=== PATIENT | female | born 1985 | race Caucasian/White ===

== ENCOUNTER → 2016-09-02 | Outpatient (CLI) | payer BC ==
[2016-09-02 11:57] LABS: Basophils % (A) 1 %; CH 32.2; CHCM 34.2; Eosinophils # (A) 0.2 k/uL (0-0.7); Eosinophils % (A) 4 %; HCT 43.9 % (34.0-46.0); HGB 14.4 gm/dL (11.4-16.0); Luc # (Auto) 0.12; Luc % (Auto) 3; Lymphocytes # (A) 0.9 k/uL (1.0-4.8); Lymphocytes % (A) 19 %; MCHC 32.7 g/dL (31.0-37.0); MCV 94.7 fL (80.0-100.0); Mean Platelet Volume 6.2; Monocytes # (A) 0.3 k/uL (0-1.0); Monocytes % (A) 7 %; Neutrophils # (A) 3.2 k/uL (1.3-7.7); Neutrophils % (A) 67 %; RBC 4.64 m/uL (3.80-5.40); RDW 12.2 % (11.5-15.5); WBC 4.8 k/uL (3.8-10.6); WBC (Perox) 5.12
[2016-09-02 12:03] LABS: Prothrombin Time 10.6 sec (9.0-12.0)
[2016-09-02 12:51] LABS: ALT 38 U/L (9-52); AST 33 U/L (14-36); Alkaline Phosphatase 45 U/L (38-126); Anion Gap 12 mmol/L; Blood Urea Nitrogen 14 mg/dL (7-17); Calcium 9.3 mg/dL (8.4-10.2); Carbon Dioxide 27 mmol/L (22-30); Chloride 106 mmol/L (98-107); Glucose 97 mg/dL (74-99); Non-African American GFR(MDRD) >60 (>60 ml/min/1.73 sqM); Potassium 3.7 mmol/L (3.5-5.1); Sodium 145 mmol/L (137-145); Total Bilirubin 0.6 mg/dL (0.2-1.3); Total Protein 8.7 g/dL (6.3-8.2)
== END | disposition home or self-care (01) ==
LOC: LABPAT 11:34
PROVIDERS: ATTEND Surgery Plastic and Reconstructive Surgery
DX: Z01.812 Encounter for preprocedural laboratory examination (principal); Z51.81 Encounter for therapeutic drug level monitoring
CPT/HCPCS: 80053; 85025; 85610; 85730

== ENCOUNTER 2016-09-07 09:21 | Day surgery (SDC) | payer BC, OTHER ==
[2016-09-01 09:37] VITALS: BMI 21.5
--- NOTE | 2016-09-07 06:08 | P.GSHP ---
History of Present Illness H&P Date: 09/07/16 CHIEF COMPLAINT: Incisional hernia. HISTORY OF PRESENT ILLNESS: Anyi Garcia is a 30-year-old female who is now at least 3+ years out from a diaphragmatic hiatal hernia. At that time, she weighed no more than 96 pounds. Today, she comes in with over 20 pound weight gain. She is getting infusions for her underlying Sjogren's disease. She also had a hysterectomy as well as back procedure. She is on multiple pain medications as well MS Contin and Piedmont 10s. She had diagnostic studies that are consistent with hernia of the epigastrium. Incidentally, she is now back on Prilosec as well. She reports that her pain of the epigastrium has become worse in the past month. PAST MEDICAL HISTORY: Lupus. Reynauds disease. Sjogrens. Osteoarthritis. Hypothyroidism. PAST SURGICAL HISTORY: Appendectomy. Cholecystectomy. Left cleft cyst excision. Placement of a titanium screw. Lap Bubba. MEDICATIONS: Please see list. ALLERGIES: Please see list. SOCIAL HISTORY: No illicit drug use FAMILY HISTORY: No reports of Crohn disease or ulcerative colitis. REVIEW OF ORGAN SYSTEMS: CONSTITUTIONAL: No reports of fevers or chills. GI: Denies any blood in stools or constipation. PHYSICAL EXAM: VITAL SIGNS: Stable GENERAL: Well-developed pleasant female in no acute distress. HEENT: No scleral icterus. Extraocular movements grossly intact. Moist buccal mucosa. NECK: Supple without lymphadenopathy. CHEST: Unlabored respirations. Equal bilateral excursions. CARDIOVASCULAR: Regular rate and rhythm. Distal 2+ pulses. Abdomen: Palpable 3 cm epigastric incisional ventral hernia, tender and no skin changes. MUSCULOSKELETAL: No clubbing, cyanosis, or edema. ASSESSMENT: 1. Incisional hernia. 2. Epigastric abdominal pain. 3. Chronic pain syndrome. 4. Gastroesophageal reflux disease. 5. Prior history of Bubba fundoplasty. 6. History of weight gain. 7. Autoimmune disease. 8. Lupus. 9. Sjogren's disease. PLAN: 1. I have recommended laparoscopic incisional ventral hernia repair with possibility of mesh placement. 2. She is an active smoker and I have asked her to discontinue, as this will increase the risk for complications and infections. 3. I have also recommended an upper endoscopy as she has recurrent reflux disease. She is also at risk for gastric ulcers between the steroids and Plaquenil. 4. No lifting over 4 pounds for 4 weeks was advised. 5. Disability paperwork to be filled upon completion of her surgery. 6. DVT prophylaxis. 7. Antibiotics prophylaxis. Past Medical History Past Medical History: Deep Vein Thrombosis (DVT), Fibromyalgia, GERD/Reflux, Liver Disease, Rheumatoid Arthritis (RA), Thyroid Disorder Additional Past Medical History / Comment(s): SJOGREN'S, LUPUS, RAYNAUDS, LIVER TOXICITY, chronic pancreatis, fatty liver, hx thrush, hx anemia, pleurisy, "protein in kidneys" History of Any Multi-Drug Resistant Organisms: None Reported Past Surgical History: Appendectomy, Cholecystectomy, Ear Surgery, Hysterectomy , Tonsillectomy Additional Past Surgical History / Comment(s): ABSCESS after RUPTURED APPENDECTOMY, BENIGN TUMORS REMOVED FROM NECK AND MOUTH, sugery for hiatal hernia, plastic surgery on lower lip, TITANIUM screw insterted in mouth, mediport Past Anesthesia/Blood Transfusion Reactions: Postoperative Nausea & Vomiting ( PONV) Additional Past Anesthesia/Blood Transfusion Reaction / Comment(s): States heart rate very sensitive to anesthesia r/t lupus, occ drop in BP, "I USUALLY NEED STEROIDS TO COME OUT OF SURGERY" Past Psychological History: Anxiety, Depression Smoking Status: Current every day smoker Past Alcohol Use History: Rare Additional Past Alcohol Use History / Comment(s): SMOKES < 1/2 PPD- smoked on and off since age 13 Past Drug Use History: None Reported - Past Family History Mother Family Medical History: No Reported History Medications and Allergies Home Medications Medication Instructions Recorded Confirmed Type Biotin 5 mg PO DAILY 12/11/13 09/01/16 History Benlysta Infusion 1 applicate IV DIRECTED 06/18/15 09/01/16 History Cholecalciferol [Vitamin D3] 5,000 unit PO DAILY 06/18/15 09/01/16 History Hydrocodone/Acetaminophen [Piedmont 1 tab PO QID PRN 06/18/15 09/01/16 History 10-325] methylPREDNISolone 24 mg PO DAILY 06/30/15 09/01/16 History ALPRAZolam [Xanax] 0.25 mg PO BID PRN 09/01/16 09/01/16 History Hydroxychloroquine Sulfate 100 mg PO BID 09/01/16 09/01/16 History [Plaquenil] Levothyroxine Sodium [Synthroid] 125 mcg PO DAILY 09/01/16 09/01/16 History Morphine Sulfate [Ms Contin] 15 mg PO HS PRN 09/01/16 09/01/16 History Morphine Sulfate [Ms Contin] 30 mg PO QAM PRN 09/01/16 09/01/16 History Omeprazole [PriLOSEC] 20 mg PO AC-BRKFST 09/01/16 09/01/16 History Ondansetron HCl [Zofran] 8 mg PO QID PRN 09/01/16 09/01/16 History Allergies Allergy/AdvReac Type Severity Reaction Status Date / Time Penicillins Allergy Rash/Hives Verified 09/01/16 09:17 leflunomide [From Arava] AdvReac liver Verified 09/01/16 09:17 toxicity
[~2016-09-07 09:21] MED LIST: ACETAMINOPHEN IVPB ONE; BUPIVACAINE LIPOSOME/PF 1.3% 20 ML, BUPIVACAIN-EPI 0.5%-1:200,000 25 ML, SODIUM CHLORID... MISCELLANE ONE; DEXAMETHASONE SOD PHOSPHATE 10 MG/ML 1 ML VIAL IV ONE; HEPARIN SODIUM,PORCINE 5,000 UNIT/ML 1 ML VIAL SQ ONE; HYDROCORTISONE SUCCINATE 100 MG/2 ML VIAL IV STA; LACTATED RINGERS 1,000 ML IV SCH; LIDOCAINE 1% 20 ML VIAL (10MG/ML) FOR IV START INTRADERMA PRN; ONDANSETRON 4 MG/2 ML VIAL IVP ONE; SCOPOLAMINE 1.5MG/72HR PATCH TRANSDERM ONE; ceFAZolin 2 GM in SODIUM CHLORIDE 0.9% 100 ML IVPB ONE
[2016-09-07 10:20] LABS: Glucose,Whole Blood 68 mg/dL (75-99)
[2016-09-07] MEDS ORDERED: GLYCOPYRROLATE 0.2 MG/ML 2 ML VIAL ONE (11:15)
[2016-09-07] MEDS ORDERED: LIDOCAINE 1% INJ 10MG/ML (20 ML MDV) ONE (11:15)
[2016-09-07] MEDS ORDERED: PROPOFOL 10 MG/ML 20 ML VIAL IV ONE (11:15)
[2016-09-07] MEDS ORDERED: fentaNYL (PF) 50 MCG/ML 2 ML AMP ONE (11:15)
[2016-09-07] MEDS ORDERED: NEOSTIGMINE 1 MG/ML 10 ML VIAL ONE (11:15)
[2016-09-07] MEDS ORDERED: SUCCINYLCHOLINE CHLORIDE 100 MG/5 ML SYR IV ONE (11:15)
[2016-09-07] MEDS ORDERED: ROCURONIUM BROMIDE 10 MG/ML 10 ML VIAL IV ONE (11:15)
[2016-09-07] MEDS ORDERED: MIDAZOLAM 2 MG/2 ML VIAL ONE (11:15)
[2016-09-07] MEDS ORDERED: LACTATED RINGERS 1,000 ML IV ONE (11:57)
--- NOTE | 2016-09-07 12:26 | P.OP ---
Date of Procedure: 09/07/16 Description of Procedure: SURGEON: PAULA FIGUEROA MD PREOPERATIVE DIAGNOSIS: 1. Incisional epigastric ventral hernia, epigastrium, initial. 2. History of tobacco use. 3. Depression without acute psychosis. 4. Anxiety. 5. Systemic lupus. 6. Sjgren's disease. 7. Chronic pain syndrome. 8. Hypothyroidism. 9. Adrenal insufficiency. 10. Gastroesophageal reflux disease. 11. History of gastric ulcers. POSTOPERATIVE DIAGNOSIS: 1. Incisional epigastric ventral hernia, epigastrium, initial. 2. History of tobacco use. 3. Depression without acute psychosis. 4. Anxiety. 5. Systemic lupus. 6. Sjgren's disease. 7. Chronic pain syndrome. 8. Hypothyroidism. 9. Adrenal insufficiency. 10. Gastroesophageal reflux disease. 11. History of gastric ulcers. 12. Incarcerated incisional epigastric ventral hernia, 3 cm. OPERATION: 1. Laparoscopic ventral hernia repair with Bard Ventralight ST mesh 11.4 cm, circular mesh. 2. Peritoneal abdominal wall block along the epigastrium with Exparel. 3. Intraoperative esophagogastroduodenoscopy with biopsy along the antrum (see separate operative note.) ANESTHESIA: General with 85 mL with Exparel, Sensorcaine epinephrine and normal saline mixture ESTIMATED BLOOD LOSS: 2 mL SPECIMENS REMOVED: Antrum COMPLICATIONS: None. INDICATIONS: The patient is a 30-year-old female who presents with symptomatic bulge along the epigastrium with abdominal pain. Clinical exam is consistent with a ventral hernia from a previous incision. She was encouraged to discontinue tobacco use asked to optimize her perioperative and postsurgical care. Benefits and risks were described including placement of mesh. Informed consent was obtained. DESCRIPTION: Patient was brought into the operating room, laid in supine position. After general induction, abdomen was prepped and draped in standard sterile fashion, including placement of Ioban draping. Prior to incision, a timeout protocol was performed with the surgical team, confirming the patient's name, procedure to be performed, including preoperative medications, for which she received IV antibiotics. A 5 mm transverse incision was made along the left upper abdomen. A 0-degree 5 mm laparoscopic trocar entry was entered into peritoneal cavity. Diagnostic laparoscopy demonstrated no entry to bowel, viscera or mesentery. The liver surface was unremarkable. The small bowel was unremarkable. A defect was confirmed along the epigastrium at the falciform ligament abdominal wall. Two other 5 mm trocars were placed, one along the left lateral abdominal wall and the other along the right lateral abdominal wall under direct visualization. Attention was then brought to the abdominal wall, where a 3 cm defect involving the falciform ligament at the epigastrium was reduced into abdominal cavity. The abdominal fat was cleaned from the abdominal wall for application of a Ventralight mesh. The fascial defect of 3 cm was found and an 11.4 cm mesh was selected. Via the epigastric port, the mesh was inserted into abdominal cavity. A peritoneal block of 85 mL Exparel mixture was placed along the epigastrium and along the hernia site to minimize postoperative pain. Next, the Ventralight ST mesh was placed into the abdominal cavity after placing a loop of 1-0 Prolene at the epicenter. Faisal-Alison was used to draw the loop of the central portion of the mesh through the skin. On the periphery, Sorbafix was placed including along the body of the mesh. The tackers were placed approximately 1 cm in distance along the edge of the mesh. All instruments and pneumoperitoneum were removed from the abdominal cavity. Incisions were reapproximated using 4-0 Monocryl in an interrupted fashion. Dermabond was applied to the skin. Once dried, an abdominal binder was placed. An intraoperative esophagogastroduodenoscopy was performed. Please see separate operative note. At the end of the procedure, needle, sponge and instrument count was verified correct by the surgical supplies sterilizer. The patient had tolerated the procedure well and was awakened from anesthesia without sequelae. Intraoperative films were shared with the patient's family who were pleased with level of care. FINDINGS: 1. A 3-cm incarcerated ventral hernia at the epigastrium.
[2016-09-07] MEDS ORDERED: ONDANSETRON 4 MG/2 ML VIAL IVP PRN (12:27)
[2016-09-07] MEDS ORDERED: PROMETHAZINE 25 MG TAB PO PRN (12:27)
[2016-09-07] MEDS ORDERED: HYDROcodone/APAP 5-325MG 1 EACH TAB PO PRN (12:27)
[2016-09-07] MEDS ORDERED: NALOXONE 0.4 MG/ML 1 ML VIAL IV PRN (12:27)
[2016-09-07 12:28] VITALS: TEMP 97.2
[2016-09-07] MEDS ORDERED: KETOROLAC 30 MG/ML 1 ML VIAL IVP ONE (12:30)
--- NOTE | 2016-09-07 12:31 | P.PCN ---
Date of Procedure: 09/07/16 Description of Procedure: PREOPERATIVE DIAGNOSIS: History of gastric ulcers. Epigastric abdominal pain. Chronic steroid use. History of fundoplasty. POSTOPERATIVE DIAGNOSIS: History of gastric ulcers. Epigastric abdominal pain. Chronic steroid use. Gastroesophageal reflux disease. History of fundoplasty. OPERATION: Esophagogastroduodenoscopy with biopsies along antrum. SURGEON: Glenna Dockery MD ANESTHESIA: MAC. INDICATIONS: The patient is a 30-year-old female who presents with a history of reflux disease. Benefits and risks of the procedure were described. Informed consent was obtained. DESCRIPTION: The patient was brought into the endoscopy suite and laid in the left lateral decubitus position. An Olympus gastroscope was passed along the posterior oropharynx down to the distal esophagus where the squamocolumnar junction was encountered with 1 cm recurrence of her hiatal hernia. The stomach was entered and no bile reflux was found. Additional findings are listed below. Biopsies with cold forceps were obtained of the antrum. The first through third portion of the duodenum was examined and unremarkable. Retroflexion of the scope confirmed Hill grade II/III lower esophageal valve consistent with loosening of her Bubba fundoplasty. The squamocolumnar junction demostrated acute LA grade A erosive esophagitis. The stomach was desufflated. The patient tolerated the procedure well. FINDINGS: Squamocolumnar junction 35 cm from the incisors. Hill grade II/II lower esophageal valve. LA grade A erosive esophagitis. No active duodenitis. Chronic gastritis without evidence of ulcers. 1 cm recurrent diaphragmatic hiatal hernia. RECOMMENDATIONS: Continue medical therapy. Further recommendations pending results of pathology report. Upper endoscopy as needed.
[2016-09-07] MEDS: HYDROmorphone 1 MG/ML 1 ML SYRINGE IVP PRN ×8 (12:33→13:34)
[2016-09-07] MEDS: MIDAZOLAM 2 MG/2 ML VIAL IVP ONE ×3 (12:52→14:01)
[2016-09-07] MEDS ORDERED: MIDAZOLAM 2 MG/2 ML VIAL IVP ONE (12:53)
[2016-09-07 14:35] VITALS: RESP 14
[2016-09-07 15:54] VITALS: BP 119/65; PULSE 61
== END 2016-09-07 16:06 | disposition home or self-care (01) ==
LOC: OR 09:21
PROVIDERS: ATTEND Surgery Plastic and Reconstructive Surgery
DX: K43.0 Incisional hernia with obstruction, without gangrene (principal); K21.0 Gastro-esophageal reflux disease with esophagitis; K29.50 Unspecified chronic gastritis without bleeding; K44.9 Diaphragmatic hernia without obstruction or gangrene; Z87.11 Personal history of peptic ulcer disease; M35.00 Sjogren syndrome, unspecified; M32.9 Systemic lupus erythematosus, unspecified; M19.90 Unspecified osteoarthritis, unspecified site; E03.9 Hypothyroidism, unspecified; G89.4 Chronic pain syndrome; M79.7 Fibromyalgia; M06.9 Rheumatoid arthritis, unspecified; K76.0 Fatty (change of) liver, not elsewhere classified; F41.9 Anxiety disorder, unspecified; F32.9 Major depressive disorder, single episode, unspecified; E27.40 Unspecified adrenocortical insufficiency; Z86.718 Personal history of other venous thrombosis and embolism; Z79.891 Long term (current) use of opiate analgesic; Z79.52 Long term (current) use of systemic steroids; Z79.899 Other long term (current) drug therapy; F17.200 Nicotine dependence, unspecified, uncomplicated; Z88.0 Allergy status to penicillin
CPT/HCPCS: 81025; 88305; 88342; 49655; 43239; C1781 ×2; J2250; J1644; J1100; J2710; J1720; J0690; J2405; J2001; J3010; J1885; J1170; J1642; J0131; J0330; C9290; J2704

== ENCOUNTER 2017-01-26 11:49 | Observation (INO) | payer BC, OTHER ==
[2017-01-26] MEDS ORDERED: SODIUM CHLORIDE 0.9% 1,000 ML IV STA (12:32)
[2017-01-26] MEDS ORDERED: RX INFO: IV CONTRAST WAS GIVEN 1 EACH MISC MISCELLANE PRN (12:32)
[2017-01-26] MEDS ORDERED: DICYCLOMINE 10 MG/ML 2 ML AMP IM STA (12:32)
[2017-01-26] MEDS ORDERED: SODIUM CHLORIDE 0.9% 500 ML IV STA (12:32)
[2017-01-26] MEDS ORDERED: ONDANSETRON 4 MG/2 ML VIAL IVP STA (12:32)
[2017-01-26] MEDS ORDERED: FAMOTIDINE 20 MG/2 ML VIAL IV STA (12:33)
--- NOTE | 2017-01-26 12:37 | ED ---
General Adult HPI - General Chief complaint: Abdominal Pain Stated complaint: chest pain, swollen lymph, jaundice Time Seen by Provider: 01/26/17 12:24 Source: patient, RN notes reviewed Mode of arrival: wheelchair Limitations: no limitations - History of Present Illness Initial comments: Patient is a pleasant 31-year-old female presenting to the emergency department complaining of not feeling well. Patient states symptoms have been present for a couple of weeks. Patient feels fatigued. Patient has chest discomfort and abdominal discomfort. Patient has been having a lot of diarrhea. Patient was told her eyes look jaundiced. Patient does have nausea. No vomiting. Patient noticed lymph node behind her left neck that seems to be varying in size this. Patient states her fingers have been tingly at times which she attributes to her Raynaud's and states there is associated discoloration of the fingertips. - Related Data Home Medications Medication Instructions Recorded Confirmed Biotin 5 mg PO DAILY 12/11/13 01/26/17 Benlysta Infusion 1 applicate IV Q28D 06/18/15 01/26/17 Cholecalciferol [Vitamin D3] 5,000 unit PO DAILY 06/18/15 01/26/17 Hydrocodone/Acetaminophen [Caro 1 tab PO QID PRN 06/18/15 01/26/17 10-325] methylPREDNISolone 24 mg PO DAILY 06/30/15 01/26/17 ALPRAZolam [Xanax] 0.25 mg PO BID PRN 09/01/16 01/26/17 Hydroxychloroquine Sulfate 200 mg PO BID 09/01/16 01/26/17 [Plaquenil] Levothyroxine Sodium [Synthroid] 125 mcg PO DAILY 09/01/16 01/26/17 Omeprazole [PriLOSEC] 20 mg PO AC-BRKFST 09/01/16 01/26/17 Ondansetron [Zofran] 4 mg PO Q8H 01/26/17 01/26/17 fentaNYL 25MCG/HR PATCH [Duragesic 1 patch TOPICAL Q72H 01/26/17 01/26/17 25MCG/HR] Previous Rx's Medication Instructions Recorded Hydrocodone/Acetaminophen [Caro 1 each PO Q4HR PRN #15 tab 01/26/17 5-325] Levofloxacin [Levaquin] 500 mg PO DAILY #10 tab 01/26/17 Ondansetron Odt [Zofran Odt] 4 mg PO Q8HR PRN #10 tab 01/26/17 Allergies Allergy/AdvReac Type Severity Reaction Status Date / Time Penicillins Allergy Rash/Hives Verified 01/26/17 13:04 leflunomide [From Arava] AdvReac liver Verified 01/26/17 13:04 toxicity Review of Systems ROS Statement: Those systems with pertinent positive or pertinent negative responses have been documented in the HPI. ROS Other: All systems not noted in ROS Statement are negative. Constitutional: Denies: fever Eyes: Denies: eye pain ENT: Denies: ear pain Respiratory: Denies: cough Cardiovascular: Reports: chest pain Endocrine: Reports: fatigue Gastrointestinal: Reports: abdominal pain, nausea, diarrhea Genitourinary: Denies: dysuria Musculoskeletal: Denies: back pain Skin: Reports: rash (Patient had a sudden rash or couple of weeks ago however this has resolved). Denies: lesions Neurological: Reports: weakness (Generalized) Past Medical History Past Medical History: Deep Vein Thrombosis (DVT), Fibromyalgia, GERD/Reflux, Liver Disease, Rheumatoid Arthritis (RA), Thyroid Disorder Additional Past Medical History / Comment(s): SJOGREN'S, LUPUS, RAYNAUDS, LIVER TOXICITY, chronic pancreatis, fatty liver, hx thrush, hx anemia, pleurisy, "protein in kidneys" History of Any Multi-Drug Resistant Organisms: None Reported Past Surgical History: Appendectomy, Cholecystectomy, Ear Surgery, Hysterectomy , Tonsillectomy Additional Past Surgical History / Comment(s): ABSCESS after RUPTURED APPENDECTOMY, BENIGN TUMORS REMOVED FROM NECK AND MOUTH, sugery for hiatal hernia, plastic surgery on lower lip, TITANIUM screw insterted in mouth, mediport Past Anesthesia/Blood Transfusion Reactions: Postoperative Nausea & Vomiting ( PONV) Additional Past Anesthesia/Blood Transfusion Reaction / Comment(s): States heart rate very sensitive to anesthesia r/t lupus, occ drop in BP, "I USUALLY NEED STEROIDS TO COME OUT OF SURGERY" Past Psychological History: Anxiety, Depression Smoking Status: Current every day smoker Past Alcohol Use History: Rare Past Drug Use History: None Reported - Past Family History Mother Family Medical History: No Reported History General Exam Limitations: no limitations General appearance: alert, in no apparent distress Head exam: Present: atraumatic Eye exam: Present: normal appearance, PERRL, EOMI. Absent: scleral icterus ENT exam: Present: normal oropharynx Neck exam: Present: normal inspection Respiratory exam: Present: normal lung sounds bilaterally Cardiovascular Exam: Present: regular rate, normal rhythm Expanded Peripheral pulses: 2+: Radial (R), Radial (L), Dorsalis Pedis (R), Dorsalis Pedis (L) GI/Abdominal exam: Present: soft, tenderness (Mild to moderate diffuse tenderness), normal bowel sounds. Absent: distended, guarding, rebound, rigid, pulsatile mass Extremities exam: Present: normal inspection Neurological exam: Present: alert Psychiatric exam: Present: normal affect, normal mood Skin exam: Present: normal color Course Vital Signs 01/26/17 01/26/17 11:55 15:16 Temperature 98.1 F 98.5 F Pulse Rate 81 51 L Respiratory 18 15 Rate Blood Pressure 143/92 140/81 O2 Sat by Pulse 100 100 Oximetry EKG Findings - EKG Comments: EKG Findings:: Normal sinus rhythm 65. Normal intervals. Normal axis. Normal QRS. No acute ST change. Medical Decision Making - Medical Decision Making Blood work was drawn from the patient's port which does explain elevated PTT alone. Patient reexamined and resting comfortably in bed. Abdomen still with mild tenderness left lower quadrant. Patient offered admission however would like to go home. Patient was updated on results. - Lab Data Result diagrams: 01/26/17 13:25 01/26/17 13:25 Lab Results 01/26/17 01/26/17 01/26/17 Range/Units 13:25 13:25 13:25 WBC 8.7 (3.8-10.6) k/uL RBC 4.23 (3.80-5.40) m/uL Hgb 13.8 (11.4-16.0) gm/dL Hct 38.9 (34.0-46.0) % MCV 92.0 (80.0-100.0) fL MCH 32.6 (25.0-35.0) pg MCHC 35.4 (31.0-37.0) g/dL RDW 12.8 (11.5-15.5) % Plt Count 234 (150-450) k/uL Neutrophils % 78 % Lymphocytes % 12 % Monocytes % 6 % Eosinophils % 2 % Basophils % 1 % Neutrophils # 6.8 (1.3-7.7) k/uL Lymphocytes # 1.1 (1.0-4.8) k/uL Monocytes # 0.5 (0-1.0) k/uL Eosinophils # 0.2 (0-0.7) k/uL Basophils # 0.1 (0-0.2) k/uL PT (9.0-12.0) sec INR (<1.1) APTT (22.0-30.0) sec Sodium 142 (137-145) mmol/L Potassium 3.7 (3.5-5.1) mmol/L Chloride 106 (98-107) mmol/L Carbon Dioxide 25 (22-30) mmol/L Anion Gap 11 mmol/L BUN 9 (7-17) mg/dL Creatinine 0.69 (0.52-1.04) mg/dL Est GFR (MDRD) Af Amer >60 (>60 ml/min/1.73 sqM) Est GFR (MDRD) Non-Af >60 (>60 ml/min/1.73 sqM) Glucose 91 (74-99) mg/dL Calcium 9.6 (8.4-10.2) mg/dL Total Bilirubin 0.6 (0.2-1.3) mg/dL AST 22 (14-36) U/L ALT 25 (9-52) U/L Alkaline Phosphatase 49 (38-126) U/L Total Creatine Kinase 53 (30-135) U/L CK-MB (CK-2) 0.4 (0.0-2.4) ng/mL CK-MB (CK-2) Rel Index 0.8 Troponin I <0.012 (0.000-0.034) ng/mL Total Protein 8.6 H (6.3-8.2) g/dL Albumin 4.7 (3.5-5.0) g/dL Amylase 119 H (30-110) U/L Lipase 215 (23-300) U/L Urine Color Urine Appearance (Clear) Urine pH (5.0-8.0) Ur Specific [place] (1.001-1.035) Urine Protein (Negative) Urine Glucose (UA) (Negative) Urine Ketones (Negative) Urine Blood (Negative) Urine Nitrite (Negative) Urine Bilirubin (Negative) Urine Urobilinogen (<2.0) mg/dL Ur Leukocyte Esterase (Negative) Urine RBC (0-5) /hpf Urine WBC (0-5) /hpf Ur Squamous Epith Cells (0-4) /hpf Amorphous Sediment (None) /hpf Urine Bacteria (None) /hpf Urine Mucus (None) /hpf Urine HCG, Qual (Not Detectd) 01/26/17 01/26/17 01/26/17 Range/Units 13:25 13:25 13:25 WBC (3.8-10.6) k/uL RBC (3.80-5.40) m/uL Hgb (11.4-16.0) gm/dL Hct (34.0-46.0) % MCV (80.0-100.0) fL MCH (25.0-35.0) pg MCHC (31.0-37.0) g/dL RDW (11.5-15.5) % Plt Count (150-450) k/uL Neutrophils % % Lymphocytes % % Monocytes % % Eosinophils % % Basophils % % Neutrophils # (1.3-7.7) k/uL Lymphocytes # (1.0-4.8) k/uL Monocytes # (0-1.0) k/uL Eosinophils # (0-0.7) k/uL Basophils # (0-0.2) k/uL PT 11.4 (9.0-12.0) sec INR 1.1 (<1.1) APTT 99.2 H* (22.0-30.0) sec Sodium (137-145) mmol/L Potassium (3.5-5.1) mmol/L Chloride (98-107) mmol/L Carbon Dioxide (22-30) mmol/L Anion Gap mmol/L BUN (7-17) mg/dL Creatinine (0.52-1.04) mg/dL Est GFR (MDRD) Af Amer (>60 ml/min/1.73 sqM) Est GFR (MDRD) Non-Af (>60 ml/min/1.73 sqM) Glucose (74-99) mg/dL Calcium (8.4-10.2) mg/dL Total Bilirubin (0.2-1.3) mg/dL AST (14-36) U/L ALT (9-52) U/L Alkaline Phosphatase (38-126) U/L Total Creatine Kinase (30-135) U/L CK-MB (CK-2) (0.0-2.4) ng/mL CK-MB (CK-2) Rel Index Troponin I (0.000-0.034) ng/mL Total Protein (6.3-8.2) g/dL Albumin (3.5-5.0) g/dL Amylase (30-110) U/L Lipase (23-300) U/L Urine Color Light Yellow Urine Appearance Cloudy H (Clear) Urine pH 7.5 (5.0-8.0) Ur Specific [place] 1.006 (1.001-1.035) Urine Protein Negative (Negative) Urine Glucose (UA) Negative (Negative) Urine Ketones Negative (Negative) Urine Blood Negative (Negative) Urine Nitrite Negative (Negative) Urine Bilirubin Negative (Negative) Urine Urobilinogen <2.0 (<2.0) mg/dL Ur Leukocyte Esterase Negative (Negative) Urine RBC 1 (0-5) /hpf Urine WBC 3 (0-5) /hpf Ur Squamous Epith Cells 13 H (0-4) /hpf Amorphous Sediment Rare H (None) /hpf Urine Bacteria Rare H (None) /hpf Urine Mucus Rare H (None) /hpf Urine HCG, Qual Not Detected (Not Detectd) Disposition Clinical Impression: Acute colitis Disposition: HOME SELF-CARE Condition: Stable Instructions: Colitis (ED) Additional Instructions: Please follow-up with your primary care physician in the next day or 2 for recheck. Return for fevers, increased pain, weakness, worsening symptoms or other concerns. Prescriptions: Hydrocodone/Acetaminophen [Caro 5-325] 1 each PO Q4HR PRN #15 tab PRN Reason: Pain Levofloxacin [Levaquin] 500 mg PO DAILY #10 tab Ondansetron Odt [Zofran Odt] 4 mg PO Q8HR PRN #10 tab PRN Reason: Nausea Referrals: Steven Ferguson MD [Primary Care Provider] - 1-2 days Time of Disposition: 16:11
[2017-01-26 13:41] LABS: Basophils # (A) 0.1 k/uL (0-0.2); Basophils % (A) 1 %; CH 32.8; CHCM 35.9; Eosinophils # (A) 0.2 k/uL (0-0.7); Eosinophils % (A) 2 %; HCT 38.9 % (34.0-46.0); HDW 2.87; HGB 13.8 gm/dL (11.4-16.0); Luc % (Auto) 1; Lymphocytes # (A) 1.1 k/uL (1.0-4.8); Lymphocytes % (A) 12 %; MCH 32.6 pg (25.0-35.0); MCHC 35.4 g/dL (31.0-37.0); Mean Platelet Volume 6.8; Monocytes # (A) 0.5 k/uL (0-1.0); Monocytes % (A) 6 %; Neutrophils # (A) 6.8 k/uL (1.3-7.7); Neutrophils % (A) 78 %; RBC 4.23 m/uL (3.80-5.40); RDW 12.8 % (11.5-15.5); WBC 8.7 k/uL (3.8-10.6); WBC (Perox) 8.16
[2017-01-26 13:47] LABS: Amorphous Sediment,Urine Rare /hpf; Appearance,Urine Cloudy (Clear); Bacteria,Urine Rare /hpf; Bilirubin,Urine Negative (Negative); Glucose,Urine (UA) Negative (Negative); Ketones,Urine Negative (Negative); Leukocyte Esterase,Urine Negative (Negative); Mucus,Urine Rare /hpf; Nitrite,Urine Negative (Negative); PH, Urine 7.5 (5.0-8.0); Particle Count 5595; Protein,Urine Negative (Negative); RBC,Urine 1 /hpf (0-5); Specific Gravity,Urine 1.006 (1.001-1.035); Squamous Epithelial Cell,Urine 13 /hpf (0-4); UA Billing (MACRO vs. MICRO) MICRO; Urobilinogen,Urine <2.0 mg/dL (<2.0); WBC,Urine 3 /hpf (0-5)
[2017-01-26 13:51] LABS: ALT 25 U/L (9-52); AST 22 U/L (14-36); Alkaline Phosphatase 49 U/L (38-126); Amylase 119 U/L (30-110); Anion Gap 11 mmol/L; Blood Urea Nitrogen 9 mg/dL (7-17); Calcium 9.6 mg/dL (8.4-10.2); Carbon Dioxide 25 mmol/L (22-30); Chloride 106 mmol/L (98-107); Glucose 91 mg/dL (74-99); Non-African American GFR(MDRD) >60 (>60 ml/min/1.73 sqM); Potassium 3.7 mmol/L (3.5-5.1); Sodium 142 mmol/L (137-145); Total Bilirubin 0.6 mg/dL (0.2-1.3); Total Protein 8.6 g/dL (6.3-8.2)
[2017-01-26 14:07] LABS: INR 1.1 (<1.1); Prothrombin Time 11.4 sec (9.0-12.0)
[2017-01-26 14:09] LABS: Creatine Kinase 53 U/L (30-135)
[2017-01-26 14:22] LABS: Creatine Kinase MB 0.4 ng/mL (0.0-2.4); Troponin I <0.012 ng/mL (0.000-0.034)
[2017-01-26 14:44] LABS: Partial Thromboplastin Time 99.2 sec (22.0-30.0)
--- NOTE | 2017-01-26 15:41 | XR ---
EXAMINATION TYPE: XR chest 2V DATE OF EXAM: 01/26/2017 COMPARISON: None HISTORY: 31-year-old female with abdominal pain TECHNIQUE: Frontal and lateral views FINDINGS: Right anterior chest wall injection port with catheter tip at the lower SVC. The cardiomediastinal silhouette, aorta, and pulmonary vasculature are within normal limits. No conso lidation or pleural effusion. IMPRESSION: No focal infiltrate. Right-sided chest port in place.
--- NOTE | 2017-01-26 15:44 | CT ---
EXAMINATION TYPE: CT abdomen pelvis w con DATE OF EXAM: 01/26/2017 COMPARISON: Prior CT abdomen pelvis 03/08/2013 HISTORY: Pt states of abdominal pain. HX of lupus. CT DLP: 332.4 mGycm Automated exposure control for dose reduction was used. TECHNIQUE: Helical acquisition of images from the lung bases through the pelvis have been completed. CONTRAST: Performed without Oral Contrast and with IV Contrast, patient injected with 100 mL of Omnipaque 300. FINDINGS: Patient is post Bubba fundoplication. LUNG BASES: No significant abnormality is appreciated. AORTA: No significant abnormality is appreciated. LIVER/GB: Liver shows low attenuation likely due to fatty infiltration. Gallbladder is absent. The li madeline is enlarged. PANCREAS: No significant abnormality is seen. SPLEEN: No significant abnormality is seen. ADRENALS: No significant abnormality is seen. KIDNEYS: No significant abnormality is seen. REPRODUCTIVE ORGANS: There is likely an involuting cyst in the right adnexal region, ovaries are othe rwise unremarkable, uterus is absent BOWEL: Since thickening present of the rectosigmoid colon. There are some fluid-filled loops of smal l bowel present. No evident obstruction. Suspect post appendectomy change. FREE AIR: No Free Air visible. ASCITES: None visible. PELVIC ADENOPATHY: None visualized. RETROPERITONEAL ADENOPATHY: No Retroperitoneal Adenopathy visible. URINARY BLADDER: No significant abnormality is seen. OSSEOUS STRUCTURES: No significant abnormality is seen. IMPRESSION: POSTOP CHANGES. INVOLUTING RIGHT OVARIAN CYST. CORRELATE TO EXCLUDE COLITIS , ENTERITIS. 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
[2017-01-26] MEDS ORDERED: MORPHINE SULFATE 4 MG/ML SYRINGE IV STA (16:06)
[2017-01-26] MEDS ORDERED: ONDANSETRON 4 MG/2 ML VIAL IVP PRN (16:39)
[2017-01-26] MEDS ORDERED: NALOXONE 0.4 MG/ML 1 ML VIAL IV PRN (16:39)
[2017-01-26] MEDS ORDERED: LEVOFLOXACIN 500MG-D5W PMX 500 MG in DEXTROSE/WATER 1 100ML.BAG IVPB STA (16:45)
[2017-01-26 18:25] VITALS: BMI 34.9
[2017-01-26] MEDS: SODIUM CHLORIDE 0.9% 1,000 ML IV SCH ×2 (18:30→23:30)
[2017-01-26] MEDS ORDERED: ALPRAZolam 0.25 MG TAB PO PRN (18:44)
[2017-01-26] MEDS: HYDROXYCHLOROQUINE SULFATE 200 MG TAB PO SCH (20:20)
[2017-01-26] MEDS: MORPHINE SULFATE 4 MG/ML SYRINGE IV PRN (20:34)
[2017-01-26] MEDS: HEPARIN SODIUM,PORCINE 5,000 UNIT/ML 1 ML VIAL SQ SCH (23:29)
[2017-01-26] MEDS: metroNIDAZOLE-NS PMX 500 MG in SALINE 1 100ML.BAG IVPB SCH (23:30)
[2017-01-26] MEDS: HYDROcodone/APAP 10-325MG 1 EACH TAB PO PRN (23:31)
[2017-01-27] MEDS: MORPHINE SULFATE 4 MG/ML SYRINGE IV PRN ×2 (02:57→08:00)
[2017-01-27] MEDS ORDERED: LEVOTHYROXINE 125 MCG TAB PO SCH (06:30)
[2017-01-27] MEDS ORDERED: NON-FORMULARY DRUG (Omeprazole 20 MG) PO SCH (07:30)
[2017-01-27 07:39] VITALS: BP 95/47; RESP 16; TEMP 97.4
[2017-01-27] MEDS: metroNIDAZOLE-NS PMX 500 MG in SALINE 1 100ML.BAG IVPB SCH (07:58)
[2017-01-27] MEDS ORDERED: methylPREDNISolone 4 MG TAB PO SCH (09:00)
[2017-01-27] MEDS ORDERED: PANTOPRAZOLE 40 MG/10 ML VIAL IV SCH (09:00)
[2017-01-27] MEDS ORDERED: NON-FORMULARY DRUG (Biotin [Biotin] 5 MG) PO SCH (09:00)
[2017-01-27] MEDS: HEPARIN SODIUM,PORCINE 5,000 UNIT/ML 1 ML VIAL SQ SCH (09:05)
[2017-01-27] MEDS: HYDROXYCHLOROQUINE SULFATE 200 MG TAB PO SCH (09:05)
[2017-01-27] MEDS: HYDROcodone/APAP 10-325MG 1 EACH TAB PO PRN (10:38)
[2017-01-27 10:47] VITALS: PULSE 47
--- NOTE | 2017-01-27 10:54 | P.CRDCN ---
History of Present Illness Consult date: 01/27/17 History of present illness: 31-year-old lady with history of lupus comes to hospital with symptoms of diarrhea not feeling well and cardiology has been consulted because of bradycardia. She does not have chest pain difficulty in breathing dizziness or focal neurological deficits. There is no prior cardiac history. There is no history of hypertension diabetes dyslipidemia. I believe patient has physiological sinus bradycardia and does not require further evaluation at this time. I reviewed her echocardiogram that was being done that is within normal limits. Review of Systems Constitutional: Denies chills. Denies fever. Eyes: Denies blurred vision. Denies pain. Ears, nose, mouth and throat: Denies headache. Denies sore throat. Cardiovascular: Denies chest pain. Denies shortness of breath. Respiratory: Denies cough. Gastrointestinal: abdominal pain. has diarrhea. Denies nausea. Denies vomiting. Musculoskeletal: Denies myalgias. Integumentary: Denies pruritus. Denies rash. Neurological: Denies numbness. Denies weakness. Psychiatric: Denies anxiety. Denies depression. Endocrine: Denies fatigue. Denies weight change. Genitourinary: Denies burning, hematuria, frequency of urination. Hematological: No anemia or excess bleeding. Past Medical History Past Medical History: Deep Vein Thrombosis (DVT), Fibromyalgia, GERD/Reflux, Liver Disease, Rheumatoid Arthritis (RA), Thyroid Disorder Additional Past Medical History / Comment(s): SJOGREN'S, LUPUS, RAYNAUDS, LIVER TOXICITY, chronic pancreatis, fatty liver, hx thrush, hx anemia, pleurisy, "protein in kidneys" History of Any Multi-Drug Resistant Organisms: None Reported Past Surgical History: Appendectomy, Cholecystectomy, Ear Surgery, Hernia Repair , Hysterectomy, Tonsillectomy Additional Past Surgical History / Comment(s): ABSCESS after RUPTURED APPENDECTOMY, BENIGN TUMORS REMOVED FROM NECK AND MOUTH, sugery for hiatal hernia, plastic surgery on lower lip, TITANIUM screw insterted in mouth, Mediport 2013; sliding hernia surgery with mesh Past Anesthesia/Blood Transfusion Reactions: Postoperative Nausea & Vomiting ( PONV) Additional Past Anesthesia/Blood Transfusion Reaction / Comment(s): States heart rate very sensitive to anesthesia r/t lupus, occ drop in BP, "I USUALLY NEED STEROIDS TO COME OUT OF SURGERY" Past Psychological History: Anxiety, Depression Smoking Status: Current every day smoker Past Alcohol Use History: Rare Past Drug Use History: None Reported - Past Family History Mother Family Medical History: No Reported History Medications and Allergies Home Medications Medication Instructions Recorded Confirmed Type Biotin 5 mg PO DAILY 12/11/13 01/26/17 History Benlysta Infusion 1 applicate IV Q28D 06/18/15 01/26/17 History Cholecalciferol [Vitamin D3] 5,000 unit PO DAILY 06/18/15 01/26/17 History Hydrocodone/Acetaminophen [[place] 1 tab PO QID PRN 06/18/15 01/26/17 History 10-325] methylPREDNISolone 24 mg PO DAILY 06/30/15 01/26/17 History ALPRAZolam [Xanax] 0.25 mg PO BID PRN 09/01/16 01/26/17 History Hydroxychloroquine Sulfate 200 mg PO BID 09/01/16 01/26/17 History [Plaquenil] Levothyroxine Sodium [Synthroid] 125 mcg PO DAILY 09/01/16 01/26/17 History Omeprazole [PriLOSEC] 20 mg PO AC-BRKFST 09/01/16 01/26/17 History Ondansetron [Zofran] 4 mg PO Q8H 01/26/17 01/26/17 History fentaNYL 25MCG/HR PATCH [Duragesic 1 patch TOPICAL Q72H 01/26/17 01/26/17 History 25MCG/HR] Allergies Allergy/AdvReac Type Severity Reaction Status Date / Time Penicillins Allergy Rash/Hives Verified 01/26/17 13:04 leflunomide [From [facility]] AdvReac liver Verified 01/26/17 13:04 toxicity Physical Exam Vitals: Vital Signs Temp Pulse Pulse Resp BP BP Pulse Ox 01/27/17 08:00 47 L 01/27/17 07:38 97.4 F L 45 L 16 95/47 98 01/27/17 00:00 97.0 F L 45 L 18 107/58 100 01/26/17 18:46 52 L 01/26/17 16:29 98.2 F 55 L 18 134/82 97 01/26/17 15:16 98.5 F 51 L 15 140/81 100 01/26/17 11:55 98.1 F 81 18 143/92 100 Intake and Output 01/26/17 01/27/17 01/27/17 22:59 06:59 14:59 Other: # Voids 2 1 Weight 83.915 kg General: The patient is awake and alert, in no distress, and does not appear acutely ill. Skin: Skin is warm and dry and no rashes or lesions are noted. Eye: Pupils are equal, round and reactive to light, extra-ocular movements are intact; there is normal conjunctiva bilaterally. Ears, nose, mouth and throat: There are moist mucous membranes and no oral lesions. Neck: The neck is supple, there is no tenderness or JVD. Cardiovascular: There is a regular rate and rhythm. No murmur, rub or gallop is appreciated. Respiratory: Lungs are clear to auscultation, respirations are non-labored, breath sounds are equal. Gastrointestinal: Soft, non-distended, non-tender abdomen without masses or organomegaly noted. There is no rebound or guarding present. Bowel sounds are unremarkable. Back: There is no tenderness to palpation in the midline. There is no obvious deformity. Musculoskeletal: Normal ROM, no tenderness, There is no pedal edema. There is no calf tenderness or swelling. Extremities: No edema.] Vascular: [Femoral pulse is normal.][ Posterior tibial pulses are normal .][ Dorsalis pedis is palpable.] Neurological: CN II-XII intact. There are no obvious motor or sensory deficits. Speech is normal. Psychiatric: Cooperative, appropriate mood & affect, normal judgment. Results 01/26/17 13:25 01/26/17 13:25 Cardiac Enzymes 01/26/17 01/26/17 Range/Units 13:25 13:25 AST 22 (14-36) U/L CK-MB (CK-2) 0.4 (0.0-2.4) ng/mL Troponin I <0.012 (0.000-0.034) ng/mL Coagulation 01/26/17 01/27/17 Range/Units 13:25 07:57 PT 11.4 (9.0-12.0) sec APTT 99.2 H* 24.0 (22.0-30.0) sec CBC 01/26/17 Range/Units 13:25 WBC 8.7 (3.8-10.6) k/uL RBC 4.23 (3.80-5.40) m/uL Hgb 13.8 (11.4-16.0) gm/dL Hct 38.9 (34.0-46.0) % Plt Count 234 (150-450) k/uL Comprehensive Metabolic Panel 01/26/17 Range/Units 13:25 Sodium 142 (137-145) mmol/L Potassium 3.7 (3.5-5.1) mmol/L Chloride 106 (98-107) mmol/L Carbon Dioxide 25 (22-30) mmol/L BUN 9 (7-17) mg/dL Creatinine 0.69 (0.52-1.04) mg/dL Glucose 91 (74-99) mg/dL Calcium 9.6 (8.4-10.2) mg/dL AST 22 (14-36) U/L ALT 25 (9-52) U/L Alkaline Phosphatase 49 (38-126) U/L Total Protein 8.6 H (6.3-8.2) g/dL Albumin 4.7 (3.5-5.0) g/dL Current Medications Generic Name Dose Route Start Last Admin Trade Name Freq PRN Reason Stop Dose Admin Hydrocodone Bitart/Acetaminophen 1 each 01/26/17 18:44 01/27/17 10:38 [place] 10 PO 1 each QID PRN Administration Pain Alprazolam 0.25 mg 01/26/17 18:44 Xanax PO BID PRN Anxiety/lupus Cholecalciferol 5,000 unit 01/27/17 12:00 Vitamin D3 PO DAILY@1200 FAROOQ Fentanyl 1 patch 01/26/17 20:00 01/26/17 20:19 Duragesic 25mcg/Hr Patch TRANSDERM 1 patch Q72H FAROOQ Administration Heparin Sodium (Porcine) 5,000 unit 01/27/17 00:00 01/27/17 09:05 Heparin SQ Not Given Q8HR FAROOQ Hydroxychloroquine Sulfate 200 mg 01/26/17 21:00 01/27/17 09:05 Plaquenil PO 200 mg BID FAROOQ Administration Levofloxacin 500 mg/ IV 100 mls @ 100 mls/hr 01/27/17 17:00 Solution IVPB Q24H FAROOQ Sodium Chloride 1,000 mls @ 100 mls/hr 01/26/17 16:45 01/26/17 23:30 Saline 0.9% IV 100 mls/hr .Q10H FAROOQ Administration Metronidazole 500 mg/ IV 100 mls @ 100 mls/hr 01/27/17 00:00 01/27/17 07:58 Solution IVPB 100 mls/hr Q8HR FAROOQ Administration Levothyroxine Sodium 125 mcg 01/27/17 06:30 01/27/17 05:57 Synthroid PO 125 mcg DAILY@0630 FAROOQ Administration Methylprednisolone 24 mg 01/27/17 09:00 01/27/17 10:29 Medrol PO 24 mg DAILY FAROOQ Administration Miscellaneous Information 1 each 01/26/17 12:32 01/26/17 13:32 Rx Info: Iv Contrast Was Given MISCELLANE 01/28/17 12:33 1 each DAILY PRN Administration Per Protocol Morphine Sulfate 4 mg 01/26/17 16:39 01/27/17 08:00 Morphine Sulfate (Inj) IV 4 mg Q4HR PRN Administration Severe Pain Naloxone HCl 0.2 mg 01/26/17 16:39 Narcan IV Q2M PRN Opioid Reversal Ondansetron HCl 4 mg 01/26/17 16:39 01/26/17 20:22 Zofran IVP 4 mg Q8HR PRN Administration Nausea And Vomiting Pantoprazole Sodium 40 mg 01/27/17 09:00 01/27/17 09:05 Protonix IV 40 mg DAILY FAROOQ Administration Intake and Output 01/26/17 01/27/17 01/27/17 22:59 06:59 14:59 Other: # Voids 2 1 Weight 83.915 kg 01/26/17 13:25 01/26/17 13:25 EKG Interpretations (text) Normal sinus rhythm with sinus bradycardia Assessment and Plan Plan: Asymptomatic sinus bradycardia physiological there is no evidence of high-grade AV block does not require further workup at this time I reviewed an echocardiogram and it shows normal LV function.
--- NOTE | 2017-01-27 11:02 | ECHOF ---
Referral Reason:Bradycardia MEASUREMENTS -------- HEIGHT: 154.9 cm WEIGHT: 83.9 kg BP: 107/58 RVIDd: 2.4 cm (< 3.3) IVSd: 0.9 cm (0.6 - 1.1) LVIDd: 4.6 cm (3.9 - 5.3) LVPWd: 1.0 cm (0.6 - 1.1) IVSs: 1.2 cm LVIDs: 3.1 cm LVPWs: 1.2 cm LAESV Index (A-L): 14.59 ml/m Ao Diam: 2.9 cm (2.0 - 3.7) AV Cusp: 2.1 cm (1.5 - 2.6) LA Diam: 2.9 cm (2.7 - 3.8) MV EXCURSION: 19.436 mm (> 18.000) MV EF SLOPE: 113 mm/s (70 - 150) EPSS: 0.5 cm MV E Yogi: 0.91 m/s MV DecT: 315 ms MV A Yogi: 0.49 m/s MV E/A Ratio: 1.86 RAP: 5.00 mmHg RVSP: 24.73 mmHg FINDINGS -------- Resting bradycardia (HR<60bpm). This was a technically good study. Overall left ventricular systolic function is normal with, an EF between 60 - 65 %. The right ventricle is normal in size and function. Normal LA size by volume 22+/-6 ml/m2. The right atrium is normal in size. The aortic valve is trileaflet, and appears structurally normal. No aortic stenosis or regurgitation. The mitral valve is normal. There is trace mitral regurgitation. Trace tricuspid regurgitation present. There is no evidence of pulmonary hypertension. The right ventricular systolic pressure, as measured by Doppler, is 24.73mmHg. Pulmonic valve appears structurally normal. The aortic root size is normal. The inferior vena cava is mildly dilated. The pericardium is normal. There is no pericardial effusion. CONCLUSIONS -------- 1. Resting bradycardia (HR<60bpm). 2. The aortic root size is normal. 3. The inferior vena cava is mildly dilated. 4. There is no pericardial effusion. 5. This was a technically good study. 6. Overall left ventricular systolic function is normal with, an EF between 60 - 65 %. 7. Normal LA size by volume 22+/-6 ml/m2. 8. The aortic valve is trileaflet, and appears structurally normal. No aortic stenosis or regurgitation. 9. There is trace mitral regurgitation. 10. Trace tricuspid regurgitation present. 11. There is no evidence of pulmonary hypertension. 12. The right ventricular systolic pressure, as measured by Doppler, is 24.73mmHg. NURSES SUPERINTENDENT: Americo Patel RDCS
[2017-01-27] MEDS: SODIUM CHLORIDE 0.9% 1,000 ML IV SCH (11:53)
[2017-01-27] MEDS ORDERED: CHOLECALCIFEROL 1,000 UNIT TAB PO SCH (12:00)
[2017-01-27] MEDS ORDERED: LEVOFLOXACIN 500MG-D5W PMX 500 MG in DEXTROSE/WATER 1 100ML.BAG IVPB SCH (17:00)
--- NOTE | 2017-01-28 17:46 | P.DS ---
Providers Date of admission: 01/26/17 16:39 Attending physician: Jyothi Amato Consults: 01/26/17 16:40 Consult Physician Urgent Consulting Provider: Benny Cha Consult Reason/Comments: colitis Do you want consulting provider notified?: Yes 01/26/17 18:40 Consult Physician Urgent Consulting Provider: Josias Salazar Consult Reason/Comments: bradycardia Do you want consulting provider notified?: Yes Primary care physician: [facility] Course: 31-year-old female patient came in with competency or abdominal pain and diarrhea , patient's pain did improve compared to day of admission and patient was subsequently discharged with 5 days of Cipro and metronidazole for possibility of infectious colitis which cannot be ruled out patient most probably has viral enteritis and the patient does have history of essentially because of which patient has a fentanyl patch for that. He isn't C. diff testing was not done as patient did not have diarrhea whenever E the patient. Patient was counseled that if she has diarrhea again she will need to discontinue the antibiotic and call primary care physician and get C. diff testing done. History of DVT Fibromyalgia Systemic lupus erythematosus Hypothyroidism: Patient's TSH is elevated because of which I'm increasing levothyroxine to 150 g, patient says she is compliant with medications. PHYSICAL EXAMINATION: GENERAL: The patient is alert and oriented x3, not in any acute distress. Well developed, well nourished. HEENT: Pupils are round and equally reacting to light. EOMI. No scleral icterus. No conjunctival pallor. Normocephalic, atraumatic. No pharyngeal erythema. No thyromegaly. CARDIOVASCULAR: S1 and S2 present. No murmurs, rubs, or gallops. PULMONARY: Chest is clear to auscultation, no wheezing or crackles. ABDOMEN: Soft, patient still has diffuse abdominal tenderness, nondistended, normoactive bowel sounds. No palpable organomegaly. MUSCULOSKELETAL: No joint swelling or deformity. EXTREMITIES: No cyanosis, clubbing, or pedal edema. NEUROLOGICAL: Gross neurological examination did not reveal any focal deficits. SKIN: No rashes. Patient Condition at Discharge: Stable Plan - Discharge Summary New Discharge Prescriptions: New Hydrocodone/Acetaminophen [[place] 5-325] 1 each PO Q4HR PRN #15 tab PRN Reason: Pain Ondansetron Odt [Zofran Odt] 4 mg PO Q8HR PRN #10 tab PRN Reason: Nausea Levofloxacin [Levaquin] 500 mg PO DAILY #5 tab metroNIDAZOLE [Flagyl] 500 mg PO TID #15 tab Levothyroxine Sodium 150 mcg PO DAILY #30 tablet Discontinued Levothyroxine Sodium [Synthroid] 125 mcg PO DAILY No Action Biotin 5 mg PO DAILY Hydrocodone/Acetaminophen [[place] 10-325] 1 tab PO QID PRN PRN Reason: Pain Cholecalciferol [Vitamin D3] 5,000 unit PO DAILY Benlysta Infusion 1 applicate IV Q28D methylPREDNISolone 24 mg PO DAILY ALPRAZolam [Xanax] 0.25 mg PO BID PRN PRN Reason: lupus Omeprazole [PriLOSEC] 20 mg PO AC-BRKFST Hydroxychloroquine Sulfate [Plaquenil] 200 mg PO BID Ondansetron [Zofran] 4 mg PO Q8H fentaNYL 25MCG/HR PATCH [Duragesic 25MCG/HR] 1 patch TOPICAL Q72H Discharge Medication List Biotin 5 mg PO DAILY 12/11/13 [History] Benlysta Infusion 1 applicate IV Q28D 06/18/15 [History] Cholecalciferol [Vitamin D3] 5,000 unit PO DAILY 06/18/15 [History] Hydrocodone/Acetaminophen [[place] 10-325] 1 tab PO QID PRN 06/18/15 [History] methylPREDNISolone 24 mg PO DAILY 06/30/15 [History] ALPRAZolam [Xanax] 0.25 mg PO BID PRN 09/01/16 [History] Hydroxychloroquine Sulfate [Plaquenil] 200 mg PO BID 09/01/16 [History] Omeprazole [PriLOSEC] 20 mg PO AC-BRKFST 09/01/16 [History] Hydrocodone/Acetaminophen [[place] 5-325] 1 each PO Q4HR PRN #15 tab 01/26/17 [Rx] Ondansetron Odt [Zofran Odt] 4 mg PO Q8HR PRN #10 tab 01/26/17 [Rx] Ondansetron [Zofran] 4 mg PO Q8H 01/26/17 [History] fentaNYL 25MCG/HR PATCH [Duragesic 25MCG/HR] 1 patch TOPICAL Q72H 01/26/17 [ History] Levofloxacin [Levaquin] 500 mg PO DAILY #5 tab 01/27/17 [Rx] Levothyroxine Sodium 150 mcg PO DAILY #30 tablet 01/27/17 [Rx] metroNIDAZOLE [Flagyl] 500 mg PO TID #15 tab 01/27/17 [Rx] Follow up Appointment(s)/Referral(s): Shelley Owens NPC [REFERRING] - 02/01/17 3:30 pm Patient Instructions/Handouts: Colitis (ED) Activity/Diet/Wound Care/Special Instructions: Return for fevers, increased pain, weakness, worsening symptoms or other concerns. Soft, bland diet. Discharge Disposition: HOME SELF-CARE
--- NOTE | 2017-01-29 12:23 | HP ---
CHIEF COMPLAINT: Abdominal pain. HISTORY OF PRESENT ILLNESS: Ms. Davila is a 31-year-old female with known history of lupus diagnosed in 2004, Sjogren's syndrome, Raynaud's phenomenon, rheumatoid arthritis, hypothyroidism and chronic pancreatitis with complaints of not feeling well. The patient says that she developed fever and abdominal pain and also had diarrhea and she feels ( ). The patient says her symptoms have been present for a couple of weeks. Patient is suppose to go for infusion for lupus tomorrow, but she was not able to go to [facility] and came to the hospital for further evaluation of the abdominal pain. The patient otherwise does have nausea and no episodes of vomiting. The patient also complained of ( ) cervical lymph nodes enlargement. The patient completed steroid tapering dose three weeks ago. Patient also states that her fingers have been tingling at times which she attributes to her Raynaud's and states there is associated discoloration of the finger tips as well. Otherwise, the patient denied any chest pain or short of breath. No fever, no chills. REVIEW OF SYSTEMS: CONSTITUTIONAL: No fever, no chills. The patient does have generalized weakness and fatigue. EYES: Patient says her eyes are jaundiced. No pain, no discharge. CARDIOVASCULAR: No chest pain or short of breath. No leg swelling. ABDOMEN: Patient does have nausea, ( ) episode. No episode of vomiting. The patient did have diarrhea. GENITOURINARY: No dysuria, no hematuria. ENDOCRINE: No heat or cold intolerance. MUSCULOSKELETAL: Patient does have joint stiffness. No swelling or deformity or joint pain. PSYCHIATRIC: Negative. ENDOCRINE: Negative. MUSCULOSKELETAL: Negative except the above. All other 14-point review of systems negative except the above. PAST MEDICAL HISTORY: Lupus, Sjogren's syndrome, Raynaud's phenomenon, liver toxicity, chronic pancreatitis, fatty liver, history of thrush due to steroids, anemia, pleurisy, history of DVT, fibromyalgia, GERD, rheumatoid arthritis and hypothyroidism. PAST SURGICAL HISTORY: Appendectomy, cholecystectomy, ear surgery, hysterectomy , tonsillectomy, abscesses after ruptured appendectomy, benign tumor removed from the neck and mouth, surgery for hiatal hernia, plastic surgery on lower lip , titanium screw inserted in mouth, Mediport placement. PSYCHOSOCIAL HISTORY: Anxiety and depression. SOCIAL HISTORY: Current everyday smoker. Occasional alcohol use. Denied any drugs or IVDU. FAMILY HISTORY: History of lupus in the family. Denied any hypertension, diabetes mellitus, or premature heart disease in the family. Home medications include: 1. Biotin. 2. Benlysta infusion q.28 days. 3. Vitamin D3. 4. [place] 10. 5. Methylprednisolone. 6. Xanax. 7. Hydroxychloroquine. 8. Levothyroxine. 9. Omeprazole. 10. Zofran. 11. Fentanyl patch. ALLERGIES: PENICILLIN and LEFLUNOMIDE from [facility]. PHYSICAL EXAMINATION: A 31-year-old female lying in bed, awake, alert, oriented x3. Appears to be in mild distress due to pain. VITALS: Blood pressure is 140/81, pulse is 51, respiration 15, temperature afebrile, pulse ox 100% on room air. HEENT: Atraumatic, normocephalic. NECK: Supple. No JVD. CVS EXAM: S1 and S2 heard. No murmurs. No gallops. LUNGS: Bilateral air entry is present. Abdomen is soft. Mild epigastric tenderness. No guarding, no rigidity. Bowel sounds are present. CORE BAKER: Awake, alert, oriented x3. No focal deficits. EXTREMITIES: No edema. Pulses are palpable bilaterally. No clubbing or cyanosis. PSYCHIATRIC: Cooperative. LABORATORY DATA: WBC 8.7, hemoglobin 13.8, platelets 234. INR 1.1. Sodium 142, potassium 3.7, chloride 106, BUN 9, creatinine 0.69. Troponin negative. Liver enzymes are not elevated. Bilirubin is 0.6. Amylase 119 and lipase 215. UA is cloudy with squamous epithelial cells. CT of the abdomen and pelvis postop changes involving the right ovarian cyst correlate to exclude colitis, enteritis , hepatomegaly with probably hepatic steatosis. Chest x-ray, no focal infiltrate , right-sided chest port in place. EKG normal sinus rhythm. IMPRESSION: 1. Nausea, vomiting, diarrhea and abdominal pain due to colitis, possibly infectious, acute. 2. History of lupus, currently on Benlysta infusion q.28 days. 3. Sjogren's syndrome. 4. Raynaud's phenomenon. 5. Rheumatoid arthritis. 6 Hiatal hernia. 7. Gastroesophageal reflux disease. 8. History of deep venous thrombosis. 9. Hepatic steatosis. 10. Hypothyroidism. 11. Anxiety and depression. 12. Nicotine addiction. DISCUSSION AND PLAN: The patient will be continued on antibiotics in the form of levofloxacin and Flagyl and IV hydration with normal saline at 100 mL per hour. Continue with the symptomatic management for nausea and vomiting. Continue with Protonix and pain management with [place] 10. Follow up closely. Patient will be continue don home medications including Plaquenil, methylprednisolone and levothyroxine and followup closely. Will start on clear liquids and advance as tolerated. Further recommendations based on the clinical course. Prognosis guarded. MTDD
== END 2017-01-27 14:19 | disposition home or self-care (01) ==
LOC: EC 11:49 → INTOOBSV 16:39 → 4MS4W 16:39
PROVIDERS: ADMIT Internal Medicine; ATTEND Internal Medicine
DX: R10.9 Unspecified abdominal pain (principal); Z86.718 Personal history of other venous thrombosis and embolism; M79.7 Fibromyalgia; M32.9 Systemic lupus erythematosus, unspecified; E03.9 Hypothyroidism, unspecified; R19.7 Diarrhea, unspecified; R00.1 Bradycardia, unspecified; K21.9 Gastro-esophageal reflux disease without esophagitis; M06.9 Rheumatoid arthritis, unspecified; I73.00 Raynaud's syndrome without gangrene; R11.2 Nausea with vomiting, unspecified; M35.00 Sjogren syndrome, unspecified; K44.9 Diaphragmatic hernia without obstruction or gangrene; K76.0 Fatty (change of) liver, not elsewhere classified; F32.9 Major depressive disorder, single episode, unspecified; F41.9 Anxiety disorder, unspecified; Z88.0 Allergy status to penicillin; Z88.8 Allergy status to other drugs, medicaments and biological substances; Z79.899 Other long term (current) drug therapy; Z79.52 Long term (current) use of systemic steroids; Z79.891 Long term (current) use of opiate analgesic; F17.200 Nicotine dependence, unspecified, uncomplicated
CPT/HCPCS: 96376 ×2; 96365; 96367; 96372 ×2; 96375 ×2; 96361; 99285; 36415; 93005 ×2; 93306; 80053; 82150; 82550; 82553; 83690; 84443; 84484; 85025; 85610; 85730 ×2; 81001; 81025; 71020; 74177; G0378 ×2; J7509; J2270 ×2; J0500; J1644; J2405; J1956; Q9967; J1642; C9113

== ENCOUNTER 2018-07-31 22:04 | Observation (INO) | payer BC, OTHER ==
--- NOTE | 2018-07-31 22:38 | ED ---
Chest Pain HPI - General Chief Complaint: Chest Pain Stated Complaint: chest pain/vertigo Time Seen by Provider: 07/31/18 22:19 Source: patient, RN notes reviewed, old records reviewed Mode of arrival: ambulatory Limitations: no limitations - History of Present Illness Initial Comments: This is a 32-year-old female the ER for evaluation of multiple complaints. Patient has a significant and calm. Medical history rising from lupus with multiple comorbidities. Patient states she has persistent vertigo with multiple complaints. And lasting on and off for months. Decreased appetite persistent nausea vomiting abdominal pain chest pain. Patient denies fevers no significant recent change in medications, she has been on 4 different antibiotics as of recent for evaluation of ear infections. Otherwise patient's coming today for persistent nausea vomiting and headache with vertigo. MD Complaint: chest pain, other (as above) Onset: during rest, during exertion, after eating, awoke with symptoms Pain Location: substernal, epigastric Pain Radiation: none Severity: moderate Severity scale (1-10): 5 Quality: tightness, aching, heaviness, dull Consistency: constant Improves With: nothing Worsens With: nothing Context: recent illness (otitis) Anginal Symptoms: nausea, vomiting Other Symptoms: palpitations Treatments Prior to Arrival: none - Related Data Home Medications Medication Instructions Recorded Confirmed Biotin 5 mg PO DAILY 12/11/13 07/31/18 Benlysta Infusion 1 dose IV Q7D 06/18/15 07/31/18 Cholecalciferol [Vitamin D3] 5,000 unit PO DAILY 06/18/15 07/31/18 methylPREDNISolone 24 mg PO DAILY 06/30/15 07/31/18 Omeprazole [PriLOSEC] 20 mg PO AC-BRKFST 09/01/16 07/31/18 Clindamycin HCl 300 mg PO Q8H 07/31/18 07/31/18 DULoxetine HCL [Cymbalta] 120 mg PO DAILY 07/31/18 07/31/18 Dextroamphetamine/Amphetamine 5 mg PO BID 07/31/18 07/31/18 [Adderall] Levothyroxine Sodium [Synthroid] 112 mcg PO DAILY 07/31/18 07/31/18 Pramipexole Di-HCl [Mirapex] 0.125 - 0.25 mg PO HS 07/31/18 07/31/18 Previous Rx's Medication Instructions Recorded Ondansetron Odt [Zofran Odt] 4 mg PO Q8HR PRN #10 tab 01/26/17 Allergies Allergy/AdvReac Type Severity Reaction Status Date / Time Penicillins Allergy Rash/Hives Verified 07/31/18 22:53 leflunomide [From Arava] AdvReac liver Verified 07/31/18 22:53 toxicity Review of Systems ROS Statement: Those systems with pertinent positive or pertinent negative responses have been documented in the HPI. ROS Other: All systems not noted in ROS Statement are negative. EKG Findings - EKG Comments: EKG Findings:: EKG shows sinus rhythm rate of 76, GA 122, QRS 84, QTC 429 Past Medical History Past Medical History: Deep Vein Thrombosis (DVT), Fibromyalgia, GERD/Reflux, Liver Disease, Rheumatoid Arthritis (RA), Thyroid Disorder Additional Past Medical History / Comment(s): SJOGREN'S, LUPUS, RAYNAUDS, LIVER TOXICITY, chronic pancreatis, fatty liver, hx thrush, hx anemia, pleurisy, "protein in kidneys" History of Any Multi-Drug Resistant Organisms: None Reported Past Surgical History: Appendectomy, Cholecystectomy, Ear Surgery, Hernia Repair , Hysterectomy, Tonsillectomy Additional Past Surgical History / Comment(s): ABSCESS after RUPTURED APPENDECTOMY, BENIGN TUMORS REMOVED FROM NECK AND MOUTH, sugery for hiatal hernia, plastic surgery on lower lip, TITANIUM screw insterted in mouth, Mediport 2013; sliding hernia surgery with mesh Past Anesthesia/Blood Transfusion Reactions: Postoperative Nausea & Vomiting ( PONV) Additional Past Anesthesia/Blood Transfusion Reaction / Comment(s): States heart rate very sensitive to anesthesia r/t lupus, occ drop in BP, "I USUALLY NEED STEROIDS TO COME OUT OF SURGERY" Past Psychological History: Anxiety, Depression Smoking Status: Current every day smoker Past Alcohol Use History: Rare Past Drug Use History: None Reported - Past Family History Mother Family Medical History: No Reported History General Exam Limitations: no limitations General appearance: alert, anxious, in distress Head exam: Present: atraumatic, normocephalic, normal inspection Eye exam: Present: normal appearance, PERRL, EOMI. Absent: scleral icterus, conjunctival injection, nystagmus, periorbital swelling ENT exam: Present: normal exam, mucous membranes moist Neck exam: Present: normal inspection. Absent: tenderness, meningismus, lymphadenopathy Respiratory exam: Present: normal lung sounds bilaterally. Absent: respiratory distress, wheezes, rales, rhonchi, stridor Cardiovascular Exam: Present: regular rate, normal rhythm, normal heart sounds. Absent: systolic murmur, diastolic murmur, rubs, gallop, clicks GI/Abdominal exam: Present: soft, normal bowel sounds. Absent: distended, tenderness, guarding, rebound, rigid Extremities exam: Present: normal inspection, full ROM, normal capillary refill. Absent: tenderness, pedal edema, joint swelling, calf tenderness Back exam: Present: normal inspection Neurological exam: Present: alert, oriented X3, CN II-XII intact Psychiatric exam: Present: normal affect, normal mood Skin exam: Present: warm, dry, intact, normal color. Absent: rash Course Vital Signs 07/31/18 07/31/18 08/01/18 22:13 23:49 00:51 Temperature 98.0 F Pulse Rate 104 H 78 82 Respiratory 22 18 18 Rate Blood Pressure 142/90 126/90 124/83 O2 Sat by Pulse 99 98 98 Oximetry - Reevaluation(s) Reevaluation #1: Medical record Is reviewed Patient has no improvement in symptoms Reevaluation #2: Studies CT brain chest x-ray are negative for acute disease - Consultations Consultation #1: Spoke with Dr. Sarabia regarding admission, he is agreeable Chest Pain MDM - MDM 32 female the ER with intractable vertigo chest pain body pain abdominal pain nausea vomiting. Patient will be admitted for continued symptom control hydration and nothing by mouth status Disposition Clinical Impression: Systemic lupus erythematosus, Atypical chest pain, Acute pancreatitis, Pleurisy , Otalgia, right ear Disposition: ADMITTED IP TO THIS HOSP Condition: Fair Is patient prescribed a controlled substance at d/c from ED?: No
[2018-07-31] MEDS ORDERED: ACETAMINOPHEN IV (For NPO) 1,000 MG in EMPTY BAG 1 BAG IVPB STA (23:17)
[2018-07-31] MEDS ORDERED: diphenhydrAMINE 50 MG/ML 1 ML VIAL IVP STA (23:17)
[2018-07-31] MEDS ORDERED: KETOROLAC 30 MG/ML 1 ML VIAL IVP STA (23:17)
[2018-07-31] MEDS ORDERED: SODIUM CHLORIDE 0.9% 1,000 ML IV STA ×2 (23:17)
[2018-07-31] MEDS ORDERED: SODIUM CHLORIDE 0.9% 500 ML 500 ML IV STA (23:17)
[2018-07-31] MEDS ORDERED: ONDANSETRON 4 MG/2 ML VIAL IVP STA (23:17)
[2018-07-31] MEDS ORDERED: HYDROmorphone 1 MG/ML 1 ML SYRINGE IVP STA (23:17)
[2018-08-01 00:03] LABS: Basophils % (A) 1 %; Eosinophils # (A) 0.2 k/uL (0-0.7); Eosinophils % (A) 3 %; HCT 41.9 % (34.0-46.0); HGB 14.1 gm/dL (11.4-16.0); Lymphocytes # (A) 1.5 k/uL (1.0-4.8); Lymphocytes % (A) 20 %; MCH 31.2 pg (25.0-35.0); MCHC 33.7 g/dL (31.0-37.0); MCV 92.7 fL (80.0-100.0); Mean Platelet Volume 6.3; Monocytes # (A) 0.5 k/uL (0-1.0); Monocytes % (A) 7 %; Neutrophils # (A) 4.8 k/uL (1.3-7.7); Neutrophils % (A) 67 %; Platelet Count 287 k/uL (150-450); RBC 4.52 m/uL (3.80-5.40); RDW 12.1 % (11.5-15.5); WBC 7.2 k/uL (3.8-10.6)
[2018-08-01 00:15] LABS: ALT 15 U/L (9-52); AST 24 U/L (14-36); Albumin 4.3 g/dL (3.5-5.0); Alkaline Phosphatase 43 U/L (38-126); Anion Gap 8 mmol/L; Blood Urea Nitrogen 17 mg/dL (7-17); Calcium 9.5 mg/dL (8.4-10.2); Carbon Dioxide 27 mmol/L (22-30); Chloride 103 mmol/L (98-107); Glucose 91 mg/dL (74-99); Lipase 543 U/L (23-300); Magnesium 1.9 mg/dL (1.6-2.3); Phosphorus 3.9 mg/dL (2.5-4.5); Potassium 4.5 mmol/L (3.5-5.1); Sodium 138 mmol/L (137-145); Total Bilirubin 0.2 mg/dL (0.2-1.3); Total Protein 8.2 g/dL (6.3-8.2)
[2018-08-01 00:23] LABS: INR 0.9 (<1.2); Prothrombin Time 9.8 sec (9.0-12.0)
[2018-08-01 00:30] LABS: Creatine Kinase 69 U/L (30-135)
--- NOTE | 2018-08-01 00:37 | XR ---
EXAMINATION TYPE: XR chest 2V DATE OF EXAM: 08/01/2018 COMPARISON: 01/26/2017 HISTORY: Chest pain TECHNIQUE: Frontal and lateral views of the chest are obtained. FINDINGS: Heart and mediastinum are normal. Lungs are clear. Diaphragm is normal. Bony thorax is nor mal. IMPRESSION: Normal chest. No change.
--- NOTE | 2018-08-01 00:40 | CT ---
EXAMINATION TYPE: CT brain wo con DATE OF EXAM: 08/01/2018 COMPARISON: None HISTORY: dizziness CT DLP: 1087.40 mGycm. Automated Exposure Control for Dose Reduction was Utilized. TECHNIQUE: CT scan of the head is performed without contrast. FINDINGS: Ventricles and sulci appear normal. There is no mass effect nor midline shift. There is no sign of intracranial hemorrhage. Calvarium is intact. IMPRESSION: Normal head CT scan.
[2018-08-01 00:41] LABS: Partial Thromboplastin Time 21.9 sec (22.0-30.0)
[2018-08-01 00:42] LABS: Creatine Kinase MB 1.5 ng/mL (0.0-2.4); Troponin I <0.012 ng/mL (0.000-0.034)
--- NOTE | 2018-08-01 00:42 | CT ---
EXAMINATION TYPE: CT iac wo con DATE OF EXAM: 08/01/2018 COMPARISON: No HISTORY: ear pain CT DLP: 183.80mGycm Automated exposure control for dose reduction was used. FINDINGS: The external auditory canals appear normal. There is fairly normal aeration of the mastoid air cells. There is normal aeration of the epitympanic recess bilaterally. There is no evidence of a posterior fossa mass. Internal auditory canals appear normal. I see no bony destructive process. Semi circular canals and cochlea appear normal. IMPRESSION: Negative CT scan of the temporal bones.
[2018-08-01] MEDS ORDERED: LORazepam 2 MG/ML INJ IV STA (00:47)
[2018-08-01 02:19] VITALS: BMI 21.5
[2018-08-01] MEDS: HYDROmorphone 1 MG/ML 1 ML SYRINGE IVP PRN ×5 (07:04→22:34)
[2018-08-01] MEDS: ONDANSETRON 4 MG/2 ML VIAL IVP PRN ×2 (07:06→14:54)
[2018-08-01] MEDS: ENOXAPARIN 40 MG/0.4 ML SYRINGE SQ SCH (07:07)
[2018-08-01 11:42] LABS: Basophils # (A) 0.1 k/uL (0-0.2); Basophils % (A) 1 %; Eosinophils # (A) 0.3 k/uL (0-0.7); Eosinophils % (A) 4 %; HCT 38.4 % (34.0-46.0); HGB 12.6 gm/dL (11.4-16.0); Lymphocytes # (A) 2.2 k/uL (1.0-4.8); Lymphocytes % (A) 36 %; MCH 31.7 pg (25.0-35.0); MCHC 32.9 g/dL (31.0-37.0); MCV 96.2 fL (80.0-100.0); Mean Platelet Volume 6.1; Monocytes # (A) 0.5 k/uL (0-1.0); Monocytes % (A) 7 %; Neutrophils # (A) 3.1 k/uL (1.3-7.7); Neutrophils % (A) 50 %; Platelet Count 253 k/uL (150-450); RBC 3.99 m/uL (3.80-5.40); RDW 12.3 % (11.5-15.5); WBC 6.2 k/uL (3.8-10.6)
[2018-08-01 12:00] LABS: ALT 94 U/L (9-52); AST 166 U/L (14-36); Albumin 3.2 g/dL (3.5-5.0); Alkaline Phosphatase 38 U/L (38-126); Anion Gap 5 mmol/L; Blood Urea Nitrogen 17 mg/dL (7-17); Calcium 8.7 mg/dL (8.4-10.2); Carbon Dioxide 23 mmol/L (22-30); Chloride 112 mmol/L (98-107); Glucose 83 mg/dL (74-99); Lipase 525 U/L (23-300); Potassium 4.5 mmol/L (3.5-5.1); Sodium 140 mmol/L (137-145); Total Bilirubin 0.3 mg/dL (0.2-1.3); Total Protein 6.7 g/dL (6.3-8.2)
[2018-08-01 14:24] LABS: Appearance,Urine Clear (Clear); Bilirubin,Urine Negative (Negative); Blood,Urine Negative (Negative); Color,Urine Yellow; Glucose,Urine (UA) Negative (Negative); Ketones,Urine Negative (Negative); Leukocyte Esterase,Urine Negative (Negative); Nitrite,Urine Negative (Negative); PH, Urine 6.5 (5.0-8.0); Protein,Urine Negative (Negative); Specific Gravity,Urine 1.019 (1.001-1.035); Urobilinogen,Urine <2.0 mg/dL (<2.0)
[2018-08-01] MEDS: IOPAMIDOL-300 CONTRAST 30 ML VIAL (ORAL USE) PO PRN ×2 (15:32→16:45)
--- NOTE | 2018-08-01 17:41 | CT ---
EXAMINATION TYPE: CT abdomen pelvis wo con DATE OF EXAM: 08/01/2018 COMPARISON: 01/26/2017 HISTORY: Abdominal pain CT DLP: 368.4 mGycm Automated exposure control for dose reduction was used. TECHNIQUE: Helical acquisition of images was performed from the lung bases through the pelvis. There is oral contrast. FINDINGS: Lung bases are clear of infiltrate. There is no pleural effusion. Heart size is normal. There is smal l hiatal hernia. The remainder of the stomach appears normal. There are clips from cholecystectomy. Liver appears normal. Bile ducts are not dilated. Spleen appear s normal. There is no pancreatic mass. There is no evidence of free air. There is no adrenal mass. Kidneys have normal size and contour. There is 2 mm calculus lower pole rig ht kidney. There is no hydronephrosis. Ureters are not dilated. There are a few abdominal para-aortic lymph nodes that measure up to 1 cm. The bladder distends smoothly. There is no inguinal hernia. The re is no free fluid in the pelvis. There is no evidence of a bowel obstruction. I see no dilated loop s. There is no intestinal wall thickening. There are small umbilical hernia that contains fat. There is no mesenteric edema. There is no mesenteric adenopathy. Appendix is not definitely seen. There is no sign of appendicitis. The bony structures are intact. There is no compression fracture. Bony pelvi s is intact. IMPRESSION: NEGATIVE CT SCAN ABDOMEN AND PELVIS. No change compared to old exam.
[2018-08-01] MEDS ORDERED: TEMAZEPAM 15 MG CAP PO PRN (18:51)
[2018-08-01] MEDS: SODIUM CHLORIDE 0.9% 1,000 ML IV SCH (19:36)
--- NOTE | 2018-08-01 20:03 | HP ---
HISTORY AND PHYSICAL DATE OF SERVICE: 08/01/2018 CHIEF COMPLAINT: Abdominal pain. HISTORY OF PRESENT ILLNESS: This 32-year-old woman with a past medical history of multiple medical problems, including history of systemic lupus erythematosus, history of DVT, history of fibromyalgia, history of GERD, history of liver disease, rheumatoid arthritis, history of Sjogren's, history of Raynaud's, history of liver toxicity, recurrent pancreatitis, history of pleurisy, being followed by Dr. Saran Perez in the outpatient setting, was admitted with complaints of abdominal pain. The patient came to [facility]. Pain was felt in the anterior part of the abdomen. Amylase was increased and the patient was diagnosed with acute pancreatitis. Patient was admitted for further evaluation and treatment. There is no history of any fever or rigors. No history of headache, loss of consciousness, seizures at this time. PAST MEDICAL HISTORY: 1. History of DVT. 2. History of fibromyalgia. 3. GERD. 4. History of rheumatoid arthritis. 5. Hypothyroidism. 6. Sjogren syndrome. 7. Raynaud's. 8. Liver toxicity. 9. Chronic pancreatitis. 10.Appendectomy. 11.Cholecystectomy. HOME MEDICATIONS: 1. Methylprednisolone 24 mg p.o. daily. 2. Mirapex 0.125 mg p.o. at bedtime. 3. Zofran 4 mg q.8 p.r.n. 4. Prilosec 20 mg before breakfast. 5. Synthroid 112 mcg p.o. daily. 6. Adderall 5 mg p.o. b.i.d. 7. Cymbalta 120 mg p.o. daily. 8. Clindamycin 300 mg p.o. q.8. 9. Vitamin D3 5000 daily. 10.Biotin 5 mg p.o. daily. 11.Benlysta 1 dose q.7 days. ALLERGIES: 1. PENICILLIN. 2. ARAVA. FAMILY HISTORY: No history of heart disease or strokes in the family. SOCIAL HISTORY: History of current continued smoking. No history of alcohol intake. REVIEW OF SYSTEMS: ENT: No diminished hearing. No diminished vision. CARDIOVASCULAR SYSTEM: No angina, palpitations. RESPIRATORY SYSTEM: As mentioned earlier. GI: No nausea, vomiting. : No dysuria or retention. NERVOUS SYSTEM: No numbness, weakness. ALLERGY/IMMUNOLOGY: No asthma, hayfever. MUSCULOSKELETAL: As mentioned earlier. HEMATOLOGY/ONCOLOGY: No history of anemia. ENDOCRINE: No history of diabetes. Hypothyroidism. CONSTITUTIONAL: As mentioned earlier. DERMATOLOGY: Negative. RHEUMATOLOGY: As mentioned earlier. PSYCHIATRY: As mentioned earlier. PHYSICAL EXAMINATION: Patient is alert, oriented x3. Pulse 78, blood pressure 109/68, respiration 14, temperature 98.2, pulse ox 98% on room air. HEENT: Conjunctivae normal. Oral mucosa moist. NECK: No jugular venous distention. No carotid bruit. No lymph node enlargement. CARDIOVASCULAR SYSTEM: S1, S2 muffled. RESPIRATORY SYSTEM: Breath sounds diminished at the bases. A few scattered rhonchi and crackles. ABDOMEN: Soft. Mild diffuse tenderness in the epigastrium. No guarding. No rigidity. No mass palpable. LEGS: No edema. No swelling. NERVOUS SYSTEM: Higher functions as mentioned earlier. Moves all 4 limbs. No focal motor or sensory deficit. LYMPHATICS: No lymph node palpable in neck, axillae or groin. SKIN: No ulcer, rash, bleeding. LABS: Labs at this time show WBC of 6.2, hemoglobin 12.6, sodium 140, potassium 4.5. Otherwise, AST is 166, ALT is 94, lipase is 525. ASSESSMENT: 1. Abdominal pain with possible acute severe pancreatitis. 2. Systemic lupus erythematosus. 3. History of pleurisy. 4. Otalgia, right ear. 5. History of deep vein thrombosis. 6. History of fibromyalgia. 7. History of liver disease. 8. History of rheumatoid arthritis. 9. History of Sjogren syndrome. 10.Raynaud's syndrome. 11.Liver toxicity. 12.History of chronic pancreatitis. 13.History of cholecystectomy. 14.History of ruptured appendectomy. 15.History of anxiety, depression. 16.History of nicotine dependence. RECOMMENDATIONS AND DISCUSSION: In this 32-year-old woman who presented with multiple complex medical issues., we will monitor the patient closely, continue the current management, continue symptomatic treatment. Otherwise, I would recommend n.p.o. diet and symptomatic treatment. Repeat labs. Otherwise, ENT. The patient also had complaints of earache. ENT has been consulted. Would also recommend close monitoring. Gastroenterology will be also consulted for abdominal pain and pancreatitis. Guarded prognosis. Further recommendations to follow. A copy of this dictation is being forwarded to Dr. Saran Perez, who is the primary physician. See orders for further details. Medication reconciliation performed. DVT prophylaxis. The rest of the medications as above. MMODL / IJN: [id number] /
[2018-08-01] MEDS: LORazepam 2 MG/ML INJ IV PRN (20:24)
[2018-08-01] MEDS: PANTOPRAZOLE 40 MG/10 ML VIAL IVP SCH (20:24)
[2018-08-01] MEDS ORDERED: PRAMIPEXOLE 0.125 MG TAB PO PRN (21:00)
[2018-08-01] MEDS: NON-FORMULARY DRUG (Dextroamphetamine/Amphetamine [Adderall] 5 MG) PO SCH (21:35)
[2018-08-02] MEDS: ONDANSETRON 4 MG/2 ML VIAL IVP PRN ×3 (01:12→12:18)
[2018-08-02] MEDS: SODIUM CHLORIDE 0.9% 1,000 ML IV SCH (01:13)
[2018-08-02] MEDS: HYDROmorphone 1 MG/ML 1 ML SYRINGE IVP PRN ×5 (01:35→19:20)
[2018-08-02] MEDS: LEVOTHYROXINE 112 MCG TAB PO SCH (05:42)
[2018-08-02] MEDS: DULoxetine HCL 60 MG CAPSULE.DR PO SCH (07:11)
[2018-08-02] MEDS: CHOLECALCIFEROL 1,000 UNIT TAB PO SCH (07:11)
[2018-08-02] MEDS: HYDROcodone/APAP 5-325MG 1 EACH TAB PO PRN ×3 (07:11→17:24)
[2018-08-02] MEDS: PANTOPRAZOLE 40 MG/10 ML VIAL IVP SCH ×2 (07:12→20:55)
[2018-08-02] MEDS: ENOXAPARIN 40 MG/0.4 ML SYRINGE SQ SCH (07:13)
[2018-08-02] MEDS ORDERED: NON-FORMULARY DRUG (Omeprazole 20 MG) PO SCH (07:30)
[2018-08-02] MEDS: LORazepam 2 MG/ML INJ IV PRN ×2 (08:24→20:55)
[2018-08-02] MEDS ORDERED: NON-FORMULARY DRUG (Biotin [Biotin] 5 MG) PO SCH (09:00)
[2018-08-02 09:13] LABS: Basophils % (A) 1 %; Eosinophils # (A) 0.3 k/uL (0-0.7); Eosinophils % (A) 6 %; HCT 37.7 % (34.0-46.0); HGB 12.1 gm/dL (11.4-16.0); Lymphocytes # (A) 1.8 k/uL (1.0-4.8); Lymphocytes % (A) 33 %; MCH 30.8 pg (25.0-35.0); MCV 96.1 fL (80.0-100.0); Mean Platelet Volume 6.2; Monocytes # (A) 0.4 k/uL (0-1.0); Monocytes % (A) 7 %; Neutrophils # (A) 2.6 k/uL (1.3-7.7); Neutrophils % (A) 49 %; Platelet Count 272 k/uL (150-450); RBC 3.92 m/uL (3.80-5.40); RDW 12.2 % (11.5-15.5); WBC 5.3 k/uL (3.8-10.6)
[2018-08-02 09:29] LABS: ALT 91 U/L (9-52); AST 91 U/L (14-36); Albumin 3.4 g/dL (3.5-5.0); Alkaline Phosphatase 50 U/L (38-126); Amylase 127 U/L (30-110); Anion Gap 4 mmol/L; Blood Urea Nitrogen 13 mg/dL (7-17); Calcium 8.4 mg/dL (8.4-10.2); Carbon Dioxide 30 mmol/L (22-30); Chloride 106 mmol/L (98-107); Cholesterol 176 mg/dL (<200); Glucose 79 mg/dL (74-99); HDL Cholesterol 47 mg/dL (40-60); LDL Cholesterol,Calculated 86 mg/dL (0-99); Lipase 430 U/L (23-300); Potassium 4.3 mmol/L (3.5-5.1); Sodium 140 mmol/L (137-145); Total Bilirubin 0.3 mg/dL (0.2-1.3); Total Protein 6.6 g/dL (6.3-8.2); Triglycerides 216 mg/dL (<150)
[2018-08-02] MEDS: NON-FORMULARY DRUG (Dextroamphetamine/Amphetamine [Adderall] 5 MG) PO SCH ×2 (10:41→23:50)
[2018-08-02] MEDS: methylPREDNISolone 4 MG TAB PO SCH (11:47)
--- NOTE | 2018-08-02 13:32 | P.CONS ---
History of Present Illness - Reason for Consult Consult date: 08/02/18 Pancreatitis Requesting physician: Jeremiah Sarabia - Chief Complaint Abdominal pain - History of Present Illness 32-year-old female with a past medical history of lupus, DVT, fibromyalgia, GERD , Bubba fundoplication, hernia repairs, rheumatoid arthritis, Sjogren's, Reynauds, pancreatitis admitted with acute abdominal pain nausea vomiting. White count 5.3-7.2. Hemoglobin 12.1-14.1. Lipase 4:30-543. Amylase 127. LFTs within normal limits on admission increased AST 166. ALT 94. Presently AST ALT are 91. Total bilirubin alkaline phosphatase within normal limits. Triglycerides 216. Afebrile. Denies hematemesis hematochezia melena. Patient states she had 2 other episodes of pancreatitis in the past. Influenza not detected. CT abdomen and pelvis negative. Liver appeared normal. Bile ducts not dilated. No pancreatic mass. Denies medication changes. No history of alcohol. Review of Systems Constitutional: Denies fever, chills, sweats, weight gain, or loss. HEENT: Negative for migraines, blurred vision or loss, earaches, drainage, tinnitus, oral mucosal lesions, dysphagia, or odynophagia. CARDIAC: Negative for chest pain, arrhythmias, or palpitation. RESPIRATORY: Negative for shortness of breath, hemoptysis, cough, or sputum production. GI: See HPI for pertinent findings. : Negative for hematuria, urgency, frequency, polyuria, or dysuria. GYNc: Denies possibility of . Negative vaginal discharge. MUSCULOSKELETAL: Negative for muscle aches, swelling, arthritis, and arthralgias. NEUROLOGIC: Negative for stroke or TIA. ENDOCRINE: Negative for thyroid problems. SKIN: Negative for rash or itching. PSYCHIATRIC: Negative history for depression and anxiety Past Medical History Past Medical History: Deep Vein Thrombosis (DVT), Fibromyalgia, GERD/Reflux, Liver Disease, Rheumatoid Arthritis (RA), Thyroid Disorder Additional Past Medical History / Comment(s): SJOGREN'S, LUPUS, RAYNAUDS, LIVER TOXICITY, chronic pancreatis, fatty liver, hx thrush, hx anemia, pleurisy, "protein in kidneys" History of Any Multi-Drug Resistant Organisms: None Reported Past Surgical History: Appendectomy, Cholecystectomy, Ear Surgery, Hernia Repair , Hysterectomy, Tonsillectomy Additional Past Surgical History / Comment(s): ABSCESS after RUPTURED APPENDECTOMY, BENIGN TUMORS REMOVED FROM NECK AND MOUTH, sugery for hiatal hernia, plastic surgery on lower lip, TITANIUM screw insterted in mouth, Mediport 2013; sliding hernia surgery with mesh Past Anesthesia/Blood Transfusion Reactions: Postoperative Nausea & Vomiting ( PONV) Additional Past Anesthesia/Blood Transfusion Reaction / Comm: States heart rate very sensitive to anesthesia r/t lupus, occ drop in BP, "I USUALLY NEED STEROIDS TO COME OUT OF SURGERY" Past Psychological History: Anxiety, Depression Smoking Status: Current every day smoker Past Alcohol Use History: Rare Past Drug Use History: None Reported - Past Family History Mother Family Medical History: No Reported History Medications and Allergies Home Medications Medication Instructions Recorded Confirmed Type Biotin 5 mg PO DAILY 12/11/13 07/31/18 History Benlysta Infusion 1 dose IV Q7D 06/18/15 07/31/18 History Cholecalciferol [Vitamin D3] 5,000 unit PO DAILY 06/18/15 07/31/18 History methylPREDNISolone 24 mg PO DAILY 06/30/15 07/31/18 History Omeprazole [PriLOSEC] 20 mg PO AC-BRKFST 09/01/16 07/31/18 History Ondansetron Odt [Zofran Odt] 4 mg PO Q8HR PRN #10 tab 01/26/17 07/31/18 Rx Clindamycin HCl 300 mg PO Q8H 07/31/18 07/31/18 History DULoxetine HCL [Cymbalta] 120 mg PO DAILY 07/31/18 07/31/18 History Dextroamphetamine/Amphetamine 5 mg PO BID 07/31/18 07/31/18 History [Adderall] Levothyroxine Sodium [Synthroid] 112 mcg PO DAILY 07/31/18 07/31/18 History Pramipexole Di-HCl [Mirapex] 0.125 - 0.25 mg PO HS 07/31/18 07/31/18 History Allergies Allergy/AdvReac Type Severity Reaction Status Date / Time Penicillins Allergy Rash/Hives Verified 07/31/18 22:53 leflunomide [From Arava] AdvReac liver Verified 07/31/18 22:53 toxicity Physical Exam Vitals: Vital Signs Temp Pulse Resp BP Pulse Ox 08/02/18 07:00 98.9 F 58 L 12 154/74 96 08/02/18 00:43 98.3 F 75 16 110/69 97 08/01/18 19:51 97.4 F L 69 16 117/76 96 08/01/18 15:48 98 F 75 16 113/73 98 Intake and Output 08/01/18 08/02/18 08/02/18 22:59 06:59 14:59 Intake Total 525 Output Total 300 Balance -300 525 Intake: Intake, IV Titration 525 Amount Sodium Chloride 0.9% 1, 525 000 ml @ 75 mls/hr IV . [id number] [facility] Rx#:[id number] Output: Urine 300 Other: Voiding Method Toilet General appearance: The patient is alert, oriented, in no acute distress. HET: Head is normocephalic and atraumatic. Pupils are equal and reactive. Oropharynx is clear without lesions. Neck: Supple without lymphadenopathy. Trachea midline. Heart: S1 S2. Regular rate and rhythm. Lungs: No crackles or wheezes are heard. Abdomen: Soft, mild tenderness across mid upper abdomen with mild bloatedness with bowel sounds. No peritoneal signs. No palpable organomegaly or masses. Extremities: Normal skin color and turgor. No cyanosis, rash, ulceration, clubbing, or edema. Radial and pedal pulses are 2/4 bilaterally. Neurological: No focal deficits. Strength and sensation are grossly intact. Results CBC & Chem 7: 08/03/18 07:39 08/03/18 07:39 Labs: Abnormal Lab Results - Last 24 Hours (Table) 08/02/18 Range/Units 08:13 AST 91 H (14-36) U/L ALT 91 H (9-52) U/L Albumin 3.4 L (3.5-5.0) g/dL Triglycerides 216 H (<150) mg/dL Amylase 127 H (30-110) U/L Lipase 430 H (23-300) U/L Microbiology - Last 24 Hours (Table) 08/01/18 14:00 Urine Culture - Preliminary Urine,Voided CT scan - abdomen: report reviewed (Dr. Julien) Assessment and Plan (1) Abdominal pain Narrative/Plan: Acute abdominal pain nausea vomiting possible gastroenteritis with history of pancreatitis autoimmune disease, nonspecific elevation of amylase lipase CT abdomen and pelvis reported negative possible subacute pancreatitis. Etiology of pancreatitis unclear possible autoimmune possible idiopathic. Current Visit: Yes Status: Acute Code(s): R10.9 - UNSPECIFIED ABDOMINAL PAIN SNOMED Code(s): 03309565 (2) Elevated pancreatic enzyme Current Visit: Yes Status: Acute Code(s): R74.8 - ABNORMAL LEVELS OF OTHER SERUM ENZYMES SNOMED Code(s): 999445776 (3) History of autoimmune disease Current Visit: Yes Status: Acute Code(s): Z86.2 - PRSNL HISTORY OF DIS [facility] BLD[facility] Code(s): 786617976 Plan: 1. IV hydration symptomatic supportive measures. GI prophylaxis. ALFREDO with reflex. Subclass IgG 1-4. CBC CMP pancreatic enzymes in a.m. Will follow closely with you. Thank you for this kind referral and the opportunity to participate in the care of your patient. This consultation was discussed with Dr. Julien. The impression and plan of care have been directed as dictated.
[2018-08-02 19:50] VITALS: RESP 16
--- NOTE | 2018-08-02 23:55 | PN ---
PROGRESS NOTE DATE OF SERVICE: 08/02/2018 This 32-year-old woman who was admitted with severe abdominal pain, acute pancreatitis, is improving slightly. No chest pain. No palpitations. No fever. A CT scan of abdomen and pelvis was done which showed no acute changes. No chest pain. No palpitations. No fever. PHYSICAL EXAMINATION: Alert and oriented x3. Pulse is 75, blood pressure 129/77, respiration 12, temperature 97.2, pulse ox 97% on room air. HEENT: Conjunctivae normal. NECK: No jugular venous distention. CARDIOVASCULAR SYSTEM: S1, S2 muffled. RESPIRATORY SYSTEM: Breath sounds diminished at the bases. No rhonchi. No crackles. ABDOMEN: Soft. Mild diffuse tenderness in the upper abdomen. No guarding. No rigidity. No mass palpable. Bowel sounds present. LEGS: No edema. No swelling. NERVOUS SYSTEM: No focal deficit. LABS: AST is 91, ALT is 91. Otherwise, triglycerides are 216. Amylase is 127, lipase 430, which is improving. ASSESSMENT: 1. Severe abdominal pain with possible acute on chronic pancreatitis. 2. History of systemic lupus erythematosus. 3. Increased amylase, lipase. 4. History of pleurisy. 5. Otalgia, right ear. 6. History of deep vein thrombosis. 7. History of fibromyalgia. 8. History of liver disease. 9. History of rheumatoid arthritis. 10.History of Sjogren's. 11.History of Raynaud's syndrome. 12.History of liver toxicity. 13.History of chronic pancreatitis. 14.History of cholecystectomy. 15.History of ruptured appendix and appendectomy. 16.History of anxiety, depression. 17.History of nicotine dependence. RECOMMENDATIONS AND DISCUSSION: I recommend to continue current medication, continue with symptomatic treatment. Will advance diet. Continue the rest of the medications. Influenza is negative. Repeat labs in the morning. Guarded prognosis because of multiple complex medical issues. Further recommendations to follow. MMODL / IJN: [id number] /
[2018-08-03] MEDS: HYDROcodone/APAP 5-325MG 1 EACH TAB PO PRN ×2 (01:33→07:48)
[2018-08-03] MEDS: ONDANSETRON 4 MG/2 ML VIAL IVP PRN (05:17)
[2018-08-03] MEDS: HYDROmorphone 1 MG/ML 1 ML SYRINGE IVP PRN (05:17)
[2018-08-03 07:44] VITALS: PULSE 84
[2018-08-03] MEDS: ENOXAPARIN 40 MG/0.4 ML SYRINGE SQ SCH ×2 (07:47→07:50)
[2018-08-03] MEDS: LORazepam 2 MG/ML INJ IV PRN ×2 (07:47→17:13)
[2018-08-03] MEDS: CHOLECALCIFEROL 1,000 UNIT TAB PO SCH (07:48)
[2018-08-03] MEDS: PANTOPRAZOLE 40 MG/10 ML VIAL IVP SCH (07:48)
[2018-08-03] MEDS: DULoxetine HCL 60 MG CAPSULE.DR PO SCH (07:48)
[2018-08-03] MEDS: methylPREDNISolone 4 MG TAB PO SCH (07:49)
[2018-08-03] MEDS: LEVOTHYROXINE 112 MCG TAB PO SCH (07:49)
[2018-08-03 08:04] LABS: Basophils # (A) 0.1 k/uL (0-0.2); Basophils % (A) 1 %; Eosinophils # (A) 0.2 k/uL (0-0.7); Eosinophils % (A) 2 %; HCT 41.3 % (34.0-46.0); HGB 13.7 gm/dL (11.4-16.0); Lymphocytes # (A) 1.8 k/uL (1.0-4.8); Lymphocytes % (A) 22 %; MCH 31.5 pg (25.0-35.0); MCHC 33.1 g/dL (31.0-37.0); MCV 95.2 fL (80.0-100.0); Mean Platelet Volume 6.3; Monocytes # (A) 0.6 k/uL (0-1.0); Monocytes % (A) 7 %; Neutrophils # (A) 5.4 k/uL (1.3-7.7); Neutrophils % (A) 67 %; Platelet Count 268 k/uL (150-450); RBC 4.34 m/uL (3.80-5.40); RDW 12.3 % (11.5-15.5)
[2018-08-03 08:30] LABS: ALT 97 U/L (9-52); AST 64 U/L (14-36); Albumin 3.8 g/dL (3.5-5.0); Alkaline Phosphatase 50 U/L (38-126); Amylase 124 U/L (30-110); Anion Gap 8 mmol/L; Blood Urea Nitrogen 15 mg/dL (7-17); Calcium 8.9 mg/dL (8.4-10.2); Carbon Dioxide 26 mmol/L (22-30); Chloride 106 mmol/L (98-107); Glucose 87 mg/dL (74-99); Lipase 333 U/L (23-300); Potassium 3.8 mmol/L (3.5-5.1); Sodium 140 mmol/L (137-145); Total Bilirubin 0.5 mg/dL (0.2-1.3); Total Protein 7.6 g/dL (6.3-8.2)
[2018-08-03] MEDS ORDERED: PROCHLORPERAZINE SUPPOSITORY 25 MG SUPP RECTAL PRN (09:36)
--- NOTE | 2018-08-03 09:40 | P.PN ---
Subjective Progress Note Date: 08/03/18 Principal diagnosis: abdominal pain nausea vomiting Moderate nausea no emesis. Mild abdominal discomfort. No diarrhea. Pancreatic enzymes improved. Afebrile. Bloated. Objective - Vital Signs Vital signs: Vital Signs Temp 97.6 F 08/03/18 07:00 Pulse 84 08/03/18 07:00 Resp 16 08/03/18 07:00 BP 133/86 08/03/18 07:00 Pulse Ox 98 08/03/18 07:00 Intake & Output 08/02/18 08/03/18 08/03/18 18:59 06:59 18:59 Intake Total 2250 Balance 2250 Intake: Intake, IV Titration 1150 Amount Sodium Chloride 0.9% 1, 1150 000 ml @ 75 mls/hr IV . [id number] Rx#:[id number] Oral 1100 Other: Voiding Method Toilet Toilet # Voids 2 3 - Constitutional General appearance: Present: no acute distress - EENT Eyes: Present: normal appearance Ears: bilateral: normal - Neck Neck: Present: normal ROM - Respiratory Respiratory: bilateral: CTA - Cardiovascular Rhythm: regular Heart sounds: normal: S1, S2 - Gastrointestinal Gastrointestinal Comment(s): bloated normal BS. General gastrointestinal: Present: soft - Neurologic Neurologic: Present: CNII-XII intact - Psychiatric Psychiatric: Present: A&O x's 3 - Labs CBC & Chem 7: 08/03/18 07:39 08/03/18 07:39 Labs: Abnormal Lab Results - Last 24 Hours (Table) 08/02/18 08/03/18 Range/Units 08:13 07:39 AST 91 H 64 H (14-36) U/L ALT 91 H 97 H (9-52) U/L Albumin 3.4 L (3.5-5.0) g/dL Triglycerides 216 H (<150) mg/dL Amylase 127 H 124 H (30-110) U/L Lipase 430 H 333 H (23-300) U/L Microbiology - Last 24 Hours (Table) 08/01/18 14:00 Urine Culture - Final Urine,Voided 08/01/18 15:26 Blood Culture - Preliminary Blood No Growth after 24 hours Assessment and Plan (1) Abdominal pain Narrative/Plan: Acute abdominal pain nausea vomiting possible gastroenteritis with history of pancreatitis autoimmune disease, nonspecific elevation of amylase lipase CT abdomen and pelvis reported negative possible subacute pancreatitis. Etiology of possible pancreatitis unclear possible autoimmune possible idiopathic. Current Visit: Yes Status: Acute Code(s): R10.9 - UNSPECIFIED ABDOMINAL PAIN SNOMED Code(s): 77808776 (2) Elevated pancreatic enzyme Current Visit: Yes Status: Acute Code(s): R74.8 - ABNORMAL LEVELS OF OTHER SERUM ENZYMES SNOMED Code(s): 858322864 (3) History of autoimmune disease Current Visit: Yes Status: Acute Code(s): Z86.2 - PRSNL HISTORY OF DIS OF THE BLD/BLD-FORM ORG/IMMUN [facility] SNOMED Code(s): 715046614 (4) Nausea Narrative/Plan: possible ileus Current Visit: Yes Status: Acute Code(s): R11.0 - NAUSEA SNOMED Code(s): 443157889 Plan: 1. Antiemetics. IV hydration. PPI BID. Compazine suppository as needed. Ambulation encouraged. Light diet as tolerated. Assessment and plan of care discussed with Dr. Julien.
[2018-08-03] MEDS ORDERED: HYDROcodone/APAP 7.5-325MG 1 EACH TAB PO PRN (10:29)
[2018-08-03] MEDS: traMADol 50 MG TAB PO PRN ×2 (11:47→16:51)
[2018-08-03 14:45] VITALS: BP 118/72; TEMP 98.2
[2018-08-03] MEDS: NON-FORMULARY DRUG (Dextroamphetamine/Amphetamine [Adderall] 5 MG) PO SCH (14:59)
[2018-08-03] MEDS: SODIUM CHLORIDE 0.9% 1,000 ML IV SCH (15:13)
--- NOTE | 2018-08-03 22:41 | DS ---
DISCHARGE SUMMARY DATE OF SERVICE: 08/03/2018. FINAL DIAGNOSES: 1. Severe abdominal pain, possible acute on chronic pancreatitis. 2. History of SLE. 3. Increased amylase and lipase. 4. History of pleurisy. 5. Otalgia right ear. 6. History of deep vein thrombosis. 7. History of fibromyalgia. 8. Liver disease. 9. History of rheumatoid arthritis and Sjogren history. 10.History of Raynaud's phenomenon. 11.History of liver toxins. 12.History of chronic pancreatitis. 13.History of cholecystitis. 14.Ruptured appendix and appendectomy. 15.History of anxiety, depression. 16.History of nicotine dependence. DISCHARGE DISPOSITION: The patient is being discharged in stable condition with guarded prognosis. HISTORY OF PRESENT ILLNESS: This 32-year-old woman with a past medical history of multiple medical problems was admitted to the hospital with features of acute pancreatitis. Patient was seen by gastroenterology. Patient able to tolerate a diet. The patient improved significantly. Amylase and lipase improved to 124 and . The patient being discharged in stable condition. Guarded prognosis. On exam, vitals are stable. Cardiovascular: S1, S2. Abdomen soft. NERVOUS SYSTEM: No focal deficits. DISCHARGE MEDICATIONS AND ADVICE: 1. Diet is soft, cardiac diet. 2. Activity limited until followup. 3. Follow up with uniformer as recommended. 4. Follow up with Dr. Perez in 2-3 days with labs, CBC, CMP, amylase, lipase. MEDICATIONS: 1. Benlysta infusion as before. 2. Biotin 5 mg p.o. daily. 3. Vitamin D3 5000 daily. 4. Adderall 5 mg p.o. b.i.d. 5. Cymbalta 120 mg p.o. daily. 6. Synthroid 120 mcg. 7. Methylprednisone 25 mg p.o. daily. 8. Prilosec 20 mg a.c. breakfast. 9. Mirapex 0.12 mg/0.25 mg p.o. q.h.s. p.r.n. 10.Zofran p.r.n. Once again, the patient is being discharged in stable condition with guarded prognosis. MMODL / IJN: [id number] / MTDD
== END 2018-08-03 18:05 | disposition home or self-care (01) ==
LOC: EC 22:04 → 4SSUR 08-01 00:50
PROVIDERS: ADMIT Hospitalist; ATTEND Hospitalist
DX: R10.9 Unspecified abdominal pain (principal); K86.1 Other chronic pancreatitis; M32.9 Systemic lupus erythematosus, unspecified; R11.2 Nausea with vomiting, unspecified; R07.89 Other chest pain; H92.01 Otalgia, right ear; M79.7 Fibromyalgia; M06.9 Rheumatoid arthritis, unspecified; K76.0 Fatty (change of) liver, not elsewhere classified; K21.9 Gastro-esophageal reflux disease without esophagitis; M35.00 Sjogren syndrome, unspecified; R42 Dizziness and giddiness; I73.00 Raynaud's syndrome without gangrene; R00.2 Palpitations; E03.9 Hypothyroidism, unspecified; F17.200 Nicotine dependence, unspecified, uncomplicated; F41.9 Anxiety disorder, unspecified; F32.9 Major depressive disorder, single episode, unspecified; Z79.890 Hormone replacement therapy; Z79.899 Other long term (current) drug therapy; Z88.0 Allergy status to penicillin; Z88.8 Allergy status to other drugs, medicaments and biological substances; Z86.718 Personal history of other venous thrombosis and embolism; Z90.49 Acquired absence of other specified parts of digestive tract; Z87.09 Personal history of other diseases of the respiratory system
CPT/HCPCS: 96376 ×3; 96361 ×2; 96372 ×3; 96375 ×3; 96374; 99285; 36415; 93005; 85379; 80061; 80053 ×4; 82150 ×2; 82550; 82553; 83605; 83690 ×4; 83735; 84100; 84443; 84484; 85025 ×4; 85610; 85730; 81003; 87040; 87086; 87502; 71046; 70450; 70480; 74176; G0378 ×3; J7509 ×2; J2060 ×3; J1200; J2405 ×4; J1650 ×3; J1885; J1170 ×4; J0131; C9113 ×3

== ENCOUNTER 2018-08-04 20:31 | Emergency (ER) | payer BC, OTHER ==
[2018-08-04] MEDS ORDERED: ONDANSETRON 4 MG/2 ML VIAL IVP STA ×2 (20:53→23:00)
[2018-08-04] MEDS ORDERED: SODIUM CHLORIDE 0.9% 1,000 ML IV STA (20:53)
[2018-08-04] MEDS ORDERED: KETOROLAC 30 MG/ML 1 ML VIAL IVP STA (20:53)
[2018-08-04] MEDS ORDERED: HYDROmorphone 1 MG/ML 1 ML SYRINGE IVP STA ×2 (20:53→23:10)
--- NOTE | 2018-08-04 21:03 | ED ---
Abdominal Pain HPI - General Source: patient, family Mode of arrival: ambulatory Limitations: no limitations <Caitlin Negron - Last Filed: 08/05/18 01:15> <Chantale Dooley - Last Filed: 08/07/18 09:09> - General Chief Complaint: Abdominal Pain Stated Complaint: Abd pain Time Seen by Provider: 08/04/18 20:48 - History of Present Illness Initial Comments: 32-year-old female patient with past medical history significant for lupus chronic pancreatitis presents to the emergency department today for evaluation of increased upper abdominal pain and abdominal bloating. Patient was discharged from this facility yesterday after an inpatient admission for intractable abdominal pain and pancreatitis. Patient states that she was feeling somewhat improved at time of discharge however the pain has increased significantly. States she did eat earlier today with that worsened her pain. States that the pain is severe and does radiate through to her back. States that she is having normal bowel movements. Denies any hematuria, dysuria, urinary frequency, urinary or urgency. States that she has had surgery for ruptured appendix, hysterectomy, hiatal hernia and ventral hernia in the past. Her local surgeon is Dr. Dockery. States that she does see a market research intern at the [facility], she is requesting transfer to that facility, but states her pain was too severe to drive there. Patient denies any recent rash, fever, chills, shortness breath, chest pain, back pain, numbness, tingling, dizziness, weakness, headache, visual changes, or any other complaints. (Caitlin Negron) - Related Data Home Medications Medication Instructions Recorded Confirmed Biotin 5 mg PO DAILY 12/11/13 08/04/18 Benlysta Infusion 1 dose IV Q7D 06/18/15 08/04/18 Cholecalciferol [Vitamin D3] 5,000 unit PO DAILY 06/18/15 08/04/18 methylPREDNISolone 24 mg PO DAILY 06/30/15 08/04/18 Omeprazole [PriLOSEC] 20 mg PO AC-BRKFST 09/01/16 08/04/18 DULoxetine HCL [Cymbalta] 120 mg PO DAILY 07/31/18 08/04/18 Dextroamphetamine/Amphetamine 5 mg PO BID 07/31/18 08/04/18 [Adderall] Levothyroxine Sodium [Synthroid] 112 mcg PO DAILY 07/31/18 08/04/18 Pramipexole Di-HCl [Mirapex] 0.125 - 0.25 mg PO HS 07/31/18 08/04/18 Previous Rx's Medication Instructions Recorded Ondansetron Odt [Zofran ODT] 4 mg PO Q8HR PRN #10 tab 01/26/17 Allergies Allergy/AdvReac Type Severity Reaction Status Date / Time Penicillins Allergy Rash/Hives Verified 08/04/18 20:42 leflunomide [From Arava] AdvReac liver Verified 08/04/18 20:42 toxicity Review of Systems ROS Other: All systems not noted in ROS Statement are negative. <Caitlin Negron - Last Filed: 08/05/18 01:15> ROS Other: All systems not noted in ROS Statement are negative. <Chantale Dooley - Last Filed: 08/07/18 09:09> ROS Statement: Those systems with pertinent positive or pertinent negative responses have been documented in the HPI. Past Medical History Past Medical History: Deep Vein Thrombosis (DVT), Fibromyalgia, GERD/Reflux, Liver Disease, Rheumatoid Arthritis (RA), Thyroid Disorder Additional Past Medical History / Comment(s): SJOGREN'S, LUPUS, RAYNAUDS, LIVER TOXICITY, chronic pancreatis, fatty liver, hx thrush, hx anemia, pleurisy, "protein in kidneys" History of Any Multi-Drug Resistant Organisms: None Reported Past Surgical History: Appendectomy, Cholecystectomy, Ear Surgery, Hernia Repair , Hysterectomy, Tonsillectomy Additional Past Surgical History / Comment(s): ABSCESS after RUPTURED APPENDECTOMY, BENIGN TUMORS REMOVED FROM NECK AND MOUTH, sugery for hiatal hernia, plastic surgery on lower lip, TITANIUM screw insterted in mouth, Mediport 2013; sliding hernia surgery with mesh Past Anesthesia/Blood Transfusion Reactions: Postoperative Nausea & Vomiting ( PONV) Additional Past Anesthesia/Blood Transfusion Reaction / Comment(s): States heart rate very sensitive to anesthesia r/t lupus, occ drop in BP, "I USUALLY NEED STEROIDS TO COME OUT OF SURGERY" Past Psychological History: Anxiety, Depression Smoking Status: Current every day smoker Past Alcohol Use History: Rare Past Drug Use History: None Reported - Past Family History Mother Family Medical History: No Reported History <Caitlin Negron - Last Filed: 08/05/18 01:15> General Exam Limitations: no limitations General appearance: alert, in no apparent distress, other (Social well-developed , well-nourished adult female patient in mild distress related to pain. Vital signs upon presentation are temperature 98.3F, pulse 95, respirations 20, blood pressure 141/99, pulse ox 100% on room air.) Eye exam: Present: normal appearance, PERRL, EOMI. Absent: scleral icterus, conjunctival injection, periorbital swelling ENT exam: Present: normal exam, normal oropharynx, mucous membranes moist Respiratory exam: Present: normal lung sounds bilaterally. Absent: respiratory distress, wheezes, rales, rhonchi, stridor Cardiovascular Exam: Present: regular rate, normal rhythm, normal heart sounds. Absent: systolic murmur, diastolic murmur, rubs, gallop, clicks GI/Abdominal exam: Present: soft, tenderness (Upper abdominal tenderness), normal bowel sounds. Absent: distended, guarding, rebound, rigid Neurological exam: Present: alert, oriented X3, CN II-XII intact Psychiatric exam: Present: normal affect, normal mood Skin exam: Present: warm, dry, intact, normal color. Absent: rash <Caitlin Negron M - Last Filed: 08/05/18 01:15> Vital Signs 08/04/18 08/04/18 20:37 23:05 Temperature 98.3 F 98.4 F Pulse Rate 95 94 Respiratory 20 18 Rate Blood Pressure 141/99 131/94 O2 Sat by Pulse 100 99 Oximetry Medical Decision Making - Lab Data Result diagrams: 08/04/18 21:00 08/04/18 21:00 <Caitlin Negron M - Last Filed: 08/05/18 01:15> - Lab Data Result diagrams: 08/04/18 21:00 08/04/18 21:00 <Chantale Dooley P - Last Filed: 08/07/18 09:09> - Medical Decision Making 32-year-old female patient with past medical history significant for chronic pancreatitis and chronic abdominal pain presents to the emergency department today for complaints of abdominal pain, bloating, nausea, and vomiting. Patient was just discharged yesterday. Labs reviewed and did reveal elevated lipase at 399, amylase 139. Patient is afebrile, vital signs stable. She is given IV fluids, pain medication, Ativan here in the emergency department. States she is feeling somewhat improved. She is requesting transfer to [facility] to see her market research intern. Did discuss with patient that given labs and physical findings she does not have an admittable diagnosis in no medical necessity for transfer. She is however advised that she would like to be evaluated by her market research intern that she can take herself to the [facility]. She agrees to do this upon discharge. She is instructed follow up with her primary care physician for recheck in 1-2 days. Return parameters were discussed in detail. She verbalizes understanding and agrees with this plan (Caitlin Negron) I was available for consultation in the emergency department. The history and physical exam were done by the midlevel provider. I was consulted for this patient's care. I reviewed the case with the midlevel provider and based on their presentation of the patient, I agree with the assessment, medical decision making and plan of care as documented. (Chantale Dooley) - Lab Data Lab Results 08/04/18 08/04/18 08/04/18 Range/Units 21:00 21:00 21:00 WBC 7.0 (3.8-10.6) k/uL RBC 4.39 (3.80-5.40) m/uL Hgb 13.7 (11.4-16.0) gm/dL Hct 40.8 (34.0-46.0) % MCV 93.1 (80.0-100.0) fL MCH 31.3 (25.0-35.0) pg MCHC 33.6 (31.0-37.0) g/dL RDW 12.5 (11.5-15.5) % Plt Count 265 (150-450) k/uL Neutrophils % 56 % Lymphocytes % 29 % Monocytes % 9 % Eosinophils % 4 % Basophils % 0 % Neutrophils # 4.0 (1.3-7.7) k/uL Lymphocytes # 2.0 (1.0-4.8) k/uL Monocytes # 0.6 (0-1.0) k/uL Eosinophils # 0.3 (0-0.7) k/uL Basophils # 0.0 (0-0.2) k/uL Sodium 139 (137-145) mmol/L Potassium 4.5 (3.5-5.1) mmol/L Chloride 104 (98-107) mmol/L Carbon Dioxide 25 (22-30) mmol/L Anion Gap 10 mmol/L BUN 22 H (7-17) mg/dL Creatinine 0.74 (0.52-1.04) mg/dL Est GFR (CKD-EPI)AfAm >90 (>60 ml/min/1.73 sqM) Est GFR (CKD-EPI)NonAf >90 (>60 ml/min/1.73 sqM) Glucose 85 (74-99) mg/dL Plasma Lactic Acid Pacheco 1.3 (0.7-2.0) mmol/L Calcium 9.8 (8.4-10.2) mg/dL Total Bilirubin 0.4 (0.2-1.3) mg/dL AST 41 H (14-36) U/L ALT 74 H (9-52) U/L Alkaline Phosphatase 44 (38-126) U/L Total Protein 8.4 H (6.3-8.2) g/dL Albumin 4.3 (3.5-5.0) g/dL Amylase 139 H (30-110) U/L Lipase 399 H (23-300) U/L Disposition Is patient prescribed a controlled substance at d/c from ED?: No Time of Disposition: 23:12 <Caitlin Negron M - Last Filed: 08/05/18 01:15> <Chantale Dooley - Last Filed: 08/07/18 09:09> Clinical Impression: Intractable abdominal pain Disposition: HOME SELF-CARE Condition: Good Instructions: Abdominal Pain (ED) Additional Instructions: Proceed to [facility] for further evaluation by your market research intern. Return to the emergency department for new, worsening, or concerning symptoms. Referrals: Saran Perez MD [Primary Care Provider] - 1-2 days
[2018-08-04 21:14] LABS: Basophils % (A) 0 %; Eosinophils # (A) 0.3 k/uL (0-0.7); Eosinophils % (A) 4 %; HCT 40.8 % (34.0-46.0); HGB 13.7 gm/dL (11.4-16.0); Lymphocytes % (A) 29 %; MCH 31.3 pg (25.0-35.0); MCHC 33.6 g/dL (31.0-37.0); MCV 93.1 fL (80.0-100.0); Mean Platelet Volume 6.2; Monocytes # (A) 0.6 k/uL (0-1.0); Monocytes % (A) 9 %; Neutrophils % (A) 56 %; Platelet Count 265 k/uL (150-450); RBC 4.39 m/uL (3.80-5.40); RDW 12.5 % (11.5-15.5)
[2018-08-04 21:29] LABS: ALT 74 U/L (9-52); AST 41 U/L (14-36); Albumin 4.3 g/dL (3.5-5.0); Alkaline Phosphatase 44 U/L (38-126); Amylase 139 U/L (30-110); Anion Gap 10 mmol/L; Blood Urea Nitrogen 22 mg/dL (7-17); Calcium 9.8 mg/dL (8.4-10.2); Carbon Dioxide 25 mmol/L (22-30); Chloride 104 mmol/L (98-107); Glucose 85 mg/dL (74-99); Lipase 399 U/L (23-300); Potassium 4.5 mmol/L (3.5-5.1); Sodium 139 mmol/L (137-145); Total Bilirubin 0.4 mg/dL (0.2-1.3); Total Protein 8.4 g/dL (6.3-8.2)
[2018-08-04] MEDS ORDERED: LORazepam 2 MG/ML INJ IV STA (23:00)
[2018-08-04 23:07] VITALS: BP 131/94; PULSE 94; RESP 18; TEMP 98.4
== END 2018-08-04 23:33 | disposition home or self-care (01) ==
LOC: EC 20:31
DX: R10.10 Upper abdominal pain, unspecified (principal); R74.8 Abnormal levels of other serum enzymes; G89.29 Other chronic pain; R14.0 Abdominal distension (gaseous); R11.2 Nausea with vomiting, unspecified; M32.9 Systemic lupus erythematosus, unspecified; I73.00 Raynaud's syndrome without gangrene; K21.9 Gastro-esophageal reflux disease without esophagitis; K86.1 Other chronic pancreatitis; M06.9 Rheumatoid arthritis, unspecified; F32.9 Major depressive disorder, single episode, unspecified; F41.9 Anxiety disorder, unspecified; E07.9 Disorder of thyroid, unspecified; M35.00 Sjogren syndrome, unspecified; F17.200 Nicotine dependence, unspecified, uncomplicated; Z88.0 Allergy status to penicillin; Z88.8 Allergy status to other drugs, medicaments and biological substances; Z79.52 Long term (current) use of systemic steroids; Z79.899 Other long term (current) drug therapy; Z86.718 Personal history of other venous thrombosis and embolism; Z90.49 Acquired absence of other specified parts of digestive tract; Z90.710 Acquired absence of both cervix and uterus; Z98.890 Other specified postprocedural states
CPT/HCPCS: 99284; 96374; 96375 ×3; 96376 ×2; 96361; 36415; 80053; 82150; 83605; 83690; 85025; J2060; J2405; J1885; J1170

== ENCOUNTER → 2018-08-15 | Outpatient (CLI) | payer BC, OTHER ==
--- NOTE | 2018-08-15 14:52 | SFUN ---
SLEEP CENTER FOLLOW UP NOTE DATE OF SERVICE: 08/15/2018 Anyi Davila is a 32-year-old lady who has been followed in Sleep Center to discuss results of sleep studies and following plan. Sleep study did not show any significant respiratory abnormalities at all. Apnea- hypopnea index was 0 with lowest oxygen level 92.1%. EMG showed 26.7 periodic limb movements per hour with 4.0 microarousals per hour. Multiple sleep latency test done on the following day and showed pathological sleepiness with a mean sleep latency only 2.1 minute and then possible 1 sleep onset REM. The patient continued to have symptoms of excessive daytime sleepiness and symptoms of restless legs. Previously I tried Mirapex up to 2 tablets of 0.125 mg and the patient did not feel any difference with that. 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 She sleeps during the day, but sometimes she sleeps during the night and sometimes he has problem with falling asleep also and awakenings from sleep. Sleep efficiency during the sleep test was 80.9%, which is quite good range. [place] Sleepiness Scale today is 19. Recently patient was hospitalized for pancreatitis. Present medications are made to prednisolone, Prilosec, Zofran, [place], Synthroid, Cymbalta, mini [place] injection: Appearing benign. PHYSICAL EXAM: Patient in no distress. BP 154/94, HR 90, RR 16, weight 128.8, body mass index 24.1, height 61 inches, oxygen saturation on room air 100%. HEENT PERRLA, EOMI, evaluation of oropharynx showed tongue protrudes midline. Neck Supple, no JVD. Thyroid is not palpable. LUNGS Clear to percussion and to auscultation. Good air exchange. No wheezing or rhonchi. HEART S1, S2 regular. No murmurs, gallops, or rubs. ABDOMEN Soft and nontender. Bowel sounds are present. No organomegaly appreciated. EXTREMITIES No clubbing or cyanosis. VAMP STITCHER Awake, alert, and oriented X3. Cranial nerves 2 to 7 intact. There is no fasciculation or atrophy. noted. No focal deficits observed. IMPRESSION: 1. No respiratory abnormalities have been documented during the sleep study. 2. Mild periodic limb movements have been documented, 26.7 times per hour with 4 microarousals per hour have been documented. 3. History of restless legs syndrome. 4. Multiple sleep latency test confirmed pathological sleepiness, possible narcolepsy. Differential diagnosis also includes idiopathic hypersomnia. 5. History of recent pancreatitis. 6. History of systemic lupus erythematosus since 2003. 7. History of Sjogren's syndrome. 8. Acid reflux. 9. Hypothyroidism. 10.History of left leg arterial thrombosis, status post surgical treatment about 5 years ago with thrombolysis. 11.Status post partial hysterectomy. 12.Status post appendectomy. 13.Status post cholecystectomy. 14.History of fibromyalgia. 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 PLAN: 1. 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 2. Please check iron profile with ferritin level, low level of iron could be related to developing restless legs and periodic limb movements. 3. Dopaminergic agonist for restless legs and periodic limb movements. 4. Precautions related to driving. No driving if feeling any sleepiness. 5. Sleep hygiene with regular time in bed for at least 8 hours. 6. Naps permitted. Thank you very much for allowing me to participate in the management of your patient. Sincerely, Carlito Waterman MD, PhD, FAASM Diplomat of [employer] Freelance Writer of [facility] [place] MMJOHN / GUIDO: [id number] /
== END | disposition home or self-care (01) ==
LOC: SLEEP 13:13
PROVIDERS: ATTEND Internal Medicine
DX: G47.61 Periodic limb movement disorder (principal); R40.0 Somnolence; G25.81 Restless legs syndrome; K21.9 Gastro-esophageal reflux disease without esophagitis; E03.9 Hypothyroidism, unspecified; Z79.899 Other long term (current) drug therapy; Z79.52 Long term (current) use of systemic steroids; Z87.19 Personal history of other diseases of the digestive system; Z87.39 Personal history of other diseases of the musculoskeletal system and connective tissue; Z86.2 Personal history of diseases of the blood and blood-forming organs and certain disorders involving the immune mechanism; Z86.79 Personal history of other diseases of the circulatory system; Z90.711 Acquired absence of uterus with remaining cervical stump; Z90.49 Acquired absence of other specified parts of digestive tract; Z90.89 Acquired absence of other organs; Z98.890 Other specified postprocedural states

== ENCOUNTER → 2018-08-22 | Outpatient (CLI) | payer BC, OTHER ==
--- NOTE | 2018-08-22 13:28 | MR ---
EXAMINATION TYPE: MR brain and iac wo/w con DATE OF EXAM: 08/22/2018 COMPARISON: CT brain and CT internal auditory canal 08/01/2017 HISTORY: Rt ear hearing loss, Rt side weakness/numbness TECHNIQUE: Multiplanar, multisequence images of the brain and brainstem, internal auditory canals is performed w ithout and with IV contrast, utilizing 5.5 mL intravenous Gadavist . Small [id number] high-resolut ion images obtained through the internal auditory canals. FINDINGS: Diffusion weighted images demonstrate no evidence of a recent infarct or other diffusion ab normality. There is no extra-axial fluid collection or significant white matter signal abnormality. The ventricular system and cisternal spaces are normal in size and appearance. The brain volume is age appropriate. Midline structures demonstrate normal morphology. Cerebellopontine angles are normal, there is no ev ident mass or abnormal enhancement in the internal auditory canals The craniocervical junction appear s within normal limits. Post contrast images demonstrate no abnormal enhancement. The dural venous s inuses appear patent. The visualized sinuses are clear and the globes are intact. Minimal inflammator y change noted in mastoid air cells on the right. IMPRESSION: Normal pre and postcontrast brain, internal auditory canals. Minimal inflammatory change right mastoid air cells.
== END | disposition home or self-care (01) ==
LOC: RADMRIMAIN 10:54
PROVIDERS: ATTEND Otolaryngology
DX: R42 Dizziness and giddiness (principal); H91.91 Unspecified hearing loss, right ear; H93.11 Tinnitus, right ear; H93.3X1 Disorders of right acoustic nerve
CPT/HCPCS: 70553; A9585

== ENCOUNTER 2018-09-20 19:07 | Observation (INO) | payer BC, OTHER ==
[2018-09-20] MEDS ORDERED: SODIUM CHLORIDE 0.9% 1,000 ML IV STA ×2 (20:14)
[2018-09-20] MEDS ORDERED: HYDROmorphone 1 MG/ML 1 ML SYRINGE IVP STA (20:14)
[2018-09-20] MEDS ORDERED: ONDANSETRON 4 MG/2 ML VIAL IVP STA (20:14)
--- NOTE | 2018-09-20 20:26 | ED ---
General Adult HPI - General Chief complaint: Neuro Symptoms/Deficit Stated complaint: Chest pain, vertigo Source: patient, family, RN notes reviewed, old records reviewed Mode of arrival: ambulatory Limitations: no limitations - History of Present Illness Initial comments: Chief complaint and history of present illness this is a 32-year-old female here with her . The patient has multiple medical problems. She reports this morning that she had difficulty walking because of numbness and tingling to her left leg. She had difficulty wiggling her toes. She reports this is happened several times in the past when she has a flare of her Sjogren's or lupus diseases. The patient has had chronic medical problems and sees a baby counselor from [facility]. She states recently she was treated multiple times, 5 times per patient for mastoiditis. She's had vertigo increasing decreasing chronic earaches. The difficulty she had with her leg subsided after several hours. Patient's complaint muscle aches and pains, abdominal discomfort nausea vomiting loose stool 5 days. - Related Data Home Medications Medication Instructions Recorded Confirmed Biotin 5 mg PO DAILY 12/11/13 09/20/18 Benlysta Infusion 1 dose IV WE 06/18/15 09/20/18 Cholecalciferol [Vitamin D3] 5,000 unit PO DAILY 06/18/15 09/20/18 methylPREDNISolone 8 mg PO DAILY 06/30/15 09/20/18 Omeprazole [PriLOSEC] 20 mg PO AC-BRKFST 09/01/16 09/20/18 DULoxetine HCL [Cymbalta] 120 mg PO DAILY 07/31/18 09/20/18 Levothyroxine Sodium [Synthroid] 112 mcg PO DAILY 07/31/18 09/20/18 Dextroamphetamine/Amphetamine 10 mg PO TID 09/20/18 09/20/18 [Adderall] rOPINIRole HCL [Requip] 0.5 mg PO HS 09/20/18 09/20/18 Previous Rx's Medication Instructions Recorded Ondansetron Odt [Zofran ODT] 4 mg PO Q8HR PRN #10 tab 01/26/17 Allergies Allergy/AdvReac Type Severity Reaction Status Date / Time Penicillins Allergy Rash/Hives Verified 09/20/18 20:58 leflunomide [From Arava] AdvReac liver Verified 09/20/18 20:58 toxicity Review of Systems ROS Statement: Those systems with pertinent positive or pertinent negative responses have been documented in the HPI. Review of systems. Mild headache mild photophobia with history of migraines. Chronic bilateral ear pains chronic bilateral mastoid pain. Right worse than the left. No stiff neck. Reports she had discomfort to the right side of her chest on again off again for several days. Chronic abdominal pain more in the right upper quadrant lately. Past history of chronic pancreatitis. The patient 's had a flare of her RA, with frequent episodes rate not to the hands with numbness. Past medical problems significant for DVT in March. Currently not on any blood thinners. States she has an appointment for removal of the clot in [facility] within the month. Also history of fibromyalgia, GERD, chronic liver disease associated with medications to treat her lupus. Rheumatoid arthritis, hypothyroidism. Sjogren's, lupus rate not. Surgeries include a ruptured appendix subsequent infection. Cholecystectomy, ear tubes bilaterally , ventral and hiatal hernia repair, partial hysterectomy, tonsillectomy. Family history noncontributory. Patient has reports ALLERGIES to penicillins. ROS Other: All systems not noted in ROS Statement are negative. Past Medical History Past Medical History: Deep Vein Thrombosis (DVT), Fibromyalgia, GERD/Reflux, Liver Disease, Rheumatoid Arthritis (RA), Thyroid Disorder Additional Past Medical History / Comment(s): SJOGREN'S, LUPUS, RAYNAUDS, LIVER TOXICITY, chronic pancreatis, fatty liver, hx thrush, hx anemia, pleurisy, "protein in kidneys" History of Any Multi-Drug Resistant Organisms: None Reported Past Surgical History: Appendectomy, Cholecystectomy, Ear Surgery, Hernia Repair , Hysterectomy, Tonsillectomy Additional Past Surgical History / Comment(s): ABSCESS after RUPTURED APPENDECTOMY, BENIGN TUMORS REMOVED FROM NECK AND MOUTH, sugery for hiatal hernia, plastic surgery on lower lip, TITANIUM screw insterted in mouth, Mediport 2013; sliding hernia surgery with mesh Past Anesthesia/Blood Transfusion Reactions: Postoperative Nausea & Vomiting ( PONV) Additional Past Anesthesia/Blood Transfusion Reaction / Comment(s): States heart rate very sensitive to anesthesia r/t lupus, occ drop in BP, "I USUALLY NEED STEROIDS TO COME OUT OF SURGERY" Past Psychological History: Anxiety, Depression Smoking Status: Current every day smoker Past Alcohol Use History: None Reported Past Drug Use History: Marijuana - Past Family History Mother Family Medical History: No Reported History General Exam - General Exam Comments Initial Comments: General: The patient is awake and alert, has multiple complaints from headache to right- sided chest pain, right upper quadrant discomfort, multiple joint pain and short lived numbness left leg dysfunction which now returned to normal. Which she reports is happened multiple times in the past. Vital signs show temperature 98.4 pulse 77 respiratory rate 18 pulse ox on percent room air blood pressure 161 of 107 this will be repeated. Eye: Pupils are equal, round and reactive to light, extra-ocular movements are intact ; there is normal conjunctiva bilaterally. No signs of icterus. Ears, nose, mouth and throat: There are moist mucous membranes and no oral lesions. Both tympanic membranes show evidence of scarring. Neck: The neck is supple, there is no tenderness, no anterior cervical lymphadenopathy. Cardiovascular: There is a regular rate and rhythm. No murmur, rub or gallop is appreciated. Respiratory: Lungs are clear to auscultation, respirations are non-labored, breath sounds are equal. No wheezes, stridor, rales, or rhonchi. Patient complains of right- sided chest discomfort. Gastrointestinal: Patient complains of chronic right upper quadrant and epigastric discomfort. Has had diarrhea for 5 days. Patient has voluntary guarding Back: There is no tenderness to palpation in the midline. There is no obvious deformity. No rashes noted. Musculoskeletal: Patient has a history of lupus and RA, reports she feels she is in a flare with multiple joints causing pain. Neurological: Patient reports that her initial complaint of numbness and tingling to her left leg has gone away. She has able to ambulate. Move upper and lower extremities. Answer questions appropriately. No specific focal findings appreciated this time. Skin: Skin is warm and dry and no rashes or lesions are noted. Psychiatric: Cooperative, history of depression, anxiety. Limitations: no limitations Course Vital Signs 09/20/18 09/20/18 19:08 20:33 Temperature 98.4 F Pulse Rate 77 67 Respiratory 18 18 Rate Blood Pressure 161/107 142/98 O2 Sat by Pulse 100 98 Oximetry Medical Decision Making - Medical Decision Making Medical decision making; this is a 32-year-old female with multiple complaints. Reports she had a numb left leg which his symptoms resolved. States this happens on occasion because of her Ray nods and lupus disorder. The patient also complains of multiple joint aches and pains. Chronic recurrent stomach discomfort. Diarrhea for 5 days. The patient's white count is 5.8 hemoglobin 13 hematocrit 40, INR 0.9. Potassium 3.8 with a BUN 12 creatinine 0.7 and GFR greater than 90. Glucose 92. Troponin less than 0.012. Amylase and lipase within normal limits. Chest x-ray is done AP and lateral view and reviewed by radiologist his impression is heart and mediastinum are normal. Lungs are clear. Diaphragm is normal. Bony thorax is intact. There are chest leads. Impression normal chest. No change. As read by Dr. Maynard X-ray of the abdomen was done and reviewed by radiologist his impression is supine and upright views were obtained and show no sign of intestinal obstruction or pneumoperitoneum. Fecal pattern is normal. Lung bases are clear. There are no pathologic calcifications. Impression nonacute abdomen. As read by Dr. Maynard - Lab Data Result diagrams: 09/20/18 20:17 09/20/18 20:17 Lab Results 09/20/18 09/20/18 09/20/18 Range/Units 20:17 20:17 20:17 WBC 5.8 (3.8-10.6) k/uL RBC 4.32 (3.80-5.40) m/uL Hgb 13.5 (11.4-16.0) gm/dL Hct 40.0 (34.0-46.0) % MCV 92.6 (80.0-100.0) fL MCH 31.3 (25.0-35.0) pg MCHC 33.8 (31.0-37.0) g/dL RDW 12.5 (11.5-15.5) % Plt Count 290 (150-450) k/uL Neutrophils % 60 % Lymphocytes % 27 % Monocytes % 8 % Eosinophils % 3 % Basophils % 1 % Neutrophils # 3.5 (1.3-7.7) k/uL Lymphocytes # 1.5 (1.0-4.8) k/uL Monocytes # 0.4 (0-1.0) k/uL Eosinophils # 0.2 (0-0.7) k/uL Basophils # 0.0 (0-0.2) k/uL PT (9.0-12.0) sec INR (<1.2) APTT (22.0-30.0) sec Sodium 140 (137-145) mmol/L Potassium 3.8 (3.5-5.1) mmol/L Chloride 106 (98-107) mmol/L Carbon Dioxide 27 (22-30) mmol/L Anion Gap 7 mmol/L BUN 12 (7-17) mg/dL Creatinine 0.70 (0.52-1.04) mg/dL Est GFR (CKD-EPI)AfAm >90 (>60 ml/min/1.73 sqM) Est GFR (CKD-EPI)NonAf >90 (>60 ml/min/1.73 sqM) Glucose 92 (74-99) mg/dL Plasma Lactic Acid Pacheco 1.5 (0.7-2.0) mmol/L Calcium 9.6 (8.4-10.2) mg/dL Total Bilirubin 0.2 (0.2-1.3) mg/dL AST 21 (14-36) U/L ALT 28 (9-52) U/L Alkaline Phosphatase 58 (38-126) U/L Creatine Kinase 65 (30-135) U/L Troponin I (0.000-0.034) ng/mL Total Protein 8.3 H (6.3-8.2) g/dL Albumin 4.4 (3.5-5.0) g/dL Amylase 90 (30-110) U/L Lipase 287 (23-300) U/L 09/20/18 09/20/18 Range/Units 20:17 20:17 WBC (3.8-10.6) k/uL RBC (3.80-5.40) m/uL Hgb (11.4-16.0) gm/dL Hct (34.0-46.0) % MCV (80.0-100.0) fL MCH (25.0-35.0) pg MCHC (31.0-37.0) g/dL RDW (11.5-15.5) % Plt Count (150-450) k/uL Neutrophils % % Lymphocytes % % Monocytes % % Eosinophils % % Basophils % % Neutrophils # (1.3-7.7) k/uL Lymphocytes # (1.0-4.8) k/uL Monocytes # (0-1.0) k/uL Eosinophils # (0-0.7) k/uL Basophils # (0-0.2) k/uL PT 10.0 (9.0-12.0) sec INR 0.9 (<1.2) APTT 22.6 (22.0-30.0) sec Sodium (137-145) mmol/L Potassium (3.5-5.1) mmol/L Chloride (98-107) mmol/L Carbon Dioxide (22-30) mmol/L Anion Gap mmol/L BUN (7-17) mg/dL Creatinine (0.52-1.04) mg/dL Est GFR (CKD-EPI)AfAm (>60 ml/min/1.73 sqM) Est GFR (CKD-EPI)NonAf (>60 ml/min/1.73 sqM) Glucose (74-99) mg/dL Plasma Lactic Acid Pacheco (0.7-2.0) mmol/L Calcium (8.4-10.2) mg/dL Total Bilirubin (0.2-1.3) mg/dL AST (14-36) U/L ALT (9-52) U/L Alkaline Phosphatase (38-126) U/L Creatine Kinase (30-135) U/L Troponin I <0.012 (0.000-0.034) ng/mL Total Protein (6.3-8.2) g/dL Albumin (3.5-5.0) g/dL Amylase (30-110) U/L Lipase (23-300) U/L Disposition Clinical Impression: Lupus arthritis Disposition: ADMITTED IP TO THIS HOSP Condition: Fair Is patient prescribed a controlled substance at d/c from ED?: No Referrals: Saran Perez MD [Primary Care Provider] - 1-2 days
[2018-09-20 20:33] LABS: Basophils % (A) 1 %; Eosinophils # (A) 0.2 k/uL (0-0.7); Eosinophils % (A) 3 %; HGB 13.5 gm/dL (11.4-16.0); Lymphocytes # (A) 1.5 k/uL (1.0-4.8); Lymphocytes % (A) 27 %; MCH 31.3 pg (25.0-35.0); MCHC 33.8 g/dL (31.0-37.0); MCV 92.6 fL (80.0-100.0); Mean Platelet Volume 6.3; Monocytes # (A) 0.4 k/uL (0-1.0); Monocytes % (A) 8 %; Neutrophils # (A) 3.5 k/uL (1.3-7.7); Neutrophils % (A) 60 %; Platelet Count 290 k/uL (150-450); RBC 4.32 m/uL (3.80-5.40); RDW 12.5 % (11.5-15.5); WBC 5.8 k/uL (3.8-10.6)
[2018-09-20 20:42] LABS: ALT 28 U/L (9-52); AST 21 U/L (14-36); Albumin 4.4 g/dL (3.5-5.0); Alkaline Phosphatase 58 U/L (38-126); Amylase 90 U/L (30-110); Anion Gap 7 mmol/L; Blood Urea Nitrogen 12 mg/dL (7-17); Calcium 9.6 mg/dL (8.4-10.2); Carbon Dioxide 27 mmol/L (22-30); Chloride 106 mmol/L (98-107); Creatine Kinase 65 U/L (30-135); Glucose 92 mg/dL (74-99); INR 0.9 (<1.2); Lipase 287 U/L (23-300); Partial Thromboplastin Time 22.6 sec (22.0-30.0); Potassium 3.8 mmol/L (3.5-5.1); Sodium 140 mmol/L (137-145); Total Bilirubin 0.2 mg/dL (0.2-1.3); Total Protein 8.3 g/dL (6.3-8.2)
--- NOTE | 2018-09-20 21:25 | XR ---
EXAMINATION TYPE: XR chest 2V DATE OF EXAM: 09/20/2018 COMPARISON: August 01, 2018 HISTORY: Pain TECHNIQUE: Frontal and lateral views of the chest are obtained. FINDINGS: Heart and mediastinum are normal. Lungs are clear. Diaphragm is normal. Bony thorax is int act. There are chest leads. IMPRESSION: Normal chest. No change.
--- NOTE | 2018-09-20 21:35 | XR ---
Abdomen 2 views. History abdominal pain. Comparison none. FINDINGS: Supine and upright views were obtained and show no sign of intestinal obstruction or pneumoperitoneum . Fecal pattern is normal. Lung bases are clear. There are no pathologic calcifications. IMPRESSION: Nonacute abdomen.
[2018-09-20] MEDS ORDERED: methylPREDNISolone SOD SUCCI 125 MG/2 ML VIAL IV STA (21:42)
[2018-09-20] MEDS ORDERED: NALOXONE 0.4 MG/ML 1 ML VIAL IV PRN (21:45)
[2018-09-20] MEDS ORDERED: ONDANSETRON ODT 4 MG TAB PO PRN (21:48)
[2018-09-20] MEDS ORDERED: SODIUM CHLORIDE 0.9% IVPB SCH (22:00)
[2018-09-20] MEDS ORDERED: METHYLPREDNISOLONE SOD SUCCI IVPB SCH (22:00)
[2018-09-20 22:28] LABS: Amorphous Sediment,Urine Moderate /hpf; Appearance,Urine Turbid (Clear); Bilirubin,Urine Negative (Negative); Blood,Urine Negative (Negative); Color,Urine Light Yellow; Glucose,Urine (UA) Negative (Negative); Ketones,Urine Negative (Negative); Leukocyte Esterase,Urine Negative (Negative); Mucus,Urine Rare /hpf; Nitrite,Urine Negative (Negative); Protein,Urine Negative (Negative); Specific Gravity,Urine 1.009 (1.001-1.035); Squamous Epithelial Cell,Urine 1 /hpf (0-4); Urobilinogen,Urine <2.0 mg/dL (<2.0)
[2018-09-20] MEDS: Dextroamphetamine/Amphetamine [Adderall] 10 MG PO SCH (23:49)
[2018-09-21] MEDS: DULoxetine HCL 60 MG CAPSULE.DR PO SCH ×2 (00:06→08:09)
[2018-09-21] MEDS: HYDROmorphone 0.5 MG/0.5 ML SYRINGE IVP PRN ×6 (00:06→16:03)
[2018-09-21] MEDS: SODIUM CHLORIDE 0.9% 1,000 ML IV SCH ×3 (00:08→11:33)
[2018-09-21] MEDS ORDERED: ALPRAZolam 0.5 MG TAB PO STA (01:33)
[2018-09-21] MEDS: methylPREDNISolone SOD SUCCI 125 MG/2 ML VIAL IV SCH ×3 (03:29→16:03)
[2018-09-21] MEDS ORDERED: LEVOTHYROXINE 112 MCG TAB PO SCH (06:30)
[2018-09-21 07:53] VITALS: RESP 18; TEMP 97.7
[2018-09-21] MEDS: Dextroamphetamine/Amphetamine [Adderall] 10 MG PO SCH ×3 (08:08→11:33)
[2018-09-21] MEDS ORDERED: CHOLECALCIFEROL 1,000 UNIT TAB PO SCH (09:00)
[2018-09-21] MEDS ORDERED: DULoxetine HCL 60 MG CAPSULE.DR PO SCH (09:00)
[2018-09-21 13:09] VITALS: BP 103/61; PULSE 77
--- NOTE | 2018-09-21 16:34 | P.HPIM ---
History of Present Illness H&P Date: 09/21/18 Chief Complaint: Chest pain, vertigo Chief complaint and history of present illness this is a 32-year-old female here with her . The patient has multiple medical problems. She reports this morning that she had difficulty walking because of numbness and tingling to her left leg. She had difficulty wiggling her toes. She reports this is happened several times in the past when she has a flare of her Sjogren's or lupus diseases. The patient has had chronic medical problems and sees a fish conservationist from [facility]. She states recently she was treated multiple times, 5 times per patient for mastoiditis. She's had vertigo increasing decreasing chronic earaches. The difficulty she had with her leg subsided after several hours. Patient's complaint muscle aches and pains, abdominal discomfort nausea vomiting loose stool 5 days. Review of Systems Those systems with pertinent positive or pertinent negative responses have been documented in the HPI. Review of systems. Mild headache mild photophobia with history of migraines. Chronic bilateral ear pains chronic bilateral mastoid pain. Right worse than the left. No stiff neck. Reports she had discomfort to the right side of her chest on again off again for several days. Chronic abdominal pain more in the right upper quadrant lately. Past history of chronic pancreatitis. The patient 's had a flare of her RA, with frequent episodes rate not to the hands with numbness. Past Medical History Past Medical History: Deep Vein Thrombosis (DVT), Fibromyalgia, GERD/Reflux, Liver Disease, Rheumatoid Arthritis (RA), Thyroid Disorder Additional Past Medical History / Comment(s): SJOGREN'S, LUPUS, RAYNAUDS, LIVER TOXICITY, chronic pancreatis, fatty liver, hx thrush, hx anemia, pleurisy, "protein in kidneys" History of Any Multi-Drug Resistant Organisms: None Reported Past Surgical History: Appendectomy, Cholecystectomy, Ear Surgery, Hernia Repair , Hysterectomy, Tonsillectomy Additional Past Surgical History / Comment(s): ABSCESS after RUPTURED APPENDECTOMY, BENIGN TUMORS REMOVED FROM NECK AND MOUTH, sugery for hiatal hernia, plastic surgery on lower lip, TITANIUM screw insterted in mouth, Mediport 2013; sliding hernia surgery with mesh Past Anesthesia/Blood Transfusion Reactions: Postoperative Nausea & Vomiting ( PONV) Additional Past Anesthesia/Blood Transfusion Reaction / Comment(s): States heart rate very sensitive to anesthesia r/t lupus, occ drop in BP, "I USUALLY NEED STEROIDS TO COME OUT OF SURGERY" Past Psychological History: Anxiety, Depression Smoking Status: Current every day smoker Past Alcohol Use History: None Reported Past Drug Use History: Marijuana - Past Family History Mother Family Medical History: No Reported History Medications and Allergies Home Medications Medication Instructions Recorded Confirmed Type Biotin 5 mg PO DAILY 12/11/13 09/20/18 History Benlysta Infusion 1 dose IV WE 06/18/15 09/20/18 History Cholecalciferol [Vitamin D3] 5,000 unit PO DAILY 06/18/15 09/20/18 History methylPREDNISolone 8 mg PO DAILY 06/30/15 09/20/18 History Omeprazole [PriLOSEC] 20 mg PO AC-BRKFST 09/01/16 09/20/18 History Ondansetron Odt [Zofran ODT] 4 mg PO Q8HR PRN #10 tab 01/26/17 09/20/18 Rx DULoxetine HCL [Cymbalta] 120 mg PO DAILY 07/31/18 09/20/18 History Levothyroxine Sodium [Synthroid] 112 mcg PO DAILY 07/31/18 09/20/18 History Dextroamphetamine/Amphetamine 10 mg PO BID 09/20/18 09/20/18 History [Adderall] rOPINIRole HCL [Requip] 0.5 mg PO HS 09/20/18 09/20/18 History predniSONE See Taper PO DIRECTED #20 tab 09/21/18 Rx Allergies Allergy/AdvReac Type Severity Reaction Status Date / Time Penicillins Allergy Rash/Hives Verified 09/20/18 23:29 leflunomide [From Arava] AdvReac liver Verified 09/20/18 23:29 toxicity Physical Exam Vitals: Vital Signs Temp Pulse Pulse Resp BP BP BP 09/21/18 08:00 60 18 09/21/18 07:52 97.7 F 60 18 102/63 09/21/18 03:56 16 09/20/18 23:37 16 09/20/18 23:08 98.2 F 60 16 146/94 09/20/18 22:12 98.1 F 65 18 144/88 09/20/18 20:33 67 18 142/98 09/20/18 19:08 98.4 F 77 18 161/107 Pulse Ox 02/22/19 08:00 09/21/18 07:52 97 09/21/18 03:56 09/20/18 23:37 09/20/18 23:08 100 09/20/18 22:12 100 09/20/18 20:33 98 09/20/18 19:08 100 Intake and Output 09/20/18 09/21/18 09/21/18 22:59 06:59 14:59 Intake Total 600 Balance 600 Intake: IV 600 Sodium Chloride 0.9% 1, 600 000 ml @ 100 mls/hr IV . Q10H [facility] Rx#:[id number] Other: Voiding Method Toilet Toilet Weight 54.431 kg The patient is awake and alert, has multiple complaints from headache to right- sided chest pain, right upper quadrant discomfort, multiple joint pain and short lived numbness left leg dysfunction which now returned to normal. Which she reports is happened multiple times in the past. Vital signs show temperature 98.4 pulse 77 respiratory rate 18 pulse ox on percent room air blood pressure 161 of 107 this will be repeated. Eye: Pupils are equal, round and reactive to light, extra-ocular movements are intact ; there is normal conjunctiva bilaterally. No signs of icterus. Ears, nose, mouth and throat: There are moist mucous membranes and no oral lesions. Both tympanic membranes show evidence of scarring. Neck: The neck is supple, there is no tenderness, no anterior cervical lymphadenopathy. Cardiovascular: There is a regular rate and rhythm. No murmur, rub or gallop is appreciated. Respiratory: Lungs are clear to auscultation, respirations are non-labored, breath sounds are equal. No wheezes, stridor, rales, or rhonchi. Patient complains of right- sided chest discomfort. Gastrointestinal: Patient complains of chronic right upper quadrant and epigastric discomfort. Has had diarrhea for 5 days. Patient has voluntary guarding Back: There is no tenderness to palpation in the midline. There is no obvious deformity. No rashes noted. Musculoskeletal: Patient has a history of lupus and RA, reports she feels she is in a flare with multiple joints causing pain. Neurological: Patient reports that her initial complaint of numbness and tingling to her left leg has gone away. She has able to ambulate. Move upper and lower extremities. Answer questions appropriately. No specific focal findings appreciated this time. Skin: Skin is warm and dry and no rashes or lesions are noted. Psychiatric: Cooperative, history of depression, anxiety. Results CBC & Chem 7: 09/20/18 20:17 09/20/18 20:17 Labs: Abnormal Lab Results - Last 24 Hours (Table) 09/20/18 09/20/18 Range/Units 20:17 22:20 Total Protein 8.3 H (6.3-8.2) g/dL Urine Appearance Turbid H (Clear) Amorphous Sediment Moderate H (None) /hpf Urine Mucus Rare H (None) /hpf Thrombosis Risk Factor Assmnt - Choose All That Apply Any of the Below Risk Factors Present?: Yes Each Factor Represents 1 point: Varicose veins Other Risk Factors: Yes Each Risk Factor Represents 3 Points: Family history of DVT/PE, Positive Lupus Anticoagulant Other congenital or acquired thrombophilia - If yes, enter type in comment: No Thrombosis Risk Factor Assessment Total Risk Factor Score: 7 Thrombosis Risk Factor Assessment Level: High Risk Assessment and Plan Assessment: 1. Acute exacerbation lupus arthritis - Patient started on Solu-Medrol 60 mg IV every 8 hours - We will start with quick taper once patient shows subjective improvement 2. Acute onset diarrhea; rule out C. diff colitis - We will put patient on contact precautions and send stool specimen for C. diff toxin - Symptomatically treatment of diarrhea 3. Uncontrolled hypertension; patient not on any antihypertensive medications at home - We will continue to monitor blood pressure closely and start patient on antihypertensive therapy if remains elevated 4. Recent history of DVT; not on any blood thinners; patient relates she has appointment with [facility] within a month for removal of clot CODE STATUS; full code Time with Patient: Greater than 30
--- NOTE | 2018-09-21 16:36 | P.DS ---
Providers Date of admission: 09/20/18 21:45 Expected date of discharge: 09/21/18 Attending physician: Jeremiah Sarabia Primary care physician: aSran Perez [facility] Course: 32-year-old female here with her . The patient has multiple medical problems. She reports this morning that she had difficulty walking because of numbness and tingling to her left leg. She had difficulty wiggling her toes. She reports this is happened several times in the past when she has a flare of her Sjogren's or lupus diseases. The patient has had chronic medical problems and sees a managing consultant from [facility]. She states recently she was treated multiple times, 5 times per patient for mastoiditis. She's had vertigo increasing decreasing chronic earaches. The difficulty she had with her leg subsided after several hours. Patient's complaint muscle aches and pains, abdominal discomfort nausea vomiting loose stool 5 days. Course of action and plan of care is as below 1. Acute exacerbation lupus arthritis - Patient started on Solu-Medrol 60 mg IV every 8 hours - We will start with quick taper once patient shows subjective improvement 2. Acute onset diarrhea; rule out C. diff colitis - We will put patient on contact precautions and send stool specimen for C. diff toxin - Symptomatically treatment of diarrhea 3. Uncontrolled hypertension; patient not on any antihypertensive medications at home - We will continue to monitor blood pressure closely and start patient on antihypertensive therapy if remains elevated 4. Recent history of DVT; not on any blood thinners; patient relates she has appointment with [facility] within a month for removal of clot Patient did report improvement in symptoms with above treatment; she was switched to oral prednisone with a plan for a quick taper. Patient didn't have any episodes of diarrhea while in the hospital She was discharged home in a stable condition Patient Condition at Discharge: Fair Plan - Discharge Summary Discharge Rx Participant: No New Discharge Prescriptions: New predniSONE See Taper PO DIRECTED #20 tab No Action Biotin 5 mg PO DAILY Cholecalciferol [Vitamin D3] 5,000 unit PO DAILY Benlysta Infusion 1 dose IV WE methylPREDNISolone 8 mg PO DAILY Omeprazole [PriLOSEC] 20 mg PO AC-BRKFST Ondansetron Odt [Zofran ODT] 4 mg PO Q8HR PRN #10 tab PRN Reason: Nausea Levothyroxine Sodium [Synthroid] 112 mcg PO DAILY DULoxetine HCL [Cymbalta] 120 mg PO DAILY Dextroamphetamine/Amphetamine [Adderall] 10 mg PO BID rOPINIRole HCL [Requip] 0.5 mg PO HS Discharge Medication List Biotin 5 mg PO DAILY 12/11/13 [History] Benlysta Infusion 1 dose IV WE 06/18/15 [History] Cholecalciferol [Vitamin D3] 5,000 unit PO DAILY 06/18/15 [History] methylPREDNISolone 8 mg PO DAILY 06/30/15 [History] Omeprazole [PriLOSEC] 20 mg PO AC-BRKFST 09/01/16 [History] Ondansetron Odt [Zofran ODT] 4 mg PO Q8HR PRN #10 tab 01/26/17 [Rx] DULoxetine HCL [Cymbalta] 120 mg PO DAILY 07/31/18 [History] Levothyroxine Sodium [Synthroid] 112 mcg PO DAILY 07/31/18 [History] Dextroamphetamine/Amphetamine [Adderall] 10 mg PO BID 09/20/18 [History] rOPINIRole HCL [Requip] 0.5 mg PO HS 09/20/18 [History] predniSONE See Taper PO DIRECTED #20 tab 09/21/18 [Rx] Follow up Appointment(s)/Referral(s): Saran Perez MD [Primary Care Provider] - 1-2 days Discharge Disposition: HOME SELF-CARE
== END 2018-09-21 16:30 | disposition home or self-care (01) ==
LOC: EC 19:07 → 1SOBS 21:45
PROVIDERS: ADMIT Hospitalist; ATTEND Hospitalist
DX: M32.19 Other organ or system involvement in systemic lupus erythematosus (principal); M14.80 Arthropathies in other specified diseases classified elsewhere, unspecified site; R19.7 Diarrhea, unspecified; I10 Essential (primary) hypertension; M35.00 Sjogren syndrome, unspecified; M06.9 Rheumatoid arthritis, unspecified; M79.7 Fibromyalgia; K21.9 Gastro-esophageal reflux disease without esophagitis; K76.9 Liver disease, unspecified; E03.9 Hypothyroidism, unspecified; I83.90 Asymptomatic varicose veins of unspecified lower extremity; R07.89 Other chest pain; G89.29 Other chronic pain; H92.03 Otalgia, bilateral; R10.11 Right upper quadrant pain; I73.00 Raynaud's syndrome without gangrene; K76.0 Fatty (change of) liver, not elsewhere classified; F32.9 Major depressive disorder, single episode, unspecified; F41.9 Anxiety disorder, unspecified; G43.909 Migraine, unspecified, not intractable, without status migrainosus; Z90.49 Acquired absence of other specified parts of digestive tract; Z86.718 Personal history of other venous thrombosis and embolism; Z88.8 Allergy status to other drugs, medicaments and biological substances; Z88.0 Allergy status to penicillin; Z79.899 Other long term (current) drug therapy; Z79.52 Long term (current) use of systemic steroids; Z79.890 Hormone replacement therapy; F17.200 Nicotine dependence, unspecified, uncomplicated
CPT/HCPCS: 96361 ×3; 96376; 96374; 96375; 99285; 36415; 93005; 80053; 82150; 82550; 83605; 83690; 84484; 85025; 85610; 85730; 81001; 71046; 74019; G0378 ×2; J2930 ×2; J2405; J1170 ×2

== ENCOUNTER → 2018-10-25 | Outpatient (CLI) | payer BC, OTHER ==
--- NOTE | 2018-10-25 12:22 | SFUN ---
SLEEP CENTER FOLLOW UP NOTE DATE OF SERVICE: 10/25/2018 A 32-year-old lady had been followed in sleep center for treatment of possible narcolepsy and periodic limb movements. Recently, the dose of medication was increased from 5 mg 2 times a day to 10 mg 2 times a day. With this dose, patient feels better. Not so sleepy as before. 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 No any side effects of medication like tachycardia or increasing blood pressure or increasing problems with anxiety. MEDICATIONS: Methylprednisolone, Prilosec, Zofran, Synthroid, Cymbalta, Requip . PHYSICAL EXAM: During physical exam, patient in no distress. VITAL SIGNS: BP 124/77, HR 74, RR 16, height 5 feet 1 inch, weight 133, body mass index 25.1, temperature 97.7. Oxygen saturation on room air 100%. HEENT: PERRLA, EOMI, evaluation of oropharynx showed tongue protrudes midline. NECK: Supple, no JVD. Thyroid is not palpable. LUNGS: Clear to percussion and to auscultation. Good air exchange. No wheezing or rhonchi. HEART: S1, S2 regular. No murmurs, gallops, or rubs. ABDOMEN: Soft and nontender. Bowel sounds are present. No organomegaly appreciated. EXTREMITIES: No clubbing or cyanosis. VICE PRESIDENT BIOSTATISTICS: Awake, alert, and oriented X3. Cranial nerves 2 to 7 intact. There is no fasciculation or atrophy. noted. No focal deficits observed. IMPRESSION: 1. Possible narcolepsy. Multiple sleep latency test confirmed pathological sleepiness. 2. Mild periodic limb movements. 3. History of restless legs syndrome. 4. History of recent pancreatitis, status post pancreatic biopsy recently. 5. Status post recent leg surgery for venous problems. 6. History of systemic lupus erythematosus since 2003. 7. History of Sjogren syndrome. 8. Acid reflux. 9. Hypothyroidism. 10.Status post partial hysterectomy. 11.Status post appendectomy. 12.Status post cholecystectomy. 13.History of fibromyalgia. PLAN: 1. Patient will continue to take Adderall 10 mg 2 times a day. 2. Sleep hygiene with regular time in bed for at least 8 hours. 3. Precautions related to driving. No driving if feeling any sleepiness. Thank you very much for allowing me to participate in management of your patient. Sincerely, Carlito Stefadu, MD, PhD, FAASM Diplomat of [employer] Sanitation Inspector of [facility] [place] MMODL / GUIDO: [id number] /
== END ==
LOC: SLEEP 10:46
PROVIDERS: ATTEND Internal Medicine
DX: G47.61 Periodic limb movement disorder (principal); G25.81 Restless legs syndrome; K85.90 Acute pancreatitis without necrosis or infection, unspecified; M35.00 Sjogren syndrome, unspecified; K21.9 Gastro-esophageal reflux disease without esophagitis; M79.7 Fibromyalgia; E03.9 Hypothyroidism, unspecified; Z90.89 Acquired absence of other organs; Z98.890 Other specified postprocedural states; Z90.49 Acquired absence of other specified parts of digestive tract; Z90.711 Acquired absence of uterus with remaining cervical stump; Z79.899 Other long term (current) drug therapy; Z79.51 Long term (current) use of inhaled steroids; Z86.2 Personal history of diseases of the blood and blood-forming organs and certain disorders involving the immune mechanism

== ENCOUNTER → 2018-10-31 | Outpatient (CLI) | payer BC, OTHER | LOC: NEUROMAIN 07:08 | PROVIDERS: ATTEND Otolaryngology | DX: Z53.9 Procedure and treatment not carried out, unspecified reason (principal) ==

== ENCOUNTER → 2019-01-24 | Outpatient (CLI) | payer BC, OTHER ==
[2019-01-24 13:26] VITALS: BP 137/90; PULSE 89; RESP 16
--- NOTE | 2019-01-24 14:14 | P.PAINCN ---
History of Present Illness - Reason for Consult Consult date: 01/24/19 - History of Present Illness This is initial consultation visit for this 33 years old female with a chronic history of severe neck pain and headaches started 2 years ago, and she referred to [facility] for occipital nerve block, patient reported that intensity of the pain and headache interfere with the quality of life, she tried multiple medications with adequate none of them helped to control the headaches/the pain, also patient complaining of severe low back pain which is increased with any activity, the pain is constant and localized in the low back area and radiated to the posterior aspect of her legs, she denies any fever or night sweats, she tried multiple medications for her lupus without any significant improvement. Past Medical History Past Medical History: Asthma, Deep Vein Thrombosis (DVT), Fibromyalgia, GERD/Reflux, Liver Disease, Rheumatoid Arthritis (RA), Thyroid Disorder Additional Past Medical History / Comment(s): SJOGREN'S, LUPUS, RAYNAUDS, HX LIVER TOXICITY, PANCREATITIS, FATTY LIVER, HX THRUSH, ANEMIA, PLEURISY, PROTEIN IN KIDNEYS., SEIZURE (X1 6 MONTHS AGO), STATES TOLD FLUID ON BRAIN., HEADACHES, STATES TESTS POSITIVE FOR TB BUT X-RAYS NEGATIVE. History of Any Multi-Drug Resistant Organisms: None Reported Past Surgical History: Appendectomy, Cholecystectomy, Ear Surgery, Hernia Repair, Hysterectomy, Tonsillectomy Additional Past Surgical History / Comment(s): ABSCESS after RUPTURED APPENDECTOMY, BENIGN TUMORS REMOVED FROM NECK AND MOUTH, hiatal hernia, plastic surgery on lower lip, TITANIUM screw insterted in mouth, Mediport 2014 & REMOVED., sliding hernia surgery with mesh., Back procedures, vein stripping left leg, spondylosis, Left cleft cyst Past Anesthesia/Blood Transfusion Reactions: Previous Problems w/ Anesthesia Additional Past Anesthesia/Blood Transfusion Reaction / Comm: States heart rate very sensitive to anesthesia r/t lupus, occ drop in BP, "I USUALLY NEED STEROIDS TO COME OUT OF SURGERY" Smoking Status: Current every day smoker - Past Family History Mother Family Medical History: No Reported History Medications and Allergies Home Medications Medication Instructions Recorded Confirmed Type Biotin 5 mg PO DAILY 12/11/13 01/24/19 History Cholecalciferol [Vitamin D3 (25 1,000 unit PO DAILY 06/18/15 01/24/19 History Mcg = 1000 Iu)] methylPREDNISolone 8 mg PO DAILY 06/30/15 01/24/19 History DULoxetine HCL [Cymbalta] 60 mg PO DAILY 07/31/18 01/24/19 History Levothyroxine Sodium [Synthroid] 112 mcg PO DAILY 07/31/18 01/24/19 History Dextroamphetamine/Amphetamine 10 mg PO TID 09/20/18 01/24/19 History [Adderall] rOPINIRole HCL [Requip] 0.5 mg PO HS 09/20/18 01/24/19 History Aspirin [Adult Low Dose Aspirin EC] 81 mg PO DAILY 01/21/19 01/24/19 History Belimumab [Benlysta] 1 dose SQ TH 01/21/19 01/24/19 History Fluticasone Nasal [place] [Flonase 1 spray EA NOSTRIL DAILY PRN 01/21/19 01/24/19 History Nasal [place]] Ibuprofen [Motrin Ib] 600 mg PO DIRECTED PRN 01/21/19 01/24/19 History Omeprazole [PriLOSEC] 40 mg PO DAILY 01/21/19 01/24/19 History Ondansetron HCl [Zofran] 8 mg PO Q8HR PRN 01/21/19 01/24/19 History Quinicline Compound 1 dose PO DAILY 01/21/19 01/24/19 History Allergies Allergy/AdvReac Type Severity Reaction Status Date / Time Penicillins Allergy Rash/Hives Verified 01/24/19 13:06 leflunomide [From Arava] AdvReac liver Verified 01/24/19 13:06 toxicity Physical Exam Vitals: Vital Signs Pulse Resp BP Pulse Ox 01/24/19 13:12 89 16 137/90 98 Social history : smoker , NO ETOH , NO Illegal drugs use . Review of Systems : - Constitutional : no chills , no fever , no night sweats , - Ears : no ear discharge , no change in hearing -Nose, Mouth ,Throat ; no bleeding gums, no sore throat , no epistaxis , -Cardiovascular : Denies chest pain, , no orthopnea , no palpitation -Respiratory : Denies cough , no dyspnea , no hemoptysis -Gastrointestinal : no change in bowel habits , no coffee-ground emesis . -Genitourinary : No hematuria , no discharge , no incontinence, -Musculoskeletal : No gait dysfunction , report low back pain - Neurological : Reports headache no ataxia , no tremor , no sezure , -Psychatric : no suicidal ideation no hallucination - Endocrine : no cold intolerence , no polyuria , no polydypsia , -Hematologic : no easy bleeding , no easy brusing , -Allergic / immm : Lupus -Integumentary : no brttle nails , no change hair / nails , no foot/leg ulcers . Physical Examinations : -Constitutional : Cooperative , not in acute distress . -HEENT : nech ; supple , no Lymphadenopathy , no Thyromegaly , :eyes : no icterus, no photophobia . : ENT normal oropharynx , no Thrush - Respiratory : Chest clear to auscultations Bilaterally , no wheezing . - Cardiovascular : regular rate and rhythem , S1 , S2 , no S3 , no S4. - Gastrointestina l: abdomen soft no tenderness , no organomegally . - Genitourinary : Defferred . -Integumentary : No cellulitis , no ulcers , normal skin turgor , no cyanotic . - neurologic : Cranial nerve II to XII intact , no focal neurological deffecit -psychatric : alert , oriented X 3 , appropriate affect , intact judgment and insight . -Lymphatic : no Lymphadenopathy. - musculoskeltal: normal gait Cervical Spine motor stregnth in the deltoid and biceps, normal right side , normal Left side motor stregnth biceps and the wrist extensors normal right side ,normal left side . motor stregnth in the triceps muscle . normal Right side , normal Left side deep tendon reflexes normal at the biceps , normal at Brachioradialis , normal at triceps. Spurling test = positive Neck distraction test= positive Castle sign= positive positive cervical facet loading test . Severe tenderness over the occipital nerve bilaterally R>L Lumber spine moter stegnth lower extremities ,thigh and legs 5/5 Right side , 5/5 Left side deep tendon reflexes : normal Knee Jerk , normal ankle Jerk positive lumber facet Loading Test Range of motion of the lumbar spine Flexion 30 degrees, extension 10 degrees strait leg raising test , positive at degree Fabere test positive RT and positive LT . Severe tenderness over the sacroiliac joint on the right side, and on the left side Gaenslen test= positive bilaterally Seated flexion test= positive bilaterally Assessment and Plan Plan: Assessment and plan=1-occipital neuralgia. 2-cervicogenic headache. 3-cervical spondylosis with cervical facet arthropathy. 4-lumbar spondylosis with lumbar facet arthropathy. Patient could benefit from bilateral occipital nerve block , procedure risk and benefits and alternatives discussed with patient she agreed with the preceding, if patient continued to have pain af ter the occipital nerve block and we will order MRI of the cervical spine, and considering medial branch block, and possible RFA of the medial branch, treatment plan discussed with the patient and she agreed with proceeding Time with Patient: Greater than 30 PQRS Measure Charge Sheet Measure #130: Documentation of Current Meds in Medical Chart: Patient's medications documented in chart Measure #226: Tobacco Use: Screen & Cessation Intervention: Pt screened for tobacco use AND intervention given Measure #111: Pneumonia Vaccination: Pneumococcal vaccine administered or previously received Measure #47: Advance Care Plan: Advance care planning discussed & documented, pt chose/unable to give Measure #412: Opioid Treatment Agreement: No documentation of signed opioid treatment agreement Measure #408: Opioid Therapy Follow-up Evaluation: Patient had NO f/u eval minimum every 3 months during opioid therapy Measure #317: Preventitive Care & Scrn High Bld Press & F/U: Normal blood pressure, f/u not required Measure #128: Body Mass Index (BMI) Screening & Follow-up: BMI documented within normal parameters Measure #131: Pain Assessment & Follow-up: Pain positive & plan documented, Follow-up scheduled Measure #431: Unhealthy Alcohol Use Preventative Care & Scrn: Patient not identified as an unhealthy alcohol user PQRS Narrative: Smoking Status Current every day smoker Blood Pressure 137/90 Pain Intensity [Frontal] 5 Pain Intensity [Back] 8 Scale Used Numeric (1 - 10) Hx Alcohol Use (MH) No Home Medications: Ambulatory Orders Biotin 5 mg PO DAILY 12/11/13 Cholecalciferol [Vitamin D3 (25 Mcg = 1000 Iu)] 1,000 unit PO DAILY 06/18/15 methylPREDNISolone 8 mg PO DAILY 06/30/15 DULoxetine HCL [Cymbalta] 60 mg PO DAILY 07/31/18 Levothyroxine Sodium [Synthroid] 112 mcg PO DAILY 07/31/18 Dextroamphetamine/Amphetamine [Adderall] 10 mg PO TID 09/20/18 rOPINIRole HCL [Requip] 0.5 mg PO HS 09/20/18 Aspirin [Adult Low Dose Aspirin EC] 81 mg PO DAILY 01/21/19 Belimumab [Benlysta] 1 dose SQ TH 01/21/19 Fluticasone Nasal [place] [Flonase Nasal [place]] 1 spray EA NOSTRIL DAILY PRN 01/21/19 Ibuprofen [Motrin Ib] 600 mg PO DIRECTED PRN 01/21/19 Omeprazole [PriLOSEC] 40 mg PO DAILY 01/21/19 Ondansetron HCl [Zofran] 8 mg PO Q8HR PRN 01/21/19 Quinicline Compound 1 dose PO DAILY 01/21/19
== END ==
LOC: PNWHC3 12:57
PROVIDERS: ATTEND Specialist
DX: M47.812 Spondylosis without myelopathy or radiculopathy, cervical region (principal); M47.816 Spondylosis without myelopathy or radiculopathy, lumbar region; M46.96 Unspecified inflammatory spondylopathy, lumbar region; M46.92 Unspecified inflammatory spondylopathy, cervical region; R51 Headache; J45.909 Unspecified asthma, uncomplicated; M79.7 Fibromyalgia; K21.9 Gastro-esophageal reflux disease without esophagitis; M06.9 Rheumatoid arthritis, unspecified; E07.9 Disorder of thyroid, unspecified; K76.9 Liver disease, unspecified; M54.81 Occipital neuralgia; F17.200 Nicotine dependence, unspecified, uncomplicated; Z71.6 Tobacco abuse counseling; Z79.899 Other long term (current) drug therapy; Z79.82 Long term (current) use of aspirin; Z88.0 Allergy status to penicillin; Z88.8 Allergy status to other drugs, medicaments and biological substances; Z86.718 Personal history of other venous thrombosis and embolism
CPT/HCPCS: 99211

== ENCOUNTER 2019-02-12 06:35 | Day surgery (SDC) | payer BC, OTHER ==
[2019-02-11 12:04] VITALS: BMI 22.6
[2019-02-12 07:02] VITALS: RESP 16; TEMP 98
[2019-02-12 07:16] LABS: Glucose,Whole Blood 99 mg/dL (75-99)
--- NOTE | 2019-02-12 07:56 | P.PCN ---
Date of Procedure: 02/12/19 Procedure(s) Performed: Pre-operative diagnosis: Bilateral occipital neuralgia Post Operative Diagnosis same Procedure: Bilateral occipital nerve blocks ANESTHESIA: none EBL: Minimal PROCEDURE INDICATION: The patient with neck pain and headache secondary to occipital neuralgia unresponsive to conservative treatments. PROCEDURE DESCRIPTION / TECHNIQUE: The patient was seen and identified in the preoperative area. Risks, benefits, complications, and alternatives were discussed with the patient, the patient agreed to proceed with the procedure and signed the consent. IV was not started. Vital signs remained stable throughout the procedure. Patient was taken to the OR and time out was completed. The patient was placed in the seated position facing the procedure table. The cervical area and bilateral occiptial area were prepped with alcohol swab. Vital signs were closely monitored during the procedure. The bilateral occiptal ridge was palpated and was then accessed with a 25 G needle. Then after negative aspiration, 2.5 ml of the block solution containing 5 ml of Buvicaine 0.5% mg was injected. Needle was withdrawn intact. Patient tolerated procedure well. No acute complications.
[2019-02-12 08:14] VITALS: BP 108/71; PULSE 52
[2019-02-12] MEDS ORDERED: LACTATED RINGERS 1,000 ML IV SCH (08:30)
== END 2019-02-12 08:27 | disposition home or self-care (01) ==
LOC: ORPAIN 06:35
PROVIDERS: ATTEND Anesthesiology
DX: M54.81 Occipital neuralgia (principal); M47.812 Spondylosis without myelopathy or radiculopathy, cervical region; M47.816 Spondylosis without myelopathy or radiculopathy, lumbar region; M32.9 Systemic lupus erythematosus, unspecified; J45.909 Unspecified asthma, uncomplicated; M79.7 Fibromyalgia; K21.9 Gastro-esophageal reflux disease without esophagitis; M06.9 Rheumatoid arthritis, unspecified; E07.9 Disorder of thyroid, unspecified; M35.00 Sjogren syndrome, unspecified; I73.00 Raynaud's syndrome without gangrene; F17.200 Nicotine dependence, unspecified, uncomplicated; Z79.82 Long term (current) use of aspirin; Z79.890 Hormone replacement therapy; Z79.1 Long term (current) use of non-steroidal anti-inflammatories (NSAID); Z79.52 Long term (current) use of systemic steroids; Z79.899 Other long term (current) drug therapy; Z86.718 Personal history of other venous thrombosis and embolism; Z87.19 Personal history of other diseases of the digestive system; Z87.448 Personal history of other diseases of urinary system; Z86.2 Personal history of diseases of the blood and blood-forming organs and certain disorders involving the immune mechanism; Z86.69 Personal history of other diseases of the nervous system and sense organs; Z90.49 Acquired absence of other specified parts of digestive tract; Z90.710 Acquired absence of both cervix and uterus; Z98.890 Other specified postprocedural states; Z88.0 Allergy status to penicillin; Z88.8 Allergy status to other drugs, medicaments and biological substances

== ENCOUNTER 2019-02-14 18:46 | Emergency (ER) | payer BC, OTHER ==
[2019-02-14 18:58] VITALS: TEMP 98.1
[2019-02-14] MEDS ORDERED: DEXAMETHASONE SOD PHOSPHATE 10 MG/ML 1 ML VIAL IV STA (20:07)
[2019-02-14] MEDS ORDERED: HYDROmorphone 1 MG/ML 1 ML SYRINGE IVP STA ×3 (20:07→23:11)
[2019-02-14] MEDS ORDERED: ONDANSETRON 4 MG/2 ML VIAL IVP STA (20:07)
[2019-02-14] MEDS ORDERED: SODIUM CHLORIDE 0.9% 1,000 ML IV STA (20:07)
--- NOTE | 2019-02-14 20:14 | ED ---
General Adult HPI - General Chief complaint: Upper Respiratory Infection Stated complaint: headache, chest pain Time Seen by Provider: 02/14/19 19:23 Source: patient Mode of arrival: ambulatory Limitations: no limitations - History of Present Illness Initial comments: Dictation was produced using Mi[employer] dictation software. please excuse any grammatical, word or spelling errors. Chief Complaint:-year-old female past medical history fibromyalgia, chronic headaches, lupus presents with headache, cough, generalized body pain, neck pain and abdominal pain. History of Present Illness: An is a 33-year-old female she has multiple complaints today. Patient reports that she has a history of lupus. Patient recently had steroid injections performed at the mastoid and cervical spine area for her chronic pain. Patient's pain doctor is neurologist Dr. Quintero who did perform the recent injections. Patient states that since today she's been having significant multi-body pain. Patient has history of fibromyalgia. Shows has a history of lupus. Patient has had symptoms like this that affected multiple organ systems more than once. She reports is typical of her lupus flares. The ROS documented in this emergency department record has been reviewed and confirmed by me. Those systems with pertinent positive or negative responses have been documented in the HPI. All other systems are other negative and/or noncontributory. PHYSICAL EXAM: General Impression: Alert and oriented x3, not in acute distress, tearful, hysterical HEENT: Normocephalic atraumatic, extra-ocular movements intact, pupils equal and reactive to light bilaterally, mucous membranes moist. Cardiovascular: Heart regular rate and rhythm, S1&S2 audible, no murmurs, rubs or gallops Chest: Lungs clear to auscultation bilaterally, no rhonchi, no wheeze, no rales Abdomen: Bowel sounds present, abdomen soft, non-tender, non-distended, no organomegaly Musculoskeletal: Pulses present and equal in all extremities, no peripheral edema Motor: no focal deficits noted Neurological: CN II-XII grossly intact, no focal motor or sensory deficits noted Skin: Intact with no visualized rashes Psych: Normal affect and mood ED course: 33-year-old female past medical history of lupus presents with multiorgan complaints. She has history of lupus reports that her symptoms today are typical of her lupus flares. On arrival are within acceptable limits .Laboratory evaluation obtained. CBC unremarkable. Metabolic panel is unremarkable. Lipase is 306, urine hCG is negative. Chest x-ray is unremarkable. Patient's symptoms are reflective of her usual chronic pain symptoms. Patient given IV analgesia with improvement of symptoms. Patient is agreeable to discharge. She is told to follow-up with her PCP. There is concern that patient is exhibiting drug-seeking behavior. Patient requesting an today anxiety medications. She is told that did not fill comfortable writing prescriptions for this given her clinical setting. Patient given more IV analgesia. Patient observed and is cleared for discharge. She is told follow up with her primary care physician upon discharge. - Related Data Home Medications Medication Instructions Recorded Confirmed Biotin 5 mg PO DAILY 12/11/13 02/14/19 Cholecalciferol [Vitamin D3 (25 1,000 unit PO DAILY 06/18/15 02/14/19 Mcg = 1000 Iu)] methylPREDNISolone 8 mg PO DAILY 06/30/15 02/14/19 DULoxetine HCL [Cymbalta] 60 mg PO DAILY 07/31/18 02/14/19 Levothyroxine Sodium [Synthroid] 112 mcg PO DAILY 07/31/18 02/14/19 Dextroamphetamine/Amphetamine 10 mg PO TID@0700,1200,1700 09/20/18 02/14/19 [Adderall] rOPINIRole HCL [Requip] 0.25 - 0.5 mg PO HS 09/20/18 02/14/19 Aspirin [Adult Low Dose Aspirin EC] 81 mg PO DAILY 01/21/19 02/14/19 Belimumab [Benlysta] 200 mg SQ TH 01/21/19 02/14/19 Fluticasone Nasal [place] [Flonase 1 spray EA NOSTRIL DAILY PRN 01/21/19 02/14/19 Nasal [place]] Ibuprofen [Motrin Ib] 600 mg PO Q6H PRN 01/21/19 02/14/19 Quinicline Compound 1 dose PO DAILY 01/21/19 02/14/19 Buprenorphine HCl [Belbuca] 300 mcg BC Q12H 02/14/19 02/14/19 Omeprazole 20 mg PO DAILY 02/14/19 02/14/19 Ondansetron [Zofran ODT] 4 mg PO Q8H PRN 02/14/19 02/14/19 Pramipexole [Mirapex] 0.125 - 0.25 mg PO HS 02/14/19 02/14/19 Allergies Allergy/AdvReac Type Severity Reaction Status Date / Time Penicillins Allergy Rash/Hives Verified 02/12/19 07:02 leflunomide [From Arava] AdvReac liver Verified 02/12/19 07:02 toxicity Review of Systems ROS Statement: Those systems with pertinent positive or pertinent negative responses have been documented in the HPI. ROS Other: All systems not noted in ROS Statement are negative. Past Medical History Past Medical History: Asthma, Deep Vein Thrombosis (DVT), Fibromyalgia, GERD/Reflux, Liver Disease, Rheumatoid Arthritis (RA), Thyroid Disorder Additional Past Medical History / Comment(s): SJOGREN'S, LUPUS, RAYNAUDS, HX LIVER TOXICITY, PANCREATITIS, FATTY LIVER, HX THRUSH, ANEMIA, PLEURISY, PROTEIN IN KIDNEYS., SEIZURE (X1 6 MONTHS AGO), STATES TOLD FLUID ON BRAIN., HEADACHES, STATES TESTS POSITIVE FOR TB BUT X-RAYS NEGATIVE. History of Any Multi-Drug Resistant Organisms: None Reported Past Surgical History: Appendectomy, Cholecystectomy, Ear Surgery, Hernia Repair, Hysterectomy, Tonsillectomy Additional Past Surgical History / Comment(s): ABSCESS after RUPTURED APPENDECTOMY, BENIGN TUMORS REMOVED FROM NECK AND MOUTH, hiatal hernia, plastic surgery on lower lip, TITANIUM screw insterted in mouth, Mediport 2014 & R EMOVED., sliding hernia surgery with mesh., Back procedures, vein stripping left leg, spondylosis, Left cleft cyst Past Anesthesia/Blood Transfusion Reactions: Previous Problems w/ Anesthesia Additional Past Anesthesia/Blood Transfusion Reaction / Comment(s): States heart rate very sensitive to anesthesia r/t lupus, occ drop in BP, "I USUALLY NEED STEROIDS TO COME OUT OF SURGERY" Past Psychological History: Anxiety, Depression Smoking Status: Current every day smoker - Past Family History Mother Family Medical History: No Reported History General Exam Limitations: no limitations Course Vital Signs 02/14/19 02/14/19 02/14/19 18:56 20:58 21:09 Temperature 98.1 F Pulse Rate 77 67 Respiratory 18 16 16 Rate Blood Pressure 133/83 112/65 O2 Sat by Pulse 98 100 Oximetry 02/14/19 22:00 Temperature Pulse Rate Respiratory 18 Rate Blood Pressure O2 Sat by Pulse Oximetry Medical Decision Making - Lab Data Result diagrams: 02/14/19 20:19 02/14/19 20:19 Lab Results 02/14/19 02/14/19 02/14/19 Range/Units 20:19 20:19 21:30 WBC 5.2 (3.8-10.6) k/uL RBC 4.24 (3.80-5.40) m/uL Hgb 12.6 (11.4-16.0) gm/dL Hct 37.7 (34.0-46.0) % MCV 89.0 (80.0-100.0) fL MCH 29.7 (25.0-35.0) pg MCHC 33.4 (31.0-37.0) g/dL RDW 15.0 (11.5-15.5) % Plt Count 298 (150-450) k/uL Neutrophils % 50 % Lymphocytes % 36 % Monocytes % 8 % Eosinophils % 3 % Basophils % 1 % Neutrophils # 2.6 (1.3-7.7) k/uL Lymphocytes # 1.9 (1.0-4.8) k/uL Monocytes # 0.4 (0-1.0) k/uL Eosinophils # 0.1 (0-0.7) k/uL Basophils # 0.0 (0-0.2) k/uL Sodium 142 (137-145) mmol/L Potassium 3.9 (3.5-5.1) mmol/L Chloride 108 H (98-107) mmol/L Carbon Dioxide 24 (22-30) mmol/L Anion Gap 10 mmol/L BUN 14 (7-17) mg/dL Creatinine 0.83 (0.52-1.04) mg/dL Est GFR (CKD-EPI)AfAm >90 (>60 ml/min/1.73 sqM) Est GFR (CKD-EPI)NonAf >90 (>60 ml/min/1.73 sqM) Glucose 110 H (74-99) mg/dL Calcium 9.0 (8.4-10.2) mg/dL Total Bilirubin 0.2 (0.2-1.3) mg/dL AST 17 (14-36) U/L ALT 14 (9-52) U/L Alkaline Phosphatase 42 (38-126) U/L Total Protein 7.7 (6.3-8.2) g/dL Albumin 4.3 (3.5-5.0) g/dL Lipase 306 H (23-300) U/L Urine HCG, Qual Not Detected (Not Detectd) Disposition Clinical Impression: Pain Disposition: HOME SELF-CARE Condition: Good Instructions (If sedation given, give patient instructions): Non- pharmacological Pain Management Therapies for Adults (ED) Is patient prescribed a controlled substance at d/c from ED?: No Referrals: Saran Perez MD [Primary Care Provider] - 1-2 days Time of Disposition: 23:13
[2019-02-14 20:47] LABS: Basophils % (A) 1 %; Eosinophils # (A) 0.1 k/uL (0-0.7); Eosinophils % (A) 3 %; HCT 37.7 % (34.0-46.0); HGB 12.6 gm/dL (11.4-16.0); Lymphocytes # (A) 1.9 k/uL (1.0-4.8); Lymphocytes % (A) 36 %; MCH 29.7 pg (25.0-35.0); MCHC 33.4 g/dL (31.0-37.0); Mean Platelet Volume 6.8; Monocytes # (A) 0.4 k/uL (0-1.0); Monocytes % (A) 8 %; Neutrophils # (A) 2.6 k/uL (1.3-7.7); Neutrophils % (A) 50 %; Platelet Count 298 k/uL (150-450); RBC 4.24 m/uL (3.80-5.40); WBC 5.2 k/uL (3.8-10.6)
[2019-02-14 21:05] LABS: ALT 14 U/L (9-52); AST 17 U/L (14-36); African American GFR (CKD) >90 (>60 ml/min/1.73 sqM); Albumin 4.3 g/dL (3.5-5.0); Alkaline Phosphatase 42 U/L (38-126); Anion Gap 10 mmol/L; Blood Urea Nitrogen 14 mg/dL (7-17); Carbon Dioxide 24 mmol/L (22-30); Chloride 108 mmol/L (98-107); Glucose 110 mg/dL (74-99); Lipase 306 U/L (23-300); Potassium 3.9 mmol/L (3.5-5.1); Sodium 142 mmol/L (137-145); Total Bilirubin 0.2 mg/dL (0.2-1.3); Total Protein 7.7 g/dL (6.3-8.2)
[2019-02-14 21:11] VITALS: BP 112/65
--- NOTE | 2019-02-14 22:14 | XR ---
EXAM: XR Chest, 2 Views CLINICAL HISTORY: ITS.REASON XR Reason: Pain TECHNIQUE: Frontal and lateral views of the chest. COMPARISON: Chest radiograph on 09/20/2018 FINDINGS: Hardware: None. Lungs/pleura: Normal. No focal consolidation. No pleural effusion or pneumothorax. Heart/mediastinum: Normal. No cardiomegaly. Soft tissues: Unremarkable. Bones: No acute fracture. Upper abdomen: Cholecystectomy clips in the right upper quadrant. IMPRESSION: No acute disease identified.
[2019-02-14 23:37] VITALS: PULSE 72; RESP 16
== END 2019-02-14 23:30 | disposition home or self-care (01) ==
LOC: EC 18:46
DX: R51 Headache (principal); R10.9 Unspecified abdominal pain; M54.2 Cervicalgia; R05 Cough; G89.29 Other chronic pain; J45.909 Unspecified asthma, uncomplicated; K21.9 Gastro-esophageal reflux disease without esophagitis; E07.9 Disorder of thyroid, unspecified; F41.9 Anxiety disorder, unspecified; F32.9 Major depressive disorder, single episode, unspecified; F17.200 Nicotine dependence, unspecified, uncomplicated; Z79.890 Hormone replacement therapy; Z79.82 Long term (current) use of aspirin; Z79.899 Other long term (current) drug therapy; Z88.0 Allergy status to penicillin; Z88.8 Allergy status to other drugs, medicaments and biological substances; Z86.718 Personal history of other venous thrombosis and embolism; Z87.39 Personal history of other diseases of the musculoskeletal system and connective tissue
CPT/HCPCS: 36415; 80053; 83690; 85025; 81025; 71046; 99284; 96374; 96375 ×2; 96376 ×2; 96361 ×2; J1100; J2405; J1170

== ENCOUNTER → 2019-02-21 | Outpatient (CLI) | payer BC, OTHER ==
--- NOTE | 2019-02-22 11:02 | P.PAINPG ---
Subjective Progress Note Date: 02/21/19 This is A 33-year-old female with a chronic history of severe neck pain and headaches which started 2 years ago, and she referred to [facility] for occipital nerve block,which was performed on 02/12/2019. The patient reports that for the 12 hours following the procedure, her head was numb, however she did not experience an improvement in symptoms. In fact, she noted that her right ear pain was worse after the procedure. Her pain is primarily located in her right ear, which has been present for about 2 months, radiating to the right side of her neck into her trapezius muscle. She describes an intense throbbing in her ear. She has been diagnosed with right ear mastoiditis in the past and has undergone 5 rounds of antibiotics. She has been to see her ENT physician who informed her that he is not concerned for mastoiditis. She however states that her ear feels full, and the pain is similar to prior attacks of mastoiditis. She is also scheduled to see her neurologist. She has orders for MRI C-spine and brain that she will have done shortly. of note, the patient does have history of lupus. Patient reported that intensity of the pain and headache interfere with the quality of life, she tried multiple medications with adequate none of them helped to control the headaches/the pain. Review of systems is negative for chest pain, shortness of breath, new onset weakness, numbness/tingling, abdominal pain, malaise, fever, night sweats, chills, homicidal or suicidal ideation, or bowel or bladder incontinence. Physical exam: Vitals: Reviewed in EMR GENERAL: Well appearing, in no acute distress PSYCH: Mood and affect is appropriate. Awake, alert, and oriented SKIN: Skin color, texture, turgor normal, no rashes or lesions HEENT: Normocephalic, atraumatic. EOM intact CV: No pedal edema RESP: Respirations are unlabored, no audible wheezing GI: Abdomen non-distended MUSCULOSKELETAL: Bilateral upper extremity strength is normal and symmetric. No atrophy or tone abnormalities are noted. Neck: tenderness to palpation over the cervical paraspinous musclesbilaterally. Spurling negative, Axial Loading Test negative, Castle's sign negative. No obvious deformity or signs of trauma. Normal cervical lordotic curve and normal cervical spine range of motionstop tenderness over right mastoid area. Extremities: Peripheral joint ROM is full and pain free without obvious instability or laxity in all four extremities. No edema or skin discolorations noted. Gait: Gait is normal NEUR: Bilateral upper extremity coordination and muscle stretch reflexes are physiologic and symmetric. No loss of sensation is noted. Assessment and plan=1-occipital neuralgia. 2-cervicogenic headache. 3-cervical spondylosis with cervical facet arthropathy. Patient did not obtain benefit from bilateral occipital nerve block for more than 12 hours. I offered repeating the procedure with steroid, however the patient declined. Agent was instructed to obtain MRI cervical spine and brain ordered by her ENT physician. She will then follow up with her neurologist. If cervical MRI shows facet arthropathy or cervical degenerative disc disease, we can consider cervical medial branch workup. patient was counseled on the importance of smoking cessation as it relates to chronic pain. When necessary, after visits with neurology and ENT Objective - Vital Signs Vital signs: Vital Signs Temp Pulse 99 02/21/19 14:15 Resp 16 02/21/19 14:15 BP 125/85 02/21/19 14:15 Pulse Ox Intake & Output 02/21/19 02/22/19 02/22/19 18:59 06:59 18:59 Weight 54.431 kg PQRS Measure Charge Sheet Measure #130: Documentation of Current Meds in Medical Chart: Patient's medi cations documented in chart Measure #226: Tobacco Use: Screen & Cessation Intervention: Pt screened for tobacco use AND intervention given Measure #111: Pneumonia Vaccination: Pneumococcal vaccine administered or previously received Measure #47: Advance Care Plan: Advance care planning discussed & documented, pt chose/unable to give Measure #412: Opioid Treatment Agreement: No documentation of signed opioid treatment agreement Measure #317: Preventitive Care & Scrn High Bld Press & F/U: Normal blood pressure, f/u not required Measure #128: Body Mass Index (BMI) Screening & Follow-up: BMI documented within normal parameters Measure #131: Pain Assessment & Follow-up: Pain positive & plan documented, Follow-up PRN Measure #431: Unhealthy Alcohol Use Preventative Care & Scrn: Patient not ident ified as an unhealthy alcohol user PQRS Narrative: Smoking Status Current every day smoker Blood Pressure 125/85 Pain Intensity [Right Ear] 5 Scale Used Numeric (1 - 10) Hx Alcohol Use (MH) No Home Medications: Ambulatory Orders Biotin 5 mg PO DAILY 12/11/13 Cholecalciferol [Vitamin D3 (25 Mcg = 1000 Iu)] 1,000 unit PO DAILY 06/18/15 methylPREDNISolone 8 mg PO DAILY 06/30/15 DULoxetine HCL [Cymbalta] 60 mg PO DAILY 07/31/18 Levothyroxine Sodium [Synthroid] 112 mcg PO DAILY 07/31/18 Dextroamphetamine/Amphetamine [Adderall] 10 mg PO TID@0700,1200,1700 09/20/18 rOPINIRole HCL [Requip] 0.25 - 0.5 mg PO HS 09/20/18 Aspirin [Adult Low Dose Aspirin EC] 81 mg PO DAILY 01/21/19 Belimumab [Benlysta] 200 mg SQ TH 01/21/19 Fluticasone Nasal [place] [Flonase Nasal [place]] 1 spray EA NOSTRIL DAILY PRN 01/21/19 Ibuprofen [Motrin Ib] 600 mg PO Q6H PRN 01/21/19 Quinicline Compound 1 dose PO DAILY 01/21/19 Buprenorphine HCl [Belbuca] 300 mcg BC Q12H 02/14/19 Omeprazole 20 mg PO DAILY 02/14/19 Ondansetron [Zofran ODT] 4 mg PO Q8H PRN 02/14/19 Pramipexole [Mirapex] 0.125 - 0.25 mg PO HS 02/14/19 Cyclobenzaprine [Flexeril] 10 mg PO TID PRN 02/21/19 LORazepam [Ativan] 0.5 mg PO HS 02/21/19 Controlled Substance Measures - Controlled Substance Measures Is patient prescribed a controlled substance at discharge?: No
== END ==
CPT/HCPCS: 99211

== ENCOUNTER → 2019-02-28 | Outpatient (CLI) | payer BC, OTHER ==
--- NOTE | 2019-02-28 15:15 | SFUN ---
SLEEP CENTER FOLLOW UP NOTE DATE OF SERVICE: 02/28/2019 A 33-year-old lady who has been followed in the Sleep Center for treatment of narcolepsy and periodic limb movements. Patient is on treatment with Adderall 10 mg 3 times a day and with this regimen she still continued to feel sleepy. We are trying to get permission to get Provigil for the patient. We are in the process of preauthorization. Orange Sleepiness Scale today is 18. Not any side effects of Adderall at the present time with relationship to her heart or blood pressure. MEDICATIONS: Methyl prednisone, Prilosec, Zofran, Synthroid, Cymbalta, Requip, Adderall. PHYSICAL EXAM: Patient in no distress. BP 133/84, HR 92, RR 16, height 5, 1 inch, weight 102, body mass index 23, temperature 97.9, oxygen saturation 100%. HEENT PERRLA, EOMI, evaluation of oropharynx showed tongue protrudes midline. Neck Supple, no JVD. Thyroid is not palpable. LUNGS Clear to percussion and to auscultation. Good air exchange. No wheezing or rhonchi. HEART S1, S2 regular. No murmurs, gallops, or rubs. ABDOMEN Soft and nontender. Bowel sounds are present. No organomegaly appreciated. EXTREMITIES No clubbing or cyanosis. BABY REGISTRY SALES CONSULTANT Awake, alert, and oriented X3. Cranial nerves 2 to 7 intact. There is no fasciculation or atrophy. noted. No focal deficits observed. IMPRESSION: 1. Possible narcolepsy, pathological sleepiness on MSLT. 2. Periodic limb movements. 3. Restless legs syndrome on control with treatment on Requip. 4. History of recent pancreatitis. Biopsy was done, patient does not know results yet. 5. Status post recent leg surgery for venous problem. 6. History of systemic lupus erythematosus in 2003. 7. History of Sjogren syndrome. 8. Acid reflux. 9. Hypothyroidism. 10.Status post partial hysterectomy. 11.Status post appendectomy. 12.Status post cholecystectomy. 13.History of fibromyalgia. PLAN: 1. I will increase dose of Adderall to 15 mg in the morning and at the middle of the day and continue 10 mg in the late part of the day. 2. We are working for preauthorization for Provigil. Patient should start treatment with Provigil with smallest dose, titrating dose for correction of sleepiness. 3. Sleep hygiene with regular time in bed for 7-1/2 - 8 hours. 4. Daytime naps permitted. 5. Precautions related to driving. No driving if feeling any sleepiness. Thank you very much for allowing me to participate in the management of your patient. Sincerely, Carlito Waterman MD, PhD, FAASM Diplomat of [place] [employer] [place] [employer] Rail Operations Controller of [facility] [place] MMODL / IJN: [id number] /
== END | disposition home or self-care (01) ==

== ENCOUNTER → 2019-07-04 | Outpatient (CLI) | payer BC, OTHER ==
--- NOTE | 2019-07-04 17:16 | PN ---
PROGRESS NOTE DATE OF SERVICE: 07/04/2019 33-year-old lady who has been followed in Sleep Center for treatment of significant excessive daytime sleepiness, confirmed by MSLT, possible narcolepsy. One sleep onset REM periods have been seen during MSLT. Presently the patient is on treatment with Adderall 15 mg in the morning and 15 mg in the middle of the day and 10 mg in the evening. The patient is also on modafinil 200 mg in the morning. With this regimen, patient continued to feel sleepiness. Dustin Sleepiness Scale today is 20. Other medications include Methyl prednisolone, Prilosec, Zofran, Synthroid, Requip. PHYSICAL EXAM: Patient in no distress. Looks sleepy. Yawning. BP 126/76, HR 81, RR 14, height 5 feet 1-1/2 inches. Weight 131.2, BMI 24.3, temperature 98.1, oxygen saturation at room air 98%. NECK: Supple, no JVD. Thyroid is not palpable. LUNGS: Clear to percussion and to auscultation. Good air exchange. No wheezing or rhonchi. HEART: S1, S2 regular. No murmurs, gallops, or rubs. ABDOMEN: Soft and nontender. Bowel sounds are present. No organomegaly appreciated. EXTREMITIES: No clubbing or cyanosis. SURGICAL BRACE MAKER: Awake, alert, and oriented X3. Cranial nerves 2 to 7 intact. There is no fasciculation or atrophy. noted. No focal deficits observed. IMPRESSION: 1. Narcolepsy without cataplexy. Pathological sleepiness on MSLT with 1 sleep onset REM. Improved on Adderall with modafinil but the patient continues to feel sleepiness during the day, looks sleepy even during physical exam. 2. Periodic limb movements. 3. Restless legs syndrome. 4. History of pancreatitis. 5. History of leg surgery for venous problems. 6. History of SLE from 2003. 7. History of Sjogren syndrome. 8. Acid reflux. 9. Hypothyroidism. 10.Status post partial hysterectomy. 11.Status post appendectomy. 12.Status post cholecystectomy. 13.History of fibromyalgia. 14.History of recent ear infection with mastoiditis. PLAN: 1. Patient will continue to use Adderall with the same dose. Modafinil will be slowly increased up to 400 mg because patient continued to feel sleepiness during the day. 2. Sleep hygiene with regular time in bed for at least 8-9 hours. 3. Daytime naps permitted. 4. No driving if feeling sleepiness. Thank you very much for allowing me to participate in management of your patient. Sincerely, Carlito Waterman MD, PhD, FAASM Diplomat of [place] [employer] [employer] Tub Mender of [facility] [place] MMODL / JENN: [id number] /
== END | disposition home or self-care (01) ==
LOC: SLEEP 14:54
PROVIDERS: ATTEND Internal Medicine
DX: G47.33 Obstructive sleep apnea (adult) (pediatric) (principal); G47.61 Periodic limb movement disorder; G25.81 Restless legs syndrome; K21.9 Gastro-esophageal reflux disease without esophagitis; E03.9 Hypothyroidism, unspecified; Z90.49 Acquired absence of other specified parts of digestive tract; Z87.19 Personal history of other diseases of the digestive system

== ENCOUNTER → 2019-09-19 | Outpatient (CLI) | payer BC ==
--- NOTE | 2019-09-19 12:09 | SFUN ---
SLEEP CENTER FOLLOW UP NOTE DATE OF SERVICE: 09/19/2019 This 33-year-old lady had been followed in sleep center for treatment of narcolepsy. Presently patient is on treatment with Adderall 20 mg in the morning, 20 mg in the middle of the day and 10 mg on the second part of the day. She feels better, but continued to feel tiredness and sleepiness. Today, her Trail Sleepiness Scale is 21. She tried modafinil 200 mg. I did not feel significant difference with that. Insulins did not permit her to take a higher dose of 400 mg of modafinil. MEDICATIONS: Other medications include Synthroid 150 mcg daily now. The patient was found that her level of hormones decreased and the dose of Synthroid was increased. PHYSICAL EXAMINATION: During physical exam, patient in no distress. VITAL SIGNS: BP 124/79, HR 72, RR 16, height 5 feet 1-1/2 inches, weight 125 pounds, body mass index 23.2, temperature 97.6, oxygen saturation at room air 100%. HEENT: PERRLA, EOMI, evaluation of oropharynx showed tongue protrudes midline. NECK: Supple, no JVD. Thyroid is not palpable. LUNGS: Clear to percussion and to auscultation. Good air exchange. No wheezing or rhonchi. HEART: S1, S2 regular. No murmurs, gallops, or rubs. ABDOMEN: Soft and nontender. Bowel sounds are present. No organomegaly appreciated. EXTREMITIES: No clubbing or cyanosis. SUPERVISOR PLATE PASTING: Awake, alert, and oriented X3. Cranial nerves 2 to 7 intact. There is no fasciculation or atrophy. noted. No focal deficits observed. IMPRESSION: 1. Narcolepsy without cataplexy, improved on Adderall but patient still continued to feel significant sleepiness. 2. Period limb movements. 3. Restless legs syndrome. 4. History of pancreatitis. 5. History of leg surgery for venous problems. 6. History of systemic lupus erythematosus from 2003. 7. History of Sjogren syndrome. 8. Hypothyroidism. 9. Acid reflux. 10.Status post partial hysterectomy. 11.Status post appendectomy. 12.Status post cholecystectomy. 13.History of fibromyalgia. 14.History of ear infection with mastoiditis. PLAN: 1. Patient will continue to take Adderall 20 mg in the morning, 20 mg in the middle of the day and 10 mg on the second part of the day. 2. Prescription for Nuvigil 250 mg one tablet in the morning. 3. Sleep hygiene with regular time in bed for at least 7-1/2 to 8 hours. 4. Daytime naps permitted. 5. No driving if feeling any sleepiness. Thank you very much for allowing me to participate in management of your patient. Sincerely, Carlito Waterman MD, PhD, FAASM Diplomat of [place] [employer] [place] [employer] Dry Cell And Battery Assembler of [facility] [place] MMODL / IJN: [id number] /
== END | disposition home or self-care (01) ==
LOC: SLEEP 10:49
PROVIDERS: ATTEND Internal Medicine
DX: G47.419 Narcolepsy without cataplexy (principal); G47.61 Periodic limb movement disorder; G25.81 Restless legs syndrome; E03.9 Hypothyroidism, unspecified; K21.9 Gastro-esophageal reflux disease without esophagitis; Z87.19 Personal history of other diseases of the digestive system; Z86.2 Personal history of diseases of the blood and blood-forming organs and certain disorders involving the immune mechanism; Z90.711 Acquired absence of uterus with remaining cervical stump; Z90.49 Acquired absence of other specified parts of digestive tract; Z87.39 Personal history of other diseases of the musculoskeletal system and connective tissue; Z86.69 Personal history of other diseases of the nervous system and sense organs; Z98.890 Other specified postprocedural states; Z79.890 Hormone replacement therapy; Z79.899 Other long term (current) drug therapy

== ENCOUNTER → 2020-01-09 | Outpatient (CLI) | payer BC ==
--- NOTE | 2020-01-09 23:16 | SFUN ---
SLEEP CENTER FOLLOW UP NOTE DATE OF SERVICE: 01/09/2020 This patient is a 34-year-old lady who has been followed in Sleep Center for treatment of narcolepsy. The patient continues to take Adderall, and she also was started on treatment with Nuvigil. With Nuvigil she feels significant improvement of her symptoms of excessive daytime sleepiness, but then she developed a rash on the body and changes of the lip while taking Nuvigil. [place] Sleepiness Scale today is 21. At present the patient is taking Adderall 20 mg in the morning, in the middle of the day, and in the second part of the day she is taking 10 mg. Other medications include Synthroid, Zofran, Prilosec, vitamin D3. PHYSICAL EXAMINATION: GENERAL: A pleasant patient in no distress. VITAL SIGNS: BP 123/73, HR 78, RR 16, height 5-1/2. Weight 123, body mass index 22.2, temperature 98.3, oxygen saturation at room air 100%. HEENT: PERRLA, EOMI. Evaluation of oropharynx showed tongue protrudes midline. Some scaling of her lips. NECK: Supple. No JVD. Thyroid is not palpable. LUNGS: Clear to percussion and to auscultation. Good air exchange. No wheezing or rhonchi. HEART: S1, S2 regular. No murmurs, gallops or rubs. ABDOMEN: Soft and nontender. Bowel sounds are present. No organomegaly. EXTREMITIES: No clubbing or cyanosis. CARDIAC REHAB NURSE: Awake, alert, and oriented X3. Cranial nerves 2 to 7 intact. There is no fasciculation or atrophy. noted. No focal deficits observed. IMPRESSION: 1. Narcolepsy. 2. Alertness improved on Nuvigil, but patient developed possible allergic reaction to Nuvigil. 3. History of periodic limb movements. 4. History of restless legs syndrome. 5. History of pancreatitis. 6. History of leg venous problems, status post surgical treatment. 7. History of systemic lupus erythematosus in 2003. 8. History of Sjogren syndrome. 9. Hypothyroidism. 10.Acid reflux. 11.Status post partial hysterectomy. 12.Status post appendectomy. 13.Status post cholecystectomy. 14.History of fibromyalgia. 15.History of ear infection with mastoiditis. PLAN: 1. Patient stopped taking Nuvigil. 2. The patient will continue to take Adderall 20 mg 3 times a day. Dose of Adderall was maximized to FDA approved because she continued to have some sleepiness. 3. Sleep hygiene with regular time in bed for 7-1/2 to 8 hours. 4. Daytime naps permitted. 5. Extreme precautions for driving. No driving if feeling any sleepiness. Thank you very much for allowing me to participate in the management of your patient. Sincerely, Carlito Waterman MD, PhD, FAASM Diplomat of [place] [employer] [place] [employer] Construction Foreman of [facility] [place] MMODL / IJN: [id number] /
== END | disposition home or self-care (01) ==
LOC: SLEEP 16:28
PROVIDERS: ATTEND Internal Medicine
DX: G47.419 Narcolepsy without cataplexy (principal); E03.9 Hypothyroidism, unspecified; K21.9 Gastro-esophageal reflux disease without esophagitis; Z86.69 Personal history of other diseases of the nervous system and sense organs; Z87.19 Personal history of other diseases of the digestive system; Z98.890 Other specified postprocedural states; Z86.2 Personal history of diseases of the blood and blood-forming organs and certain disorders involving the immune mechanism; Z90.710 Acquired absence of both cervix and uterus; Z90.49 Acquired absence of other specified parts of digestive tract; Z87.39 Personal history of other diseases of the musculoskeletal system and connective tissue; Z79.899 Other long term (current) drug therapy

== ENCOUNTER 2020-02-19 19:02 | Emergency (ER) | payer BC ==
[2020-02-19 19:06] VITALS: TEMP 98
[2020-02-19] MEDS ORDERED: ASPIRIN 81 MG PO STA (19:23)
[2020-02-19] MEDS ORDERED: SODIUM CHLORIDE 0.9% 1,000 ML IV STA (19:23)
[2020-02-19] MEDS ORDERED: MORPHINE SULFATE 4 MG/ML SYRINGE IV STA (19:24)
--- NOTE | 2020-02-19 19:45 | XR ---
EXAMINATION TYPE: XR chest 2V DATE OF EXAM: 02/19/2020 COMPARISON: 02/14/2019 HISTORY: Chest pain TECHNIQUE: 2 views FINDINGS: Heart and mediastinum are normal. Lungs are clear. Diaphragm is normal. Bony thorax appears normal. IMPRESSION: Normal chest. No change.
[2020-02-19 19:52] LABS: Basophils % (A) 0 %; Eosinophils # (A) 0.1 k/uL (0-0.7); Eosinophils % (A) 1 %; HCT 43.1 % (34.0-46.0); HGB 14.5 gm/dL (11.4-16.0); Lymphocytes # (A) 1.4 k/uL (1.0-4.8); Lymphocytes % (A) 15 %; MCH 32.3 pg (25.0-35.0); MCHC 33.6 g/dL (31.0-37.0); MCV 96.2 fL (80.0-100.0); Mean Platelet Volume 6.7; Monocytes # (A) 0.4 k/uL (0-1.0); Monocytes % (A) 5 %; Neutrophils % (A) 77 %; Platelet Count 318 k/uL (150-450); RBC 4.48 m/uL (3.80-5.40); RDW 11.9 % (11.5-15.5)
[2020-02-19 19:55] LABS: ALT 110 U/L (4-34); AST 52 U/L (14-36); African American GFR (CKD) >90 (>60 ml/min/1.73 sqM); Albumin 4.9 g/dL (3.5-5.0); Alkaline Phosphatase 78 U/L (38-126); Anion Gap 8 mmol/L; Blood Urea Nitrogen 16 mg/dL (7-17); Calcium 9.7 mg/dL (8.4-10.2); Carbon Dioxide 25 mmol/L (22-30); Chloride 104 mmol/L (98-107); Glucose 97 mg/dL (74-99); Non-African American GFR(CKD) 87 (>60 ml/min/1.73 sqM); Potassium 3.9 mmol/L (3.5-5.1); Sodium 137 mmol/L (137-145); Total Bilirubin 0.4 mg/dL (0.2-1.3); Total Protein 8.8 g/dL (6.3-8.2)
[2020-02-19] MEDS ORDERED: KETOROLAC 30 MG/ML 1 ML VIAL IVP STA (20:11)
[2020-02-19 20:13] LABS: D-Dimer 0.24 mg/L FEU (<0.60); INR 0.9 (<1.2); Partial Thromboplastin Time 22.1 sec (22.0-30.0); Prothrombin Time 9.7 sec (9.0-12.0)
[2020-02-19] MEDS ORDERED: ONDANSETRON 4 MG/2 ML VIAL IVP STA (20:31)
[2020-02-19] MEDS ORDERED: MAG HYDROX/AL HYDROX/SIMETH 30 ML, HYOSCYAMINE ELIXIR 10 ML, LIDOCAINE VISCOUS 2% 10 ML PO STA ×3 (20:31)
--- NOTE | 2020-02-19 21:41 | ED ---
General Adult HPI - General Chief complaint: Chest Pain Stated complaint: Chest Pain Time Seen by Provider: 02/19/20 19:20 Source: patient, family, RN notes reviewed, old records reviewed Mode of arrival: wheelchair Limitations: no limitations - History of Present Illness Initial comments: 34-year-old female patient with a chief complaint left parasternal discomfort. Patient was has been bothering her for the last 2 days. Patient reports that she's had a little bit of a dry cough over this time. She states that the pain feels similar to the pleurisy that she's had in the past. Denies any other complaints. Denies any chance of being due to hysterectomy. Systemic: Pt denies fatigue, fever/chills, rash. Pt denies weakness, night sweats, weight loss. Neuro: Pt denies headache, visual disturbances, syncope or pre-syncope. HEENT: Pt denies ocular discharge or irritation, otalgia, rhinorrhea, pharyngitis or notable lymphadenopathy. Cardiopulmonary: Pt denies SOB, heart palpitations, dyspnea on exertion. Abdominal/GI: Pt denies abdominal pain, n/v/d. : Pt denies dysuria, burning w/ urination, frequency/urgency. Denies new onset urinary or bowel incontinence. MSK: Pt denies myalgia, loss of strength or function in extremities. Neuro: Pt denies new onset weakness, paresthesias. - Related Data Home Medications Medication Instructions Recorded Confirmed Biotin 5 mg PO DAILY 12/11/13 02/21/19 Cholecalciferol [Vitamin D3 (25 1,000 unit PO DAILY 06/18/15 02/21/19 Mcg = 1000 Iu)] methylPREDNISolone 8 mg PO DAILY 06/30/15 02/21/19 DULoxetine HCL [Cymbalta] 60 mg PO DAILY 07/31/18 02/21/19 Levothyroxine Sodium [Synthroid] 112 mcg PO DAILY 07/31/18 02/21/19 Dextroamphetamine/Amphetamine 10 mg PO TID@0700,1200,1700 09/20/18 02/21/19 [Adderall] rOPINIRole HCL [Requip] 0.25 - 0.5 mg PO HS 09/20/18 02/21/19 Aspirin [Adult Low Dose Aspirin EC] 81 mg PO DAILY 01/21/19 02/21/19 Belimumab [Benlysta] 200 mg SQ TH 01/21/19 02/21/19 Fluticasone Nasal [place] [Flonase 1 spray EA NOSTRIL DAILY PRN 01/21/19 02/21/19 Nasal [place]] Ibuprofen [Motrin Ib] 600 mg PO Q6H PRN 01/21/19 02/21/19 Quinicline Compound 1 dose PO DAILY 01/21/19 02/21/19 Buprenorphine HCl [Belbuca] 300 mcg BC Q12H 02/14/19 02/21/19 Omeprazole 20 mg PO DAILY 02/14/19 02/21/19 Ondansetron [Zofran ODT] 4 mg PO Q8H PRN 02/14/19 02/21/19 Pramipexole [Mirapex] 0.125 - 0.25 mg PO HS 02/14/19 02/21/19 Cyclobenzaprine [Flexeril] 10 mg PO TID PRN 02/21/19 02/21/19 LORazepam [Ativan] 0.5 mg PO HS 02/21/19 02/21/19 Allergies Allergy/AdvReac Type Severity Reaction Status Date / Time Penicillins Allergy Rash/Hives Verified 02/19/20 19:03 leflunomide [From Arava] AdvReac liver Verified 02/19/20 19:03 toxicity Review of Systems ROS Statement: Those systems with pertinent positive or pertinent negative responses have been documented in the HPI. ROS Other: All systems not noted in ROS Statement are negative. Past Medical History Past Medical History: Asthma, Deep Vein Thrombosis (DVT), Fibromyalgia, GERD/Reflux, Liver Disease, Rheumatoid Arthritis (RA), Thyroid Disorder Additional Past Medical History / Comment(s): SJOGREN'S, LUPUS, RAYNAUDS, HX LIVER TOXICITY, PANCREATITIS, FATTY LIVER, HX THRUSH, ANEMIA, PLEURISY, PROTEIN IN KIDNEYS., SEIZURE (X1 6 MONTHS AGO), STATES TOLD FLUID ON BRAIN., HEADACHES, STATES TESTS POSITIVE FOR TB BUT X-RAYS NEGATIVE. History of Any Multi-Drug Resistant Organisms: None Reported Past Surgical History: Appendectomy, Cholecystectomy, Ear Surgery, Hernia Repair, Hysterectomy, Tonsillectomy Additional Past Surgical History / Comment(s): ABSCESS after RUPTURED APPENDECTOMY, BENIGN TUMORS REMOVED FROM NECK AND MOUTH, hiatal hernia, plastic surgery on lower lip, TITANIUM screw insterted in mouth, Mediport 2014 & REMOVED., sliding hernia surgery with mesh., Back procedures, vein stripping left leg, spondylosis, Left cleft cyst Past Anesthesia/Blood Transfusion Reactions: Previous Problems w/ Anesthesia Additional Past Anesthesia/Blood Transfusion Reaction / Comment(s): States heart rate very sensitive to anesthesia r/t lupus, occ drop in BP, "I USUALLY NEED STEROIDS TO COME OUT OF SURGERY" Past Psychological History: Anxiety, Depression Smoking Status: Current every day smoker Past Alcohol Use History: None Reported Past Drug Use History: Marijuana - Past Family History Mother Family Medical History: No Reported History General Exam - General Exam Comments Initial Comments: Constitutional: NAD, AOX3, Pt has pleasant affect. HEENT: NC/AT, trachea midline, neck supple, no lymphadenopathy. External ears appear normal, without discharge. Mucous membranes moist. Eyes PERRLA, EOM intact. There is no scleral icterus. No pallor noted. Cardiopulmonary: RRR, no murmurs, rubs or gallops, no JVD noted. Lungs CTAB in anterior and posterior nolasco. No peripheral edema. Abdominal exam: Abdomen soft and non-distended. Abdomen non-tender to palpation in all 4 quadrants. Bowel sounds active in LLQ. No hepatosplenomegaly. No ecchymosis Neuro: CN II-XII intact. No nuchal rigidity. No raccon eyes, no hernández sign, no hemotympanum. No cervical spinal tenderness. MSK: Left anterior parasternal region is mildly tender to palpation. No external skin changes. No posterior calf tenderness bilaterally, homans sign negative bilaterally. Posterior tibialis and radial pulse +2 bilaterally. Sensation intact in upper and lower extremities. Full active ROM in upper and lower extremities. Limitations: no limitations Course Vital Signs 02/19/20 19:03 Temperature 98.0 F Pulse Rate 68 Respiratory 16 Rate Blood Pressure 148/89 O2 Sat by Pulse 100 Oximetry Medical Decision Making - Medical Decision Making 34-year-old female patient with a chief complaint left parasternal discomfort. Patient was has been bothering her for the last 2 days. Patient reports that she's had a little bit of a dry cough over this time. She states that the pain is somewhat pleuritic in nature and feels similar to the pleurisy that she's had in the past. Denies any other complaints. Denies any chance of being . Patient vital signs are stable physical exam is fully reducible left parasternal discomfort. Investigations are unremarkable. D-dimer is negative. Troponin negative. EKG is nonischemic. Chest revealed no acute process. The patient is likely experiencing costochondral pain. Pt is declining covid test. Patient discharged with follow-up with primary care friend will return to ER if condition worsens. Case discussed with Dr. Mathis. - Lab Data Result diagrams: 02/19/20 19:25 02/19/20 19:25 Lab Results 02/19/20 02/19/20 02/19/20 Range/Units 19:25 19:25 19:25 WBC 9.0 (3.8-10.6) k/uL RBC 4.48 (3.80-5.40) m/uL Hgb 14.5 (11.4-16.0) gm/dL Hct 43.1 (34.0-46.0) % MCV 96.2 (80.0-100.0) fL MCH 32.3 (25.0-35.0) pg MCHC 33.6 (31.0-37.0) g/dL RDW 11.9 (11.5-15.5) % Plt Count 318 (150-450) k/uL Neutrophils % 77 % Lymphocytes % 15 % Monocytes % 5 % Eosinophils % 1 % Basophils % 0 % Neutrophils # 7.0 (1.3-7.7) k/uL Lymphocytes # 1.4 (1.0-4.8) k/uL Monocytes # 0.4 (0-1.0) k/uL Eosinophils # 0.1 (0-0.7) k/uL Basophils # 0.0 (0-0.2) k/uL PT 9.7 (9.0-12.0) sec INR 0.9 (<1.2) APTT 22.1 (22.0-30.0) sec D-Dimer 0.24 (<0.60) mg/L FEU Sodium 137 (137-145) mmol/L Potassium 3.9 (3.5-5.1) mmol/L Chloride 104 (98-107) mmol/L Carbon Dioxide 25 (22-30) mmol/L Anion Gap 8 mmol/L BUN 16 (7-17) mg/dL Creatinine 0.87 (0.52-1.04) mg/dL Est GFR (CKD-EPI)AfAm >90 (>60 ml/min/1.73 sqM) Est GFR (CKD-EPI)NonAf 87 (>60 ml/min/1.73 sqM) Glucose 97 (74-99) mg/dL Calcium 9.7 (8.4-10.2) mg/dL Magnesium 2.0 (1.6-2.3) mg/dL Total Bilirubin 0.4 (0.2-1.3) mg/dL AST 52 H (14-36) U/L ALT 110 H (4-34) U/L Alkaline Phosphatase 78 (38-126) U/L Troponin I (0.000-0.034) ng/mL Total Protein 8.8 H (6.3-8.2) g/dL Albumin 4.9 (3.5-5.0) g/dL 02/19/20 Range/Units 19:25 WBC (3.8-10.6) k/uL RBC (3.80-5.40) m/uL Hgb (11.4-16.0) gm/dL Hct (34.0-46.0) % MCV (80.0-100.0) fL MCH (25.0-35.0) pg MCHC (31.0-37.0) g/dL RDW (11.5-15.5) % Plt Count (150-450) k/uL Neutrophils % % Lymphocytes % % Monocytes % % Eosinophils % % Basophils % % Neutrophils # (1.3-7.7) k/uL Lymphocytes # (1.0-4.8) k/uL Monocytes # (0-1.0) k/uL Eosinophils # (0-0.7) k/uL Basophils # (0-0.2) k/uL PT (9.0-12.0) sec INR (<1.2) APTT (22.0-30.0) sec D-Dimer (<0.60) mg/L FEU Sodium (137-145) mmol/L Potassium (3.5-5.1) mmol/L Chloride (98-107) mmol/L Carbon Dioxide (22-30) mmol/L Anion Gap mmol/L BUN (7-17) mg/dL Creatinine (0.52-1.04) mg/dL Est GFR (CKD-EPI)AfAm (>60 ml/min/1.73 sqM) Est GFR (CKD-EPI)NonAf (>60 ml/min/1.73 sqM) Glucose (74-99) mg/dL Calcium (8.4-10.2) mg/dL Magnesium (1.6-2.3) mg/dL Total Bilirubin (0.2-1.3) mg/dL AST (14-36) U/L ALT (4-34) U/L Alkaline Phosphatase (38-126) U/L Troponin I <0.012 (0.000-0.034) ng/mL Total Protein (6.3-8.2) g/dL Albumin (3.5-5.0) g/dL - EKG Data -: EKG Interpreted by Me (and Dr. Mathis ) EKG Comments: Ventricular rate 69,. 138, curious 76, QT/QTC 414 since 443. Sinus rhythm with sinus arrhythmia. Possible septal infarct age indeterminate. No concern for acute ischemia at this time. Disposition Clinical Impression: Anterior chest wall pain, Costochondral pain Disposition: HOME SELF-CARE Condition: Stable Instructions (If sedation given, give patient instructions): Costochondritis (ED), Chest Wall Pain (ED) Additional Instructions: Follow-up with primary care provider tomorrow. Return to ER if condition worsens in any way. Is patient prescribed a controlled substance at d/c from ED?: No Referrals: Steven Ferguson MD [Primary Care Provider] - 1-2 days
[2020-02-19] MEDS ORDERED: IBUPROFEN 600 MG STARTER PACK 4 TAB BTL PO STA (21:49)
[2020-02-19] MEDS ORDERED: ACETAMINOPHEN TAB 325 MG TAB PO STA (21:49)
[2020-02-19 22:03] VITALS: BP 111/81; PULSE 96; RESP 18
== END 2020-02-19 22:03 | disposition home or self-care (01) ==
LOC: EC 19:02
DX: R07.89 Other chest pain (principal); R05 Cough; J45.909 Unspecified asthma, uncomplicated; M79.7 Fibromyalgia; K21.9 Gastro-esophageal reflux disease without esophagitis; M06.9 Rheumatoid arthritis, unspecified; E07.9 Disorder of thyroid, unspecified; F41.9 Anxiety disorder, unspecified; F32.9 Major depressive disorder, single episode, unspecified; F17.200 Nicotine dependence, unspecified, uncomplicated; Z79.52 Long term (current) use of systemic steroids; Z79.1 Long term (current) use of non-steroidal anti-inflammatories (NSAID); Z79.890 Hormone replacement therapy; Z79.82 Long term (current) use of aspirin; Z79.891 Long term (current) use of opiate analgesic; Z79.899 Other long term (current) drug therapy; Z88.0 Allergy status to penicillin; Z88.8 Allergy status to other drugs, medicaments and biological substances; Z53.29 Procedure and treatment not carried out because of patient's decision for other reasons
CPT/HCPCS: 36415; 93005; 85379; 80053; 83735; 84484; 85025; 85610; 85730; 71046; 99285; 96374; 96375 ×2; 96361; J2270; J2405; J1885

== ENCOUNTER → 2021-03-25 | Outpatient (CLI) | payer BC, OTHER ==
--- NOTE | 2021-03-25 21:13 | SFUN ---
SLEEP CENTER FOLLOW UP NOTE DATE OF SERVICE: 03/25/2021 This 35-year-old lady has been followed in Sleep Center for treatment of narcolepsy. Patient continues to use Adderall for the treatment of sleepiness. She feels better with Adderall, but still sometimes has episodes of sleepiness. [place] Sleepiness Scale is in high range at 22 today. Previously we tried Nuvigil, but the patient developed swelling of her tongue after taken Nuvigil. MEDICATIONS: 1. Synthroid mcg once a day. 2. Procardia 60 mg once a day. 3. Lisinopril 20 mg once a day. 4. Zofran 8 mg once a day. 5. Prilosec 40 mg once a day. 6. Trazodone 50 mg once a day. 7. Adderall 20 mg up to 3 times a day. PHYSICAL EXAMINATION: GENERAL: A pleasant patient in no distress. VITAL SIGNS: BP 127/82, HR 62, RR 15, height 5 feet 2 inches, weight 130, body mass index 23.7, temperature 98.1, oxygen saturation at room air 100%. HEENT: PERRLA, EOMI, evaluation of oropharynx showed tongue protrudes midline. NECK: Supple, no JVD. Thyroid is not palpable. LUNGS: Clear to percussion and to auscultation. Good air exchange. No wheezing or rhonchi. HEART: S1, S2 regular. No murmurs, gallops, or rubs. ABDOMEN: Soft and nontender. Bowel sounds are present. No organomegaly appreciated. EXTREMITIES: No clubbing or cyanosis. ROLLS BAKER: Awake, alert, and oriented X3. Cranial nerves 2 to 7 intact. There is no fasciculation or atrophy. noted. No focal deficits observed. IMPRESSION: 1. Narcolepsy. 2. History of periodic limb movements. 3. History of restless legs syndrome. 4. History of pancreatitis. 5. History of leg venous problems, status post surgical treatment. 6. History of systemic lupus erythematosus. 7. History of Sjogren syndrome. 8. Hypothyroidism. 9. Acid reflux. 10.Status post partial hysterectomy. 11.Status post appendectomy. 12.Status post cholecystectomy. 13.History of fibromyalgia. 14.History of ear infection with mastoiditis in the past. PLAN: 1. The patient will continue to take Adderall 20 mg 3 times a day. This is the maximal approved dose. 2. Sleep hygiene with regular time in bed for at least 8 hours. 3. Daytime naps permitted. 4. Extreme precautions to driving. No driving if feeling sleepiness. The patient promised to follow recommendations. Thank you very much for allowing me to participate in the management of your patient. Sincerely, Carlito Waterman MD, PhD, FAASM Diplomat of [place] [employer] Sleep Medicine Board of [place] [employer] Lieutenant Governor of [facility] [place] MMODL / JENN: [phone] /
== END ==
LOC: SLEEP 13:24
PROVIDERS: ATTEND Internal Medicine
DX: G47.00 Insomnia, unspecified (principal); G25.81 Restless legs syndrome; Z87.19 Personal history of other diseases of the digestive system; M32.9 Systemic lupus erythematosus, unspecified; M35.00 Sjogren syndrome, unspecified; E03.9 Hypothyroidism, unspecified; K21.9 Gastro-esophageal reflux disease without esophagitis; Z90.10 Acquired absence of unspecified breast and nipple; K91.5 Postcholecystectomy syndrome

== ENCOUNTER → 2022-02-09 | Outpatient (CLI) | payer OTHER ==
--- NOTE | 2022-02-09 16:19 | P.PN ---
Subjective DATE: 02/09/2022 FOLLOW UP VISIT. Patient returned to sleep center for follow-up visit related to treatment of significant excessive daytime sleepiness secondary to narcolepsy. Patient is on treatment with Adderall 20 mg 3 times a day . [place] sleepiness scale is increased to 21. No episodes of cataplexy. No side effects of Adderall. Most of the time patient is able to control for alertness with medication.. MEDICATIONS:1. Adderall 20 mg 3 times a day 2. Synthroid 137 g once a day 3. Nifedipine 50 mg once a day 4. Prilosec 40 mg as necessary 5. Zofran 4 mg as necessary 6. Trazodone 50 mg as needed 7. Lisinopril 5 mg once a day During physical exam: GENERAL: A pleasant patient without any distress. VITAL SIGNS: BP 115/76, HR 70, RR 16, weight 114.8, height 5 foot 2-1/2 inches, body mass index 20.6, temperature 97.3, oxygen saturation at room air 100%. HEENT: PERRLA, EOMI. NECK: Supple. No JVD. LUNGS: Clear to percussion and to auscultation. Good air exchange. No wheezing or rhonchi. HEART: S1, S2 regular. ABDOMEN: Soft and nontender. EXTREMITIES: No clubbing or cyanosis. LEAD CARGOMAN: Awake, alert, and oriented x3. No focal deficit. Impressions: 1. Narcolepsy type II. 2. Hypothyroidism. 3. History of pancreatitis. 4. History of leg venous problems, status post surgical treatment. 5. History of systemic lupus erythematosus. 6. History of periodic limb movements. 7. Status post partial hysterectomy. 8. Acid reflux. 9. Status post cholecystectomy. 10 history of fibromyalgia Plan: 1. Patient will continue treatment with Adderall 20 mg 3 times a day. 2. Sleep hygiene with regular time in bed for at least 8 hours. 3. Daytime naps permitted 4. Precautions related to driving. No driving if feel any sleepiness. Patient is aware about civil and criminal liability for unsafe driving, promised to follow recommendations. 5. Follow up visit in 4-6 months or earlier if patient has any problems. Thank you very much for allowing me to participate in the management of your patient. Carlito Waterman MD, PhD, FAASM. Diplomat of [place] [employer], Sleep Medicine Board by [employer] [employer] Network Support Analyst of [facility] [place]
== END ==
LOC: SLEEP 15:10
PROVIDERS: ATTEND Internal Medicine
DX: G47.419 Narcolepsy without cataplexy (principal); E03.9 Hypothyroidism, unspecified; Z87.19 Personal history of other diseases of the digestive system; Z86.718 Personal history of other venous thrombosis and embolism; Z98.890 Other specified postprocedural states; G47.61 Periodic limb movement disorder; K21.9 Gastro-esophageal reflux disease without esophagitis; Z90.49 Acquired absence of other specified parts of digestive tract; Z87.39 Personal history of other diseases of the musculoskeletal system and connective tissue; Z90.710 Acquired absence of both cervix and uterus; Z79.890 Hormone replacement therapy; Z88.0 Allergy status to penicillin; Z88.8 Allergy status to other drugs, medicaments and biological substances; F17.200 Nicotine dependence, unspecified, uncomplicated

== ENCOUNTER → 2023-02-23 | Outpatient (CLI) | payer OTHER ==
--- NOTE | 2023-02-23 15:37 | P.PN ---
Subjective DATE: 02/23/2023 FOLLOW UP VISIT. Patient returned to sleep center for follow-up visit related to treatment of significant excessive daytime sleepiness secondary to narcolepsy. Patient is on treatment with Adderall 20 mg 3 times a day. With this regimen patient is able to control sure alertness during the day. No any side effects of medication .[place] sleepiness scale is in high range of 21. MEDICATIONS:1. Synthroid 137 g once a day 2. Adderall 20 mg 3 times a day 3. Lisinopril 5 mg once a day 4. Prilosec 40 mg as needed 5. Nifedipine 50 mg once a day 6. Zofran 4 mg as necessary 7. Trazodone 50 mg as needed During physical exam: GENERAL: A pleasant patient without any distress. VITAL SIGNS: BP 105. 66, HR 68, RR 18 , weight 129.4, temperature 98.3, oxygen saturation at room air 99% . HEENT: PERRLA, EOMI. NECK: Supple. No JVD. LUNGS: Clear to percussion and to auscultation. Good air exchange. No wheezing or rhonchi. HEART: S1, S2 regular. ABDOMEN: Soft and nontender. EXTREMITIES: No clubbing or cyanosis. AUXILIARY ENGINEER: Awake, alert, and oriented x3. No focal deficit. Impressions: 1. Narcolepsy type II 2. History of systemic lupus erythematosus. 3. Hypothyroidism. 4. History of pancreatitis. 5. History of periodic limb movements. 6. Acid reflux. 7. History of fibromyalgia. 8. Status post partial hysterectomy. Plan: 1. Patient will continue treatment with Adderall 20 mg 3 times a day 2. Sleep hygiene with regular time in bed for at least 8 hours. 3. Daytime naps permitted 4. Precautions related to driving. No driving if feel any sleepiness. Patient is aware about civil and criminal liability for unsafe driving, promised to follow recommendations. 5. Follow up visit in 4-6 months or earlier if patient has any problems. Thank you very much for allowing me to participate in the management of your patient. Carlito Waterman MD, PhD, FAASM. Diplomat of [place] [employer], Sleep Medicine Board by [place] [employer] Asbestos Siding Installer of [facility] [place]
== END ==
LOC: 3 N SLEEP 15:10
PROVIDERS: ATTEND Internal Medicine
DX: G47.419 Narcolepsy without cataplexy (principal); E03.9 Hypothyroidism, unspecified; K21.9 Gastro-esophageal reflux disease without esophagitis; G47.61 Periodic limb movement disorder; M32.10 Systemic lupus erythematosus, organ or system involvement unspecified; M79.7 Fibromyalgia; F17.200 Nicotine dependence, unspecified, uncomplicated; K86.81 Exocrine pancreatic insufficiency; K86.1 Other chronic pancreatitis; Z98.890 Other specified postprocedural states; Z79.899 Other long term (current) drug therapy; Z88.0 Allergy status to penicillin; Z88.8 Allergy status to other drugs, medicaments and biological substances; Z79.890 Hormone replacement therapy
CPT/HCPCS: 99212

== ENCOUNTER → 2023-11-15 | Outpatient (CLI) | payer OTHER ==
--- NOTE | 2023-11-15 12:34 | P.PN ---
Subjective DATE: 11/15/2023 FOLLOW UP VISIT. Patient returned to sleep center for follow-up visit related to treatment of significant excessive daytime sleepiness secondary to narcolepsy. Recently patient was hospitalized for kidney infection and sepsis. Presently condition normalized. Patient is on treatment with Adderall 20 mg 3 times a day, with this medication patient is able to control her alertness . [place] sleepiness scale is still increased to 20. MEDICATIONS:1. Synthroid 2. Lisinopril 5 mg once a day 3. Adderall 20 mg 3 times a day 4. Trazodone 50 mg as needed, but patient practically does not take any trazodone presently During physical exam: GENERAL: A pleasant patient without any distress. VITAL SIGNS: Please see below. HEENT: PERRLA, EOMI. NECK: Supple. No JVD. LUNGS: Clear to percussion and to auscultation. Good air exchange. No wheezing or rhonchi. HEART: S1, S2 regular. ABDOMEN: Soft and nontender. EXTREMITIES: No clubbing or cyanosis. AIRCRAFT DESIGNER: Awake, alert, and oriented x3. No focal deficit. Impressions: 1. Narcolepsy type II 2. Status post recent urinary tract infection and sepsis. 3. History of systemic lupus erythematosus. 4. Hypothyroidism. 5. History of pancreatitis. 6. History of periodic limb movements, no complaints at the present time. 7. Acid reflux. 8. History of fibromyalgia. 9. Status post partial hysterectomy. 10. patient quit smoking. Plan: 1. Patient will continue treatment with Adderall 20 mg 3 times a day 2. Sleep hygiene with regular time in bed for at least 8 hours. 3. Daytime naps permitted 4. Precautions related to driving. No driving if feel any sleepiness. Patient is aware about civil and criminal liability for unsafe driving, promised to follow recommendations. 5. Follow up visit in 4-6 months or earlier if patient has any problems. Thank you very much for allowing me to participate in the management of your patient. Carlito Waterman MD, PhD, FAASM. Diplomat of [place] [employer], Sleep Medicine Board by [place] [employer] Tester Operator Helper of [facility] [place] Objective - Vital Signs Vital signs: Vital Signs Temp 98.2 F 11/15/23 12:13 Pulse 84 11/15/23 12:13 Resp 16 11/15/23 12:13 BP 133/88 11/15/23 12:13 Pulse Ox 100 11/15/23 12:13 FiO2 Intake & Output 11/14/23 11/15/23 11/15/23 18:59 06:59 18:59 Weight 58.513 kg
[2023-11-15 12:43] VITALS: BP 133/88; PULSE 84; RESP 16; TEMP 98.2
== END ==
LOC: 3 N SLEEP 11:48
PROVIDERS: ATTEND Internal Medicine
DX: G47.419 Narcolepsy without cataplexy (principal); E03.9 Hypothyroidism, unspecified; K21.9 Gastro-esophageal reflux disease without esophagitis; Z87.440 Personal history of urinary (tract) infections; Z87.19 Personal history of other diseases of the digestive system; Z87.39 Personal history of other diseases of the musculoskeletal system and connective tissue; Z86.19 Personal history of other infectious and parasitic diseases; Z86.79 Personal history of other diseases of the circulatory system; Z90.711 Acquired absence of uterus with remaining cervical stump; Z87.891 Personal history of nicotine dependence; Z79.890 Hormone replacement therapy; Z88.0 Allergy status to penicillin; Z88.8 Allergy status to other drugs, medicaments and biological substances
CPT/HCPCS: 99212

== ENCOUNTER → 2023-12-14 | Outpatient (CLI) | payer OTHER ==
--- NOTE | 2023-12-15 10:01 | US ---
EXAMINATION TYPE: US kidneys/renal and bladder DATE OF EXAM: 12/14/2023 COMPARISON: NONE CLINICAL INDICATION: Female, 38 years old with history of N13.30 UNSPECIFIED HYDRONEPHROSIS; pt state s she was in the hospital recently for a kidney infection EXAM MEASUREMENTS: Right Kidney: 9.9 x 4.6 x 4.3 cm Left Kidney: 9.4 x 4.8 x 4.4 cm Right Kidney: No hydronephrosis or masses seen Left Kidney: No hydronephrosis or masses seen Bladder: mostly empty, appears wnl Bilateral Jets seen: No There is no evidence for hydronephrosis at this point in time. No nephrolithiasis is seen. No sumi s are identified. The urinary bladder is anechoic. IMPRESSION: No significant abnormality seen
== END | disposition home or self-care (01) ==
LOC: RADUSWWP 16:29
PROVIDERS: ATTEND Urology
DX: N13.30 Unspecified hydronephrosis (principal)
CPT/HCPCS: 76770

== ENCOUNTER → 2024-12-04 | Outpatient (CLI) | payer OTHER ==
[2024-12-04 14:01] VITALS: BP 142/90; PULSE 90; RESP 16; TEMP 98.3
--- NOTE | 2024-12-04 14:51 | P.PROGSL ---
Subjective DATE: 12/04/2024 FOLLOW UP VISIT. Patient returned to sleep center for follow-up visit related to treatment of significant excessive daytime sleepiness secondary to narcolepsy. Patient is on treatment with Adderall 20 mg 3 times a day. Usually with this dose patient is able to control her alertness during the day. No side effects of medication. [place] sleepiness scale is 21, patient feels tiredness and sleepiness today. MEDICATIONS: Please see below During physical exam: GENERAL: A pleasant patient without any distress. VITAL SIGNS: Please see below. HEENT: PERRLA, EOMI. NECK: Supple. No JVD. LUNGS: Clear to percussion and to auscultation. Good air exchange. No wheezing or rhonchi. HEART: S1, S2 regular. ABDOMEN: Soft and nontender. EXTREMITIES: No clubbing or cyanosis. SMUDGER: Awake, alert, and oriented x3. No focal deficit. Impressions: 1. Narcolepsy type II 2. History of systemic lupus erythematosus. 3. History of systemic scleroderma. 4. Hypothyroidism. 5. History of pancreatitis. 6. History of periodic limb movements, no complaints at the present time. 7. Acid reflux. 8. Status post partial hysterectomy. Plan: 1. Patient will continue treatment with Adderall 20 mg 3 times a day. 2. Sleep hygiene with regular time in bed for at least 8 hours. 3. Daytime naps permitted 4. Precautions related to driving. No driving if feel any sleepiness. Patient is aware about civil and criminal liability for unsafe driving, promised to follow recommendations. 5. Follow up visit in 6 months or earlier if patient has any problems. Thank you very much for allowing me to participate in the management of your patient. Carlito Waterman MD, PhD, FAASM. Diplomat of [place] [employer], Sleep Medicine Board by [place] [employer] All Around Gear Machine Operator of [facility] [place] Objective - Vital Signs Vital Signs: Vital Signs Temp 98.3 F 12/04/24 14:00 Pulse 90 12/04/24 14:00 Resp 16 12/04/24 14:00 BP 142/90 12/04/24 14:00 Pulse Ox 98 12/04/24 14:00 FiO2 Intake & Output 12/03/24 12/04/24 12/04/24 18:59 06:59 18:59 Weight 59.874 kg Home Medications: Home Medications Medication Instructions Recorded Confirmed Type Biotin 5 mg PO DAILY 12/11/13 12/04/24 History Cholecalciferol [Vitamin D3 (25 1,000 unit PO DAILY 06/18/15 12/04/24 History Mcg = 1000 Iu)] methylPREDNISolone 8 mg PO DAILY 06/30/15 02/21/19 History DULoxetine HCL [Cymbalta] 60 mg PO DAILY 07/31/18 02/21/19 History Levothyroxine Sodium [Synthroid] 112 mcg PO DAILY 07/31/18 12/04/24 History Dextroamphetamine/Amphetamine 10 mg PO TID@0700,1200,1700 09/20/18 12/04/24 History [Adderall] rOPINIRole HCL [Requip] 0.25 - 0.5 mg PO HS 09/20/18 02/21/19 History Aspirin [Adult Low Dose Aspirin EC] 81 mg PO DAILY 01/21/19 02/21/19 History Belimumab [Benlysta] 200 mg SQ TH 01/21/19 02/21/19 History Fluticasone Nasal [place] [Flonase 1 spray EA NOSTRIL DAILY PRN 01/21/19 02/21/19 History Nasal [place]] Ibuprofen [Motrin Ib] 600 mg PO Q6H PRN 01/21/19 12/04/24 History Quinicline Compound 1 dose PO DAILY 01/21/19 02/21/19 History Omeprazole 20 mg PO DAILY 02/14/19 12/04/24 History Ondansetron [Zofran ODT] 4 mg PO Q8H PRN 02/14/19 12/04/24 History Pramipexole [Mirapex] 0.125 - 0.25 mg PO HS 02/14/19 02/21/19 History buprenorphine HCL [Belbuca] 300 mcg BC Q12H 02/14/19 02/21/19 History Cyclobenzaprine [Flexeril] 10 mg PO TID PRN 02/21/19 02/21/19 History LORazepam [Ativan] 0.5 mg PO HS 02/21/19 02/21/19 History ondansetron HCL [Ondansetron HCl] 8 mg PO DIRECTED PRN 12/04/24 12/04/24 History
== END ==
LOC: 3 N SLEEP 13:42
PROVIDERS: ATTEND Internal Medicine
DX: G47.419 Narcolepsy without cataplexy (principal); E03.9 Hypothyroidism, unspecified; Z87.19 Personal history of other diseases of the digestive system; K21.9 Gastro-esophageal reflux disease without esophagitis; F17.200 Nicotine dependence, unspecified, uncomplicated; Z87.39 Personal history of other diseases of the musculoskeletal system and connective tissue; Z90.711 Acquired absence of uterus with remaining cervical stump; Z88.0 Allergy status to penicillin; Z88.8 Allergy status to other drugs, medicaments and biological substances
CPT/HCPCS: 99212